=== PATIENT | female | born 1975 | race Caucasian/White ===

== ENCOUNTER 2017-01-18 19:48 | Emergency (ER) | payer BC ==
[2017-01-18] MEDS ORDERED: ALBUTEROL SULFATE 0.083% NEB 2.5 MG/3 ML AMPUL NEB ONE ×3 (19:52→22:32)
[2017-01-18] MEDS ORDERED: PREDNISONE 20 MG TABLET PO ONE (19:52)
--- NOTE | 2017-01-18 19:56 | ER Document Report ---
ED Medical Screen (RME) - General Stated Complaint: DIFFICULTY BREATHING Notes: She states for the last 3 days she has been having difficulty breathing. Using her nebulizer at home with no relief. 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 States problems with asthma began about 6 years ago. Has been hospitalized for this before. Denies fever, congestion. Denies chest pain but states chest feels tight. I have greeted and performed a rapid initial assessment of this patient. A comprehensive ED assessment and evaluation of the patient, analysis of test results and completion of the medical decision making process will be conducted by additional ED providers. TRAVEL OUTSIDE OF THE [place] IN LAST 30 DAYS: No - Related Data Allergies/Adverse Reactions: Sulfa (Sulfonamide Antibiotics) Allergy (Verified 11/19/15 06:23) Past Medical History - Past Medical History Cardiac Medical History: Denies: Hx Coronary Artery Disease, Hx Heart Attack, Hx Hypertension Pulmonary Medical History: Reports: Hx Asthma - Hospitalized & February 2015 , Hx Pneumonia - 3-4 yrs ago Denies: Hx Bronchitis, Hx COPD, Hx Tuberculosis Neurological Medical History: Denies: Hx Cerebrovascular Accident, Hx Seizures Musculoskeltal Medical History: Denies Hx Arthritis Past Surgical History: Reports: Hx Breast Surgery - left breast lump removed, Hx Hysterectomy - partial, Hx Orthopedic Surgery - RIGHT ANKLE ORIF, Hx Tubal Ligation. Denies: Hx Pacemaker - Immunizations Hx Diphtheria, Pertussis, Tetanus Vaccination: Yes Physical Exam - Respiratory Notes: Patient has audible wheezing in triage. Speaks in full sentences, but noted to be taking short, shallow breaths.
[2017-01-18] MEDS ORDERED: MAGNESIUM SULFATE/D5W 1 GM/100 ML RTUPB IV ONE ×2 (22:32→22:53)
[2017-01-18] MEDS ORDERED: IPRATROPIUM/ALBUTEROL 0.5-2.5 MG/3 ML AMPUL NEB ONE (22:32)
[2017-01-18] MEDS ORDERED: METHYLPREDNISOLONE INJ 125 MG/2 ML SDV IV ONE (22:32)
--- NOTE | 2017-01-18 22:34 | ER Document Report ---
ED Respiratory Problem - General Chief Complaint: Breathing Difficulty Stated Complaint: DIFFICULTY BREATHING Time seen by provider: 22:33 Mode of Arrival: Ambulatory Information source: Patient TRAVEL OUTSIDE OF THE [place] IN LAST 30 DAYS: No - HPI Patient complains to provider of: Asthma, Cough, Short of breath Onset: Other - 3 days Duration: Worse/persistent Context: Hx asthma Short of Breath: Moderate Chest pain/discomfort: Tightness Cough: Productive Sputum amount: Small Sputum color: Yellow Sputum consistency: Mucoid At home treatment: Bronchodilators Associated symptoms: Congestion, Cough, Short of breath, Wheezing Similar symptoms previously: Yes Recently seen / treated by doctor: No Notes: Patient is a 41-year-old female with a history of asthma who presents to the emergency room complaining of difficulty breathing that's been worsening over the past 3 days, she recently completed a course of steroids approximate 5 days ago, she reports increased pollen contact over the last few days, a cough productive of thick yellow greenish phlegm, denies fever, has been using her albuterol inhaler and nebulizer treatments at home with minimal intermittent relief, denies a fever, no chest pain - Related Data Allergies/Adverse Reactions: Sulfa (Sulfonamide Antibiotics) Allergy (Verified 11/19/15 06:23) Past Medical History - General Information source: Patient - Social History Smoking Status: Never Smoker Chew tobacco use (# tins/day): No Frequency of alcohol use: None Drug Abuse: None Family History: Reviewed & Not Pertinent Patient has suicidal ideation: No Patient has homicidal ideation: No - Past Medical History Cardiac Medical History: Denies: Hx Coronary Artery Disease, Hx Heart Attack, Hx Hypertension Pulmonary Medical History: Reports: Hx Asthma - Hospitalized & February 2015 , Hx Pneumonia - 3-4 yrs ago Denies: Hx Bronchitis, Hx COPD, Hx Tuberculosis Neurological Medical History: Denies: Hx Cerebrovascular Accident, Hx Seizures Renal/ Medical History: Denies: Hx Peritoneal Dialysis Musculoskeltal Medical History: Denies Hx Arthritis Past Surgical History: Reports: Hx Breast Surgery - left breast lump removed, Hx Hysterectomy - partial, Hx Orthopedic Surgery - RIGHT ANKLE ORIF, Hx Tubal Ligation. Denies: Hx Pacemaker - Immunizations Hx Diphtheria, Pertussis, Tetanus Vaccination: Yes Hx Pneumococcal Vaccination: 02/07/15 Review of Systems - Review of Systems Constitutional: No symptoms reported EENT: No symptoms reported Cardiovascular: No symptoms reported Respiratory: See HPI Gastrointestinal: No symptoms reported Genitourinary: No symptoms reported Female Genitourinary: No symptoms reported Musculoskeletal: No symptoms reported Skin: No symptoms reported Hematologic/Lymphatic: No symptoms reported Neurological/Psychological: No symptoms reported -: Yes All other systems reviewed and negative Physical Exam - Vital signs Vitals: Temp Pulse Resp BP Pulse Ox 98.3 F 131 H 28 H 142/88 H 93 01/18/17 19:53 01/18/17 19:53 01/18/17 19:53 01/18/17 19:53 01/18/17 19:53 Interpretation: Hypertensive, Tachycardic, Tachypneic - General General appearance: Appears well, Alert - HEENT Head: Normocephalic, Atraumatic Eyes: Normal Pupils: PERRL - Respiratory Respiratory status: No respiratory distress Chest status: Nontender Breath sounds: Decreased air movement, Nonproductive cough, Wheezing Chest palpation: Normal - Cardiovascular Rhythm: Regular, Tachycardia Heart sounds: Normal auscultation Murmur: No - Abdominal Inspection: Normal Distension: No distension Bowel sounds: Normal Tenderness: Nontender Organomegaly: No organomegaly - Back Back: Normal, Nontender - Extremities General upper extremity: Normal inspection, Nontender, Normal color, Normal ROM , Normal temperature General lower extremity: Normal inspection, Nontender, Normal color, Normal ROM , Normal temperature, Normal weight bearing. No: Cris's sign - Neurological Neuro grossly intact: Yes Cognition: Normal Orientation: AAOx4 Becca Coma Scale Eye Opening: Spontaneous Becca Coma Scale Verbal: Oriented Becca Coma Scale Motor: Obeys Commands Becca Coma Scale Total: 15 Speech: Normal Motor strength normal: LUE, RUE, LLE, RLE Sensory: Normal - Psychological Associated symptoms: Normal affect, Normal mood - Skin Skin Temperature: Warm Skin Moisture: Dry Skin Color: Normal Course - Re-evaluation Re-evalutation: 01/19/17 01:43 Patient reports feeling much better, and ready to go home, she still has mild wheezing on exam, but is able to talk in full sentences, and vital signs are stable, she will be discharged with a tapering dose pack of steroids, and instructions for follow-up, advised to return if symptoms worsen, patient acknowledges understanding and agreement with this plan - Vital Signs Vital signs: Temp Pulse Resp BP Pulse Ox 98.3 F 131 H 28 H 142/88 H 93 01/18/17 19:53 01/18/17 19:53 01/18/17 19:53 01/18/17 19:53 01/18/17 19:53 - Diagnostic Test Radiology reviewed: Image reviewed, Reports reviewed Discharge - Discharge Clinical Impression: Acute asthma exacerbation Qualifiers: Asthma severity: moderate persistent Qualified Code(s): J45.41 - Moderate persistent asthma with (acute) exacerbation Condition: Stable Disposition: HOME, SELF-CARE Instructions: Asthma ([facility]) Additional Instructions: Follow up with your primary care provider in one to 2 days. Return to the emergency room immediately if symptoms worsen or any additional concerns. Prescriptions: Prednisone 40 mg PO DAILY #25 tablet Referrals: SHAKEEL ESTES MD [Primary Care Provider] - Follow up as needed
[2017-01-19] MEDS ORDERED: ALBUTEROL SULFATE 0.083% NEB 2.5 MG/3 ML AMPUL NEB ONE (00:52)
[2017-01-19 02:05] VITALS: BP 125/73
== END 2017-01-19 02:32 | disposition home or self-care (01) ==
LOC: ER 19:48
DX: J45.41 Moderate persistent asthma with (acute) exacerbation (principal); R06.02 Shortness of breath; R05 Cough; R00.0 Tachycardia, unspecified; Z88.2 Allergy status to sulfonamides; Z87.01 Personal history of pneumonia (recurrent)
CPT/HCPCS: 94640 ×2; 99285; 96375; 96365; 96366; 71020; J2930; J3475 ×2; J7512; J7620

== ENCOUNTER 2017-02-17 20:02 | Emergency (ER) | payer BC ==
[2017-02-17] MEDS ORDERED: MAGNESIUM SULFATE/D5W 2 GM/200 ML RTUPB IV ONE (20:09)
[2017-02-17] MEDS ORDERED: ALBUTEROL SULFATE 0.083% NEB 2.5 MG/3 ML AMPUL NEB ONE (20:15)
[2017-02-17] MEDS ORDERED: NORMAL SALINE 1000 ML 1,000 ML IV ONE (20:16)
[2017-02-17] MEDS: MAGNESIUM SULFATE/D5W 100 ML IV SCH ×2 (20:18→21:58)
--- NOTE | 2017-02-17 20:24 | ER Document Report ---
ED General - General Stated Complaint: RESPIRATORY DISTRESS Notes: A she is a 41-year-old female past medical history of asthma that has required multiple admissions in the past but no prior intubations who presents in respiratory distress. Patient states that she began having progressive worsening of her wheezing and coughing today. She was using home nebulizer treatments with minimal to no improvement of her symptoms. This did prompt her to contact EMS. States she's had similar exacerbations in the past that required hospitalization. She was recently treated with a prednisone taper that she completed 2 weeks ago and states she had been doing well up until last 2 days. She denies any constitutional symptoms or fever. No chest pain or pleuritic pain. Nothing worsens or symptoms. She has not seen her primary care doctor since her symptoms started getting worse. TRAVEL OUTSIDE OF THE [place] IN LAST 30 DAYS: No - Related Data Allergies/Adverse Reactions: Sulfa (Sulfonamide Antibiotics) Allergy (Verified 11/19/15 06:23) Past Medical History - General Information source: Patient - Social History Smoking Status: Never Smoker Frequency of alcohol use: None Drug Abuse: None Lives with: Family Family History: Reviewed & Not Pertinent - Past Medical History Cardiac Medical History: Denies: Hx Coronary Artery Disease, Hx Heart Attack, Hx Hypertension Pulmonary Medical History: Reports: Hx Asthma - Hospitalized h & February 2015 , Hx Pneumonia - 3-4 yrs ago Denies: Hx Bronchitis, Hx COPD, Hx Tuberculosis Neurological Medical History: Denies: Hx Cerebrovascular Accident, Hx Seizures Renal/ Medical History: Denies: Hx Peritoneal Dialysis Musculoskeltal Medical History: Denies Hx Arthritis Past Surgical History: Reports: Hx Breast Surgery - left breast lump removed, Hx Hysterectomy - partial, Hx Orthopedic Surgery - RIGHT ANKLE ORIF, Hx Tubal Ligation. Denies: Hx Pacemaker - Immunizations Hx Diphtheria, Pertussis, Tetanus Vaccination: Yes Hx Pneumococcal Vaccination: 02/07/15 Review of Systems - Review of Systems Notes: Constitutional: Negative for fever. HENT: Negative for sore throat. Eyes: Negative for visual changes. Cardiovascular: Negative for chest pain. Respiratory: Positive for shortness of breath. Gastrointestinal: Negative for abdominal pain, vomiting or diarrhea. Genitourinary: Negative for dysuria. Musculoskeletal: Negative for back pain. Skin: Negative for rash. Neurological: Negative for headaches, weakness or numbness. 10 point ROS negative except as marked above and in HPI. Physical Exam - Vital signs Vitals: Temp Pulse Resp BP Pulse Ox 98.8 F 120 H 28 H 134/80 H 95 02/17/17 20:10 02/17/17 20:10 02/17/17 20:10 02/17/17 20:10 02/17/17 20:10 Interpretation: Tachycardic, Tachypneic Notes: PHYSICAL EXAMINATION: GENERAL: Patient appears in moderate respiratory distress, uncomfortable in appearance. HEAD: Atraumatic, normocephalic. EYES: Pupils equal round and reactive to light, extraocular movements intact, sclera anicteric, conjunctiva are normal. ENT: nares patent, oropharynx clear without exudates. Moderately dry mucous membranes. NECK: Normal range of motion, supple without lymphadenopathy LUNGS: Tachypnea with initial respiratory rate of 34 at time of assessment. Diminished air movement in all lung soto. Severe wheezing with prolonged expiratory phase in all lung soto. HEART: Tachycardia without murmurs ABDOMEN: Soft, nontender, normoactive bowel sounds. No guarding, no rebound. No masses appreciated. EXTREMITIES: Normal range of motion, no pitting or edema. No cyanosis. NEUROLOGICAL: No focal neurological deficits. Moves all extremities spontaneously and on command. PSYCH: Normal mood, normal affect. SKIN: Warm, Dry, normal turgor, no rashes or lesions noted. Course - Re-evaluation Re-evalutation: 02/17/17 20:17 Patient presents in moderate respiratory distress, with super clavicular costal retractions. She is tachypneic. She has already received 125 mg of Solu- Medrol prior to arrival. She will be started on 2 g of IV magnesium with rapid infusion over 20 minutes. IV fluids will be initiated. She will be started on continuous albuterol nebulizers at this time. sales vendor will be placed. She will require frequent reassessments given her distress. 2044-patient continues with moderate respiratory distress although improved relative to arrival. She remains slightly tachypneic with wheezing in all lung soto. Will continue to monitor 02/17/17 21:57 On reassessment, patient is dramatically improved no longer having any respiratory distress. She has only a scant wheeze in the bilateral lung soto on expiratory phase at this time. Once she completes her continuous nebulizer, will plan for monitoring for at least one hour off continuous nebulizer prior to consideration of discharge 02/17/17 23:22 Patient's work of breathing is now normalized although her oxygen saturation is at 92% on room air. I have discussed at length with the patient that given her oxygen saturation dips as low as 89% despite our interventions she should be admitted to the hospital as she is very high risk for decompensation if she is to be discharged. Patient states that she's been admitted so many times in the past and so tired of being in hospitals that she really does not want to be admitted. She verbalizes an understanding that if she goes home, she could get significantly sicker and even . Patient does have capacity to make this decision. She has sound reasoning and logic. She is not intoxicated. Multiple her family members at the bedside are witnesses conversation including her daughters. She states that she plans to follow-up in her pulmonologists office immediately in the morning and will immediately return to the emergency department if she begins to get sicker. - Vital Signs Vital signs: Temp Pulse Resp BP Pulse Ox 98.8 F 120 H 28 H 105/83 90 L 02/17/17 20:10 02/17/17 20:10 02/17/17 20:10 02/17/17 23:01 02/17/17 23:01 - Diagnostic Test Radiology reviewed: Image reviewed, Reports reviewed Radiology results interpreted by me: 02/18/17 03:10 Chest x-ray: No acute infiltrate Critical Care Note - Critical Care Note Total time excluding time spent on procedures (mins): 40 Comments: Critical care time spent obtaining history from patient or surrogate, discussions with consultants, development of treatment plan with patient or surrogate, evaluation of patient's response to treatment, examination of patient , ordering and performing treatments and interventions, ordering and review of laboratory studies, re-evaluation of patient's condition, ordering and review of radiographic studies and review of old charts Discharge - Discharge Clinical Impression: Asthma exacerbation, Respiratory distress Condition: Serious Disposition: HOME, SELF-CARE Additional Instructions: You were seen for an asthma exacerbation. We recommended you be admitted to the hospital but you have elected to go home and follow-up with your dosimetrist in the morning. It is very important that you return to the emergency department immediately if you began to have worsening difficulty breathing that does not respond to your normal home nebulizers. You are also being sent home on a five-day course of steroids that you should start taking tomorrow. Please also follow closely with your primary care physician. you should also return to emergency department if you develop fever greater than 101 , persistent cough, persistent vomiting, pass out, or any other symptoms that are concerning to you. Prescriptions: Prednisone [Deltasone 20 mg Tablet] 3 tab PO DAILY 5 Days Referrals: SHAKEEL ESTES MD [Primary Care Provider] - Follow up as needed
[2017-02-17 23:51] VITALS: BP 105/83
== END 2017-02-17 23:25 | disposition home or self-care (01) ==
LOC: ER 20:02
DX: J45.901 Unspecified asthma with (acute) exacerbation (principal); R05 Cough; R06.82 Tachypnea, not elsewhere classified; R00.0 Tachycardia, unspecified; Z88.2 Allergy status to sulfonamides
CPT/HCPCS: 94640; 99291; 96361; 96365; 71010; J3475; J7030

== ENCOUNTER → 2017-06-15 | Outpatient (CLI) | payer BC ==
--- NOTE | 2017-06-15 15:32 | RADIOLOGY REPORT (SQ) ---
EXAM DESCRIPTION: C SP 4 OR 5 VIEWS COMPLETED DATE/TIME: 06/15/2017 11:25 am REASON FOR STUDY: CERVICALGIA COMPARISON: None. NUMBER OF VIEWS: Five views including obliques. TECHNIQUE: AP, lateral, obliques and odontoid radiographic images acquired of the cervical spine. LIMITATIONS: None. FINDINGS: MINERALIZATION: Normal. SEGMENTATION: Normal. ALIGNMENT: Normal. VERTEBRAE: Maintained height. No fracture or worrisome bone lesion. DISCS: Multilevel disc space narrowing with osteophytes. POSTERIOR ELEMENTS: Pedicles and facets are intact. No posterior arch defects. Facet arthropathy is present. FORAMINA: Narrowed at the levels of maximal disc and facet disease. HARDWARE: None in the spine. PARASPINAL SOFT TISSUES: Normal. OTHER: No other significant finding. IMPRESSION: SPONDYLOSIS WITHOUT BONE LESION OR FRACTURE. TECHNICAL DOCUMENTATION: JOB ID: [id number] [employer]- All Rights Reserved
== END ==
LOC: OD 10:19
PROVIDERS: ATTEND Physician Assistant
DX: M54.2 Cervicalgia (principal)
CPT/HCPCS: 72050

== ENCOUNTER → 2017-08-23 | Outpatient (CLI) | payer BC ==
[2017-08-23 12:26] LABS: ABSOLUTE BASOPHILS # (AUTO) 0.1 10^3/uL (0.0-0.2); ABSOLUTE EOSINOPHILS # (AUTO) 0.4 10^3/uL (0.0-0.6); ABSOLUTE LYMPHOCYTES (AUTO) 2.7 10^3/uL (0.5-4.7); ABSOLUTE MONOCYTES (AUTO) 0.9 10^3/uL (0.1-1.4); ABSOLUTE NEUT (AUTO) 9.9 10^3/uL (1.7-8.2); BASOPHILS % (AUTO) 0.7 % (0-2); EOSINOPHILS % (AUTO) 2.9 % (0-6); HEMATOCRIT 39.4 % (36.0-47.0); HEMOGLOBIN 12.7 g/dL (12.0-15.5); HGB HCT DIFFERENCE -1.3; LYMPHOCYTES % (AUTO) 19.1 % (13-45); MEAN CORPUSCULAR HEMOGLOBIN 28.6 pg (27.0-33.4); MEAN CORPUSCULAR HGB CONC 32.3 g/dL (32.0-36.0); MEAN CORPUSCULAR VOLUME 89 fl (80-97); MONOCYTES % (AUTO) 6.7 % (3-13); RED BLOOD COUNT 4.45 10^6/uL (3.72-5.28); RED CELL DISTRIBUTION WIDTH 13.7 % (11.5-14.0); SEGMENTED NEUTROPHILS % (AUTO) 70.6 % (42-78)
[2017-08-23 12:50] LABS: ALANINE AMINOTRANSFERASE 32 U/L (9-52); ALBUMIN 3.9 g/dL (3.5-5.0); ALKALINE PHOSPHATASE 96 U/L (38-126); ANION GAP 10 (5-19); ASPARTATE AMINO TRANSFERASE 14 U/L (14-36); BILIRUBIN,DIRECT 0.3 mg/dL (0.0-0.4); BILIRUBIN,TOTAL 0.5 mg/dL (0.2-1.3); BLOOD UREA NITROGEN 14 mg/dL (7-20); CALCIUM 9.5 mg/dL (8.4-10.2); CARBON DIOXIDE 26 mmol/L (22-30); CHLORIDE 106 mmol/L (98-107); CREATINE KINASE 59 U/L (30-135); CREATININE RESULT 0.77 mg/dL (0.52-1.25); GLUCOSE 77 mg/dL (75-110); POTASSIUM 4.5 mmol/L (3.6-5.0); SODIUM 141.6 mmol/L (137-145); TOTAL PROTEIN 6.8 g/dL (6.3-8.2)
[2017-08-23 12:57] LABS: CREATINE KINASE MB 0.49 ng/mL (<4.55)
[2017-08-23 13:03] LABS: TROPONIN I < 0.012 ng/mL
[2017-08-23 13:22] LABS: ERYTHROCYTE SEDIMENTATION RATE 16 mm/hr (0-20)
== END ==
LOC: OD 10:59
PROVIDERS: ATTEND Physician Assistant
DX: R07.9 Chest pain, unspecified (principal)
CPT/HCPCS: 36415; 80053; 82550; 82553; 84484; 85025; 85652

== ENCOUNTER 2017-11-17 15:04 | Emergency (ER) | payer BC | END 2017-11-17 17:05 | disposition home or self-care (01) | LOC: ER 15:04 | DX: H10.9 Unspecified conjunctivitis (principal); J02.9 Acute pharyngitis, unspecified | CPT/HCPCS: 99282 ==

== ENCOUNTER 2017-12-25 14:01 | Emergency (ER) | payer BC ==
[2017-12-25] MEDS ORDERED: ALBUTEROL SULFATE 0.083% NEB 2.5 MG/3 ML AMPUL NEB ONE (15:51)
--- NOTE | 2017-12-25 15:52 | ER Document Report ---
HPI - HPI Pain Level: Denies Context: Patient is a 42-year-old female presents emergency department with a chief complaint of feeling tired, nonproductive cough, nausea over the past couple of days. Patient states that she was sent here by her employer to be checked out. Patient does admit to a history of asthma that she follows with Dr. Mcdaniel for and is on chronic prednisone. She states she occasionally coughs up some sputum but denies any ortiz colored sputum, fever, dyspnea on exertion or shortness of breath. She denies any fevers or chills. Previous hysterectomy - REPRODUCTIVE LMP: hyst Reproductive: DENIES: : Past Medical History - Social History Smoking Status: Never Smoker Chew tobacco use (# tins/day): No Frequency of alcohol use: None Drug Abuse: None Family History: Reviewed & Not Pertinent Patient has suicidal ideation: No Patient has homicidal ideation: No - Past Medical History Cardiac Medical History: Denies: Hx Coronary Artery Disease, Hx Heart Attack, Hx Hypertension Pulmonary Medical History: Reports: Hx Asthma - Hospitalized & February 2015 , Hx Pneumonia - 3-4 yrs ago Denies: Hx Bronchitis, Hx COPD, Hx Tuberculosis Neurological Medical History: Denies: Hx Cerebrovascular Accident, Hx Seizures Renal/ Medical History: Denies: Hx Peritoneal Dialysis Musculoskeltal Medical History: Denies Hx Arthritis Past Surgical History: Reports: Hx Breast Surgery - left breast lump removed, Hx Hysterectomy, Hx Orthopedic Surgery - RIGHT ANKLE ORIF, Hx Tubal Ligation. Denies: Hx Pacemaker - Immunizations Hx Diphtheria, Pertussis, Tetanus Vaccination: Yes Hx Pneumococcal Vaccination: 02/07/15 Vertical Provider Document - CONSTITUTIONAL Agree With Documented VS: Yes Notes: PHYSICAL EXAM GENERAL: Alert, interacts well. HEAD: Normocephalic, atraumatic. EYES: Pupils equal, round, and reactive to light. Extraocular movements intact. ENT: Oral mucosa moist, tongue midline. NECK: Full range of motion. Supple. Trachea midline. LUNGS: MIld wheezes bilaterally worse in KERRI, rales, or rhonchi. No respiratory distress. HEART: Regular rate and rhythm. No murmurs, gallops, or rubs. ABDOMEN: Soft, nondistended, nontender. No guarding, rebound, or rigidity.. Bowel sounds present in all 4 quadrants. EXTREMITIES: Moves all 4 extremities spontaneously. No edema, radial and dorsalis pedis pulses 2/4 bilaterally. No cyanosis. NEUROLOGICAL: Alert and oriented x4. Normal speech. PSYCH: Normal affect, normal mood. SKIN: Warm, dry, normal turgor. No rashes or lesions noted. - INFECTION CONTROL TRAVEL OUTSIDE OF THE [place] IN LAST 30 DAYS: No - RESPIRATORY O2 Sat by Pulse Oximetry: 95 Course - Re-evaluation Re-evalutation: 12/25/17 16:46 Patient is a 42-year-old female presents emergency department the chief complaint of nausea, nonproductive cough. Patient's vitals are stable and able to ambulate and maintain the saturation 9690% on room air. Patient states she clinically feels better after breathing treatment. Chest x-ray does not show any evidence of an infiltrate. 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 Mcdaniel tomorrow otherwise will discharge home with rescue inhaler and Zofran. Discussed strict return precautions otherwise patient is stable for discharge home. - Vital Signs Vital signs: Temp Pulse Resp BP Pulse Ox 98.6 F 108 H 18 131/82 H 95 12/25/17 14:21 12/25/17 14:21 12/25/17 14:21 12/25/17 14:21 12/25/17 14:21 - Diagnostic Test Radiology reviewed: Image reviewed, Reports reviewed Discharge - Discharge Clinical Impression: Nausea Asthma exacerbation Qualifiers: Asthma severity: unspecified severity Asthma persistence: unspecified Qualified Code(s): J45.901 - Unspecified asthma with (acute) exacerbation Condition: Good Disposition: HOME, SELF-CARE Instructions: Asthma ([facility]) Prescriptions: Albuterol Sulfate [Proair HFA] 1 - 2 puff IH Q4 PRN #1 inhaler PRN Reason: Ondansetron [Zofran Odt 4 mg Tablet] 1 - 2 tab PO Q4H PRN #15 tab.rapdis PRN Reason: For Nausea/Vomiting Forms: Return to Work Referrals: JEAN PIERRE MCDANIEL MD [ACTIVE STAFF] - Follow up tomorrow
--- NOTE | 2017-12-25 16:11 | RADIOLOGY REPORT (SQ) ---
Exam Description CHEST PA/LAT Completed Date/time 12/25/2017 4:03 PM Reason For Study h/o asthma, sweats and prod cough Comparison 01/18/2017. Exam Parameters NUMBER OF VIEWS: Two views. TECHNIQUE: Digital Frontal and Lateral radiographic views of the chest acquired. Limitations: (None). Findings LUNGS AND PLEURA: No opacities, masses or pneumothorax No pleural effusion. MEDIASTINUM AND HILAR STRUCTURES: No masses or contour abnormalities. HEART AND VASCULAR STRUCTURES: Heart size is normal. No evidence for failure. (Normal appearing aorta for age.) . BONES: No acute findings. HARDWARE: None. Impression NO SIGNIFICANT RADIOGRAPHIC FINDING IN THE CHEST. Technical Documentation 2010 [employer]- All Rights Reserved
[2017-12-25 16:53] VITALS: BP 123/84
== END 2017-12-25 16:50 | disposition home or self-care (01) ==
LOC: ER 14:01
DX: J45.901 Unspecified asthma with (acute) exacerbation (principal); R11.0 Nausea
CPT/HCPCS: 71046; 94640; 99283

== ENCOUNTER 2018-01-02 08:45 | Emergency (ER) | payer BC ==
[2018-01-02] MEDS ORDERED: ALBUTEROL SULFATE 0.083% NEB 2.5 MG/3 ML AMPUL NEB ONE ×4 (09:22→12:36)
[2018-01-02] MEDS ORDERED: IPRATROPIUM/ALBUTEROL 0.5-2.5 MG/3 ML AMPUL NEB ONE (09:22)
--- NOTE | 2018-01-02 09:25 | ER Document Report ---
ED Respiratory Problem - General Mode of Arrival: Ambulatory Information source: Patient TRAVEL OUTSIDE OF THE [place] IN LAST 30 DAYS: No - HPI Patient complains to provider of: Asthma, Cough, Short of breath Onset: This morning Context: Hx asthma. denies: Smoker Cough: Productive At home treatment: Bronchodilators - Albuterol Associated symptoms: Other - see notes above - General Chief Complaint: Wheezing >1yr age Stated Complaint: BREATHING PROBLEMS Time Seen by Provider: 01/02/18 09:11 Notes: 42 year old female with history of asthma (daily Prednisone x4 years; recently started tapering medication now on one 5mg daily) presents to the ED complaining of shortness of breath and wheezing that started this morning. Patient took an Albuterol treatment at 0600 with minimal relief. 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 Mcdaniel, but was unable to get an appointment today. When the patient continued to wheeze she decided to come to the ED. Patient additionally complains of a productive cough. Patient has not been intubated secondary to her asthma exacerbations. (MANUELA ESTES) - Related Data Allergies/Adverse Reactions: Sulfa (Sulfonamide Antibiotics) Allergy (Verified 01/02/18 08:48) Past Medical History - General Information source: Patient - Social History Smoking Status: Never Smoker Chew tobacco use (# tins/day): No Frequency of alcohol use: None Drug Abuse: None Family History: Reviewed & Not Pertinent - Past Medical History Cardiac Medical History: Denies: Hx Coronary Artery Disease, Hx Heart Attack, Hx Hypertension Pulmonary Medical History: Reports: Hx Asthma - Hospitalized January & February 2015 , Hx Pneumonia - 3-4 yrs ago Denies: Hx Bronchitis, Hx COPD, Hx Tuberculosis Neurological Medical History: Denies: Hx Cerebrovascular Accident, Hx Seizures Renal/ Medical History: Denies: Hx Peritoneal Dialysis Musculoskeltal Medical History: Denies Hx Arthritis Past Surgical History: Reports: Hx Breast Surgery - left breast lump removed, Hx Hysterectomy, Hx Orthopedic Surgery - RIGHT ANKLE ORIF, Hx Tubal Ligation. Denies: Hx Pacemaker - Immunizations Hx Diphtheria, Pertussis, Tetanus Vaccination: Yes Hx Pneumococcal Vaccination: 02/07/15 Review of Systems - Review of Systems Constitutional: No symptoms reported EENT: No symptoms reported Cardiovascular: No symptoms reported Respiratory: See HPI, Cough, Short of breath, Sputum, Wheezing Gastrointestinal: No symptoms reported Genitourinary: No symptoms reported Female Genitourinary: No symptoms reported Musculoskeletal: No symptoms reported Skin: No symptoms reported Hematologic/Lymphatic: No symptoms reported Neurological/Psychological: No symptoms reported -: Yes All other systems reviewed and negative Physical Exam - Vital signs Vitals: Temp Pulse Resp BP Pulse Ox 98.0 F 125 H 20 141/82 H 94 01/02/18 08:49 01/02/18 08:49 01/02/18 08:49 01/02/18 08:49 01/02/18 08:49 - Notes Notes: GENERAL: Alert, interacts well. No acute distress. HEAD: Normocephalic, atraumatic. EYES: Pupils equal, round, and reactive to light. Extraocular movements intact. ENT: Oral mucosa moist, tongue midline. NECK: Full range of motion. Supple. Trachea midline. LUNGS: Diffuse expiratory wheezing. Good air movement. No rales, or rhonchi. No respiratory distress. No tachypnea or accessory muscle use. HEART: Regular rate and rhythm. No murmurs, gallops, or rubs. ABDOMEN: Soft, non-tender. Non-distended. Bowel sounds present in all 4 quadrants. EXTREMITIES: Moves all 4 extremities spontaneously. No edema, radial pulses 2/4 bilaterally. No cyanosis. NEUROLOGICAL: Alert and oriented x3. Normal speech. PSYCH: Normal affect, normal mood. SKIN: Warm, dry, normal turgor. No rashes or lesions noted. (MANUELA ESTES) Course - Re-evaluation Re-evalutation: 01/02/18 10:48 Initially patient has a moderate amount of wheezing although she is in no obvious respiratory distress, no significant hypoxia. Patient has recently been tapered from 10 mg a day of prednisone to 5 mg a day, patient will be increased to 7.5 mg and trialed on multiple breathing treatments here. After 3 [id number] breathing treatments patient has some decrease in her wheezing and feels better however she still has significant wheezing. One more 5 mg albuterol breathing treatment will be attempted. 01/02/18 12:24 Wheezing is improved although not completely resolved with a fourth breathing treatment. Patient is feeling much better. Patient is agreeable to going home at this time, we will slightly increase her prednisone to 7.5 mg per day. Patient will be discharged to home, will take albuterol breathing treatments every 4 hours for the next 2 days, will return if she worsens or does not improve. 01/02/18 12:29 01/02/18 12:37 Discharge vitals revealed hypoxia at 90-91%. Obviously with this oxygen saturation the patient cannot be discharged home, patient will be trialed on one more breathing treatment and if hypoxia does not resolve patient will be admitted instead. 01/02/18 14:16 After repeat breathing treatment patient's oxygen saturations are consistently approximately 97% on room air, he was ambulated and did not desaturate below 94% . Patient is in no acute distress, will be discharged home at this time. ( NEWTON CHANEY) - Vital Signs Vital signs: Temp Pulse Resp BP Pulse Ox 98.7 F 112 H 18 113/69 95 01/02/18 14:05 01/02/18 14:05 01/02/18 14:05 01/02/18 14:05 01/02/18 14:05 Discharge - Discharge Clinical Impression: Acute asthma exacerbation Qualifiers: Asthma severity: moderate Asthma persistence: persistent Qualified Code(s): J45.41 - Moderate persistent asthma with (acute) exacerbation Hypertension Qualifiers: Hypertension type: essential hypertension Qualified Code(s): I10 - Essential ( primary) hypertension Condition: Stable Disposition: HOME, SELF-CARE Additional Instructions: Please take your albuterol breathing treatments 1 treatment every 4 hours while awake for the next 2 days. You may then decrease as needed back to regular schedule. Please increase your prednisone to 7.5 mg once a day for the next week then returned to 5 mg a day and return to regular weaning schedule. Prescriptions: Albuterol Sulfate [Albuterol Sulfate 2.5mg/3 mL] 2.5 mg IH Q4 #30 unit Prednisone 2.5 mg PO DAILY #7 tablet Forms: Elevated Blood Pressure, Return to Work Referrals: SHAKEEL ESTES MD [Primary Care Provider] - Follow up in 1 week Scribe Attestation: 01/02/18 14:50 I personally performed the services described in the documentation, reviewed and edited the documentation which was dictated to the scribe in my presence, and it accurately records my words and actions. (NEWTON CHANEY) Scribe Documentation - Scribe Written by Jameeibe:: Richard Wang, 01/02/2018 0947 acting as scribe for :: Joanna
[2018-01-02] MEDS ORDERED: PREDNISONE 5 MG TABLET PO ONE (10:47)
[2018-01-02 14:06] VITALS: BP 113/69
== END 2018-01-02 14:05 | disposition home or self-care (01) ==
LOC: ER 08:45
DX: J45.41 Moderate persistent asthma with (acute) exacerbation (principal); I10 Essential (primary) hypertension; Z88.2 Allergy status to sulfonamides
CPT/HCPCS: 94640 ×2; 99284; J7512; J7620

== ENCOUNTER 2018-01-12 13:44 | Emergency (ER) | payer BC ==
[2018-01-12] MEDS ORDERED: IPRATROPIUM/ALBUTEROL 0.5-2.5 MG/3 ML AMPUL NEB ONE (13:55)
[2018-01-12] MEDS ORDERED: PREDNISOLONE SOD PHOS 15 MG/5 ML ORAL SYRING PO ONE (13:55)
--- NOTE | 2018-01-12 13:58 | ER Document Report ---
ED Medical Screen (RME) - General Chief Complaint: Shortness Of Breath Stated Complaint: WHEEZING Time Seen by Provider: 01/12/18 13:55 Notes: Patient is here because she is having difficulty breathing and wheezing. She has a history of asthma for which she has home nebulizer and has been using albuterol every 4 hours and Pulmicort twice a day. She was on prednisone, but only taking 2.5 mg pills and ran out of them. Has a cough productive of thick yellow sputum. TRAVEL OUTSIDE OF THE [place] IN LAST 30 DAYS: No - Related Data Allergies/Adverse Reactions: Sulfa (Sulfonamide Antibiotics) Allergy (Verified 01/02/18 08:48) Past Medical History - Social History Cigarette use (# per day): No Chew tobacco use (# tins/day): No Family history: Reviewed & Not Pertinent Pulmonary Medical History: Reports: Hx Asthma - Hospitalized January & February 2015 , Hx Pneumonia - 3-4 yrs ago Past Surgical History: Reports: Hx Breast Surgery - left breast lump removed, Hx Genitourinary Surgery - Bladder tuck, Hx Hysterectomy, Hx Orthopedic Surgery - RIGHT ANKLE ORIF, Hx Tubal Ligation. Denies: Hx Pacemaker - Immunizations Hx Diphtheria, Pertussis, Tetanus Vaccination: Yes Review of Systems - Review of Systems Notes: REVIEW OF SYSTEMS: CONSTITUTIONAL : Denies fever. EENT: Denies eye, ear, nose or mouth or throat pain or other symptoms. CARDIOVASCULAR: Denies chest pain. RESPIRATORY: See HPI. GASTROINTESTINAL: Denies abdominal pain or nausea, vomiting, or diarrhea. GENITOURINARY: Denies difficulty or painful urinating, urinary frequency, blood in urine. MUSCULOSKELETAL: Denies back or neck pain. Denies joint pain or swelling. SKIN: Denies rash or skin lesions. NEUROLOGICAL: Denies LOC or altered mental status. Denies headache. Denies sensory loss or motor deficits. ALL OTHER SYSTEMS REVIEWED AND NEGATIVE. Physical Exam - Vital signs Vitals: Temp Pulse BP Pulse Ox 98.5 F 122 H 122/74 92 01/12/18 13:47 01/12/18 13:47 01/12/18 13:47 01/12/18 13:47 Interpretation: Tachycardic - Slightly at 122 Notes: PHYSICAL EXAMINATION: GENERAL: Well-appearing, in no acute distress. Slightly tachycardic vital signs. HEAD: Atraumatic, normocephalic. EYES: Pupils equal round and reactive to light, extraocular movements intact. ENT: oropharynx clear without exudates. Moist mucous membranes. NECK: Normal range of motion, supple. LUNGS: Diffuse expiratory wheezes bilaterally. Moderate airflow. HEART: Regular rate and rhythm without murmurs. At patient's side, I took vital signs and heart rate is 100. ABDOMEN: Soft, nontender. No guarding or rebound. No masses. BACK: No tenderness throughout entire back. EXTREMITIES: Normal range of motion without pain. NEUROLOGICAL: Normal speech, normal gait. Normal sensory, motor, and reflex exams. Awake, alert, and oriented x3. Cranial nerves normal. PSYCH: Normal mood, normal affect. SKIN: Warm, dry, no rashes. Course - Re-evaluation Re-evalutation: 01/12/18 16:29 Patient received 3 nebulizer treatments, the first of the DuoNeb and the second and third of albuterol. She was given 80 mg of prednisone p.o. at the beginning of her treatment in the emergency department. Obtained a chest x-ray that shows no acute findings. Patient gradually improved with much improved airflow at the end of her stay. She still had diffuse expiratory wheezes, but nowhere near as tight as when she arrived and was initially examined. Her oxygen saturation is between 93 and 95% on room air. Heart rate is still 100 by me at discharge. Patient's being provided with a prescription for a declining dose of prednisone starting at 60 mg tomorrow and 10 mg less each day thereafter until finished. She is to continue her current home treatments of the nebulizer medications. - Vital Signs Vital signs: Temp Pulse Resp BP Pulse Ox 98.7 F 108 H 16 133/87 H 94 18 16:18 18 16:18 18 16:18 18 16:18 01/12/18 16:18 - Diagnostic Test Radiology results interpreted by me: 01/12/18 16:29 Chest x-ray is normal. Doctor's Discharge - Discharge Clinical Impression: Asthma exacerbation Condition: Stable Disposition: HOME, SELF-CARE Additional Instructions: ASTHMA: You have been diagnosed as having asthma. This is a condition where there is episodic tightness in the bronchial tubes. Allergies, infections, and polluted or cold air may be contributing factors. Emergency treatment of a severe asthma attack may include adrenaline shots , or bronchodilator aerosol. You may feel lightheaded, have a decreased exercise tolerance and a rapid pulse for an hour or two. Rest and get plenty of fluids. Home treatment of asthma requires bronchodilator drugs. These can be administered by injection, inhalation, or by mouth. Antibiotics and corticosteroids may be required for some patients. You should avoid chemical fumes, dusts, pollens, and exercising in very cold or dry air. If you smoke, stop!! If you develop a fever, increased wheezing, chest pain, or severe shortness of breath, you should contact the doctor immediately. STEROID MEDICATION: You have been given an injection of or oral medicine of the cortisone/ steroid class. This medication is used to control inflammation or allergy. Jw t is usually only given for a short period of time, until the acute process subsides. There are usually no side effects from short-term use of cortisone-like medications. Some persons feel an increased sense of well-being and are not sleepy at bedtime. Long-term use of cortisone medications is best avoided, unless required for a severe condition. If your condition does not remit, or relapses after the course of corticosteroid medication, you should consult your physician. INHALED BRONCHODILATORS: You have received treatment(s) of and/or prescription for an inhaled bronchodilator -- a medication which stimulates the airways in the lung to dilate. This improves the flow of air in asthma, bronchitis, and emphysema. These medicines have some similarity to adrenaline, and can cause similar side effects: shakiness, racing heart, and a sense of nervousness. These side effects decrease with time. Contact your doctor if these side effects are severe. Do not over-use the medicine. Too-frequent use of the inhaler may make it ineffective. Call your doctor if the inhaler is not controlling your symptoms at the prescribed doses. USE OF ACETAMINOPHEN: Acetaminophen may be taken for pain relief or fever control. It's much safer than aspirin, offering a wider range of "safe" dosages. It is safe during . Some brand names are Tylenol, Panadol, Datril, Anacin 3, Tempra, and Liquiprin. Acetaminophen can be repeated every four hours. The following are maximum recommended dosages: USE OF ACETAMINOPHEN (Tylenol): Acetaminophen may be taken for pain relief or fever control. It's much safer than aspirin, offering a wider range of "safe" dosages. It is safe during . Some brand names are Tylenol, Panadol, Datril, Anacin 3, Tempra, and Liquiprin. Acetaminophen can be repeated every four hours. The following are maximum recommended dosages: WEIGHT Dose Drops Elixir Chewable( 80mg) (LBS.) drprs=droppers tsp=teaspoon >89 pounds or adults 650 mg to 900 mg Acetaminophen can be repeated every four hours. Maximum dose not to exceed 4000 mg a day. These maximum recommended dosages are slightly higher than the dosages written on the product container, but these dosages are very safe and below the toxic dosage for acetaminophen. Continue to use your nebulizer with albuterol every 4 hours and continue using your nebulizer with Pulmicort twice a day. Start the prednisone that has been prescribed for you tomorrow. FOLLOW-UP CARE: If you have been referred to a physician for follow-up care, call the physician s office for an appointment as you were instructed or within the next two days. If you experience worsening or a significant change in your symptoms, notify the physician immediately or return to the Emergency Department at any time for re-evaluation. Prescriptions: Prednisone [Deltasone 10 mg Tablet] 10 mg PO ASDIR PRN #21 tablet PRN Reason: Referrals: SHAKEEL ESTES MD [Primary Care Provider] - Follow up as needed
[2018-01-12] MEDS ORDERED: ALBUTEROL SULFATE 0.083% NEB 2.5 MG/3 ML AMPUL NEB ONE ×2 (14:16→15:19)
--- NOTE | 2018-01-12 14:48 | RADIOLOGY REPORT (SQ) ---
EXAM DESCRIPTION: CHEST PA/LAT COMPLETED DATE/TIME: 01/12/2018 2:41 pm REASON FOR STUDY: Asthma, cough with thick sputum COMPARISON: 12/25/2017. EXAM PARAMETERS: NUMBER OF VIEWS: two views TECHNIQUE: Digital Frontal and Lateral radiographic views of the chest acquired. RADIATION DOSE: NA LIMITATIONS: none FINDINGS: LUNGS AND PLEURA: No opacities, masses or pneumothorax. No pleural effusion. MEDIASTINUM AND HILAR STRUCTURES: No masses or contour abnormalities. HEART AND VASCULAR STRUCTURES: Heart normal size. No evidence for failure. BONES: No acute findings. HARDWARE: None in the chest. OTHER: No other significant finding. IMPRESSION: NO SIGNIFICANT RADIOGRAPHIC FINDING IN THE CHEST. TECHNICAL DOCUMENTATION: JOB ID: [id number] [employer]- All Rights Reserved Reading location - IP/workstation name: [email or web address]
[2018-01-12 16:19] VITALS: BP 133/87
== END 2018-01-12 16:20 | disposition home or self-care (01) ==
LOC: ER 13:44
DX: J45.901 Unspecified asthma with (acute) exacerbation (principal); Z88.2 Allergy status to sulfonamides; Z90.710 Acquired absence of both cervix and uterus
CPT/HCPCS: 94640 ×2; 99284; 71046; J7510; J7620

== ENCOUNTER 2018-01-29 13:59 | Emergency (ER) | payer BC ==
[2018-01-29] MEDS ORDERED: PREDNISONE 20 MG TABLET PO ONE (14:36)
[2018-01-29] MEDS ORDERED: ALBUTEROL SULFATE 0.083% NEB 2.5 MG/3 ML AMPUL NEB ONE ×3 (14:36→16:15)
--- NOTE | 2018-01-29 14:37 | ER Document Report ---
ED Medical Screen (RME) - General Chief Complaint: Shortness Of Breath Stated Complaint: DIFFICULTY BREATHING Time Seen by Provider: 01/29/18 14:36 Notes: Patient states this is her third visit in the last month to month and half her wheezing. She states whenever she is on prednisone she does fine but as soon as prednisone runs out her wheezing returns. She states the inhalers at home were not helping her. She states her oxygen saturations are usually around 94- 95%. She denies any history of PEs or DVTs. She states she has been diagnosed with asthma and chronic sinusitis. TRAVEL OUTSIDE OF THE [place] IN LAST 30 DAYS: No - Related Data Allergies/Adverse Reactions: Sulfa (Sulfonamide Antibiotics) Allergy (Verified 01/02/18 08:48) Past Medical History - Social History Frequency of alcohol use: Rare Drug Abuse: None Family history: Reviewed & Not Pertinent - Past Medical History Cardiac Medical History: Denies: Hx Coronary Artery Disease, Hx Heart Attack, Hx Hypertension Pulmonary Medical History: Reports: Hx Asthma - Hospitalized January & February 2015 , Hx Pneumonia - 3-4 yrs ago Denies: Hx Bronchitis, Hx COPD, Hx Tuberculosis Neurological Medical History: Denies: Hx Cerebrovascular Accident, Hx Seizures Renal/ Medical History: Denies: Hx Peritoneal Dialysis Musculoskeltal Medical History: Denies Hx Arthritis Past Surgical History: Reports: Hx Breast Surgery - left breast lump removed, Hx Genitourinary Surgery - Bladder tuck, Hx Hysterectomy, Hx Orthopedic Surgery - RIGHT ANKLE ORIF, Hx Tubal Ligation. Denies: Hx Pacemaker - Immunizations Hx Diphtheria, Pertussis, Tetanus Vaccination: Yes Physical Exam - Vital signs Vitals: Temp Pulse Resp BP Pulse Ox 98.6 F 117 H 26 H 134/88 H 91 L 01/29/18 14:09 01/29/18 14:09 01/29/18 14:09 01/29/18 14:09 01/29/18 14:09 Course - Vital Signs Vital signs: Temp Pulse Resp BP Pulse Ox 98.6 F 117 H 26 H 134/88 H 91 L 01/29/18 14:09 01/29/18 14:09 01/29/18 14:09 01/29/18 14:09 01/29/18 14:09
[2018-01-29] MEDS ORDERED: IPRATROPIUM/ALBUTEROL 0.5-2.5 MG/3 ML AMPUL NEB ONE (15:15)
--- NOTE | 2018-01-29 15:15 | ER Document Report ---
ED Respiratory Problem - General Chief Complaint: Shortness Of Breath Stated Complaint: DIFFICULTY BREATHING Time Seen by Provider: 01/29/18 14:36 Mode of Arrival: Ambulatory Information source: Patient Notes: 42 yo female with severe persistant asthma, pt of dr mcdaniel flares when she is not on oral steroids. Uses symbicort, albuterol, antihistamin, not singulair. Wheezing again for a few days. No fever. No chest painl. TRAVEL OUTSIDE OF THE [place] IN LAST 30 DAYS: No - Related Data Allergies/Adverse Reactions: Sulfa (Sulfonamide Antibiotics) Allergy (Verified 01/02/18 08:48) Past Medical History - General Information source: Patient - Social History Smoking Status: Never Smoker Frequency of alcohol use: Rare Drug Abuse: None Lives with: Family Family History: Reviewed & Not Pertinent Patient has suicidal ideation: No Patient has homicidal ideation: No Pulmonary Medical History: Reports: Hx Asthma - Hospitalized January & February 2015 , Hx Pneumonia - 3-4 yrs ago Renal/ Medical History: Denies: Hx Peritoneal Dialysis Past Surgical History: Reports: Hx Breast Surgery - left breast lump removed, Hx Genitourinary Surgery - Bladder tuck, Hx Hysterectomy, Hx Orthopedic Surgery - RIGHT ANKLE ORIF, Hx Tubal Ligation. Denies: Hx Pacemaker - Immunizations Hx Diphtheria, Pertussis, Tetanus Vaccination: Yes Hx Pneumococcal Vaccination: 02/07/15 Review of Systems - Review of Systems Constitutional: No symptoms reported EENT: No symptoms reported Cardiovascular: No symptoms reported Respiratory: See HPI Gastrointestinal: No symptoms reported Genitourinary: No symptoms reported Female Genitourinary: No symptoms reported Musculoskeletal: No symptoms reported Skin: No symptoms reported Hematologic/Lymphatic: No symptoms reported Neurological/Psychological: No symptoms reported Physical Exam - Vital signs Vitals: Temp Pulse Resp BP Pulse Ox 98.6 F 117 H 26 H 134/88 H 91 L 01/29/18 14:09 01/29/18 14:09 01/29/18 14:09 01/29/18 14:09 01/29/18 14:09 Interpretation: Normal - General General appearance: Appears well, Alert - HEENT Head: Normocephalic, Atraumatic Eyes: Normal Conjunctiva: Normal Pupils: PERRL Tympanic membrane: Normal Pharynx: Erythema - mild Neck: Supple. No: Lymphadenopathy - Respiratory Respiratory status: No respiratory distress Chest status: Nontender Breath sounds: Wheezing - expiratory bilaterally Chest palpation: Normal - Cardiovascular Rhythm: Regular Heart sounds: Normal auscultation Murmur: No - Abdominal Inspection: Normal Distension: No distension Bowel sounds: Normal Tenderness: Nontender Organomegaly: No organomegaly - Back Back: Normal, Nontender - Extremities General upper extremity: Normal inspection, Nontender, Normal color, Normal ROM , Normal temperature General lower extremity: Normal inspection, Nontender, Normal color, Normal ROM , Normal temperature, Normal weight bearing. No: Cris's sign - Neurological Neuro grossly intact: Yes Cognition: Normal Orientation: AAOx4 Becca Coma Scale Eye Opening: Spontaneous [place] Coma Scale Verbal: Oriented [place] Coma Scale Motor: Obeys Commands [place] Coma Scale Total: 15 Speech: Normal Motor strength normal: LUE, RUE, LLE, RLE Sensory: Normal - Psychological Associated symptoms: Normal affect, Normal mood - Skin Skin Temperature: Warm Skin Moisture: Dry Skin Color: Normal Course - Re-evaluation Re-evalutation: 01/29/18 19:12 Patient feels a lot better pulse ox is 94-95%, pulse is 117. RR 18 Faint expiratory wheeze bilateral but moving air much better. IV fluid has infused. She has had to grams of magnesium. I will refill her albuterol Nebules and metered-dose inhaler. I explained that she needs to return to the emergency room if her symptoms worsen again tonight and that she needs to see Dr. Mcdaniel this week 01/29/18 19:14 01/29/18 19:16 01/29/18 19:17 01/29/18 19:17 - Vital Signs Vital signs: Temp Pulse Resp BP Pulse Ox 99.4 F 92 24 H 123/74 93 01/29/18 20:11 01/29/18 20:11 01/29/18 20:11 01/29/18 20:11 01/29/18 20:11 - Laboratory Result Diagrams: 01/29/18 17:30 01/29/18 17:20 Laboratory results interpreted by me: 01/29/18 01/29/18 17:20 17:30 WBC 16.0 H RDW 14.2 H Seg Neutrophils % 82.7 H Lymphocytes % 8.7 L Absolute Neutrophils 13.2 H Absolute Eosinophils 0.7 H Chloride 110 H Carbon Dioxide 21 L BUN 6 L Glucose 133 H Discharge - Discharge Clinical Impression: Asthma exacerbation Qualifiers: Asthma severity: severe Asthma persistence: unspecified Qualified Code(s): J45.901 - Unspecified asthma with (acute) exacerbation Condition: Good Disposition: HOME, SELF-CARE Instructions: Asthma ([facility]), Inhaled Bronchodilators ([facility]), Steroid Medication Additional Instructions: Call tomorrow and see Dr. Mcdaniel this week Taper Dosepak of prednisone Refill of albuterol Nebules and ProAir air metered-dose inhaler. I told the patient to return to the emergency room if she gets worse again tonight. Prescriptions: Albuterol Sulfate [Ventolin 0.083% Neb 2.5 mg/3 mL Ampul] 2.5 mg NEB Q3HP PRN # 25 vial PRN Reason: Albuterol Sulfate [Proair HFA Inhalation Aerosol 8.5 gm MDI] 2 puff IH Q3HP PRN #1 [email or web address] PRN Reason: Prednisone [Deltasone 10 mg Tablet] 10 mg PO ASDIR PRN #21 tablet PRN Reason: Referrals: SHAKEEL ESTES MD [Primary Care Provider] - Follow up as needed JEAN PIERRE MCDANIEL MD [ACTIVE STAFF] - Follow up tomorrow
[2018-01-29] MEDS ORDERED: LEVALBUTEROL HCL NEB 1.25 MG/3 ML AMPUL NEB ONE (16:33)
[2018-01-29] MEDS ORDERED: NORMAL SALINE 1000 ML 1,000 ML IV ONE (16:33)
[2018-01-29] MEDS: MAGNESIUM SULFATE/D5W 1 GM/100 ML RTUPB IV SCH ×2 (16:54→18:27)
--- NOTE | 2018-01-29 16:55 | RADIOLOGY REPORT (SQ) ---
EXAM DESCRIPTION: CHEST PA/LAT COMPLETED DATE/TIME: 01/29/2018 4:47 pm REASON FOR STUDY: cough, wheeze COMPARISON: 01/12/2018 EXAM PARAMETERS: NUMBER OF VIEWS: two views TECHNIQUE: Digital Frontal and Lateral radiographic views of the chest acquired. RADIATION DOSE: NA LIMITATIONS: none FINDINGS: LUNGS AND PLEURA: No opacities, masses or pneumothorax. No pleural effusion. MEDIASTINUM AND HILAR STRUCTURES: No masses or contour abnormalities. HEART AND VASCULAR STRUCTURES: Heart normal size. No evidence for failure. BONES: No acute findings. HARDWARE: None in the chest. OTHER: No other significant finding. IMPRESSION: NO SIGNIFICANT RADIOGRAPHIC FINDING IN THE CHEST. TECHNICAL DOCUMENTATION: JOB ID: [id number] [employer]- All Rights Reserved Reading location - IP/workstation name: [email or web address]
[2018-01-29 17:45] LABS: ABSOLUTE BASOPHILS # (AUTO) 0.1 10^3/uL (0.0-0.2); ABSOLUTE EOSINOPHILS # (AUTO) 0.7 10^3/uL (0.0-0.6); ABSOLUTE LYMPHOCYTES (AUTO) 1.4 10^3/uL (0.5-4.7); ABSOLUTE MONOCYTES (AUTO) 0.6 10^3/uL (0.1-1.4); ABSOLUTE NEUT (AUTO) 13.2 10^3/uL (1.7-8.2); BASOPHILS % (AUTO) 0.4 % (0-2); EOSINOPHILS % (AUTO) 4.2 % (0-6); HEMATOCRIT 40.2 % (36.0-47.0); HEMOGLOBIN 12.9 g/dL (12.0-15.5); LYMPHOCYTES % (AUTO) 8.7 % (13-45); MEAN CORPUSCULAR HEMOGLOBIN 28.2 pg (27.0-33.4); MEAN CORPUSCULAR VOLUME 88 fl (80-97); PLATELET COUNT 333 10^3/uL (150-450); RED BLOOD COUNT 4.55 10^6/uL (3.72-5.28); RED CELL DISTRIBUTION WIDTH 14.2 % (11.5-14.0); SEGMENTED NEUTROPHILS % (AUTO) 82.7 % (42-78); TOTAL CELLS COUNTED % (AUTO) 100 %
[2018-01-29 18:00] LABS: ALANINE AMINOTRANSFERASE 37 U/L (9-52); ALBUMIN 3.9 g/dL (3.5-5.0); ALKALINE PHOSPHATASE 104 U/L (38-126); ANION GAP 9 (5-19); ASPARTATE AMINO TRANSFERASE 23 U/L (14-36); BILIRUBIN,DIRECT 0.3 mg/dL (0.0-0.4); BILIRUBIN,TOTAL 0.3 mg/dL (0.2-1.3); BLOOD UREA NITROGEN 6 mg/dL (7-20); CALCIUM 9.3 mg/dL (8.4-10.2); CARBON DIOXIDE 21 mmol/L (22-30); CHLORIDE 110 mmol/L (98-107); GLUCOSE 133 mg/dL (75-110); POTASSIUM 3.8 mmol/L (3.6-5.0); SODIUM 140.4 mmol/L (137-145); TOTAL PROTEIN 7.1 g/dL (6.3-8.2)
[2018-01-29 20:11] VITALS: BP 123/74
== END 2018-01-29 20:12 | disposition home or self-care (01) ==
LOC: ER 13:59
DX: J45.51 Severe persistent asthma with (acute) exacerbation (principal); Z79.51 Long term (current) use of inhaled steroids; Z79.899 Other long term (current) drug therapy; Z88.2 Allergy status to sulfonamides; Z87.01 Personal history of pneumonia (recurrent)
CPT/HCPCS: 94640 ×2; 99285; 96365; 96366; 36415; 85025; 80053; 71046; J3475; J7512; J7030; J3490; J7620

== ENCOUNTER → 2018-01-31 | Outpatient (CLI) | payer BC ==
[2018-01-31 12:42] LABS: HEMATOCRIT 38.8 % (36.0-47.0); HEMOGLOBIN 12.2 g/dL (12.0-15.5); MEAN CORPUSCULAR HEMOGLOBIN 28.1 pg (27.0-33.4); MEAN CORPUSCULAR HGB CONC 31.5 g/dL (32.0-36.0); MEAN CORPUSCULAR VOLUME 89 fl (80-97); PLATELET COUNT 350 10^3/uL (150-450); RED BLOOD COUNT 4.33 10^6/uL (3.72-5.28); WHITE BLOOD COUNT 13.3 10^3/uL (4.0-10.5)
[2018-01-31 13:09] LABS: ABSOLUTE LYMPHOCYTES# (MANUAL) 0.1 10^3/uL (0.5-4.7); ABSOLUTE MONOCYTES # (MANUAL) 0.1 10^3/uL (0.1-1.4); BASOPHILS % (MANUAL) 0 % (0-2); EOSINOPHILS % (MANUAL) 0 % (0-6); LYMPHOCYTES % (MANUAL) 1 % (13-45); MONOCYTES % (MANUAL) 1 % (3-13); SEGMENTED NEUTROPHILS % (MAN) 98 % (42-78); TOTAL CELLS COUNTED 100
[2018-01-31 13:10] LABS: HYPOCHROMASIA SLIGHT; PLATELET COMMENT ADEQUATE; POLYCHROMASIA SLIGHT; TOXIC GRANULATION SLIGHT; TOXIC VACUOLATION PRESENT
[2018-02-05 17:37] LABS: M001-IGE PENICILLIUM CHRYSOGEN <0.10 kU/L (Class 0); M002-IGE CLADOSPORIUM HERBARUM <0.10 kU/L (Class 0); M003-IGE ASPERGILLUS FUMIGATUS <0.10 kU/L (Class 0); M004-IGE MUCOR RACEMOSUS <0.10 kU/L (Class 0); M005-IGE CANDIDA ALBICANS <0.10 kU/L (Class 0); M006-IGE ALTERNARIA ALTERNATA <0.10 kU/L (Class 0); M009-IGE FUSARIUM PROLIFERATUM <0.10 kU/L (Class 0); M012-IGE AUREOBASIDI PULLULANS <0.10 kU/L (Class 0); M013-IGE PHOMA BETAE <0.10 kU/L (Class 0); M014-IGE EPICOCCUM PURPURASCEN <0.10 kU/L (Class 0)
[2018-02-06 07:06] LABS: M010-IGE STEMPHYLIUM HERBARUM <0.10 kU/L (Class 0)
== END ==
LOC: OD 11:42
PROVIDERS: ATTEND Internal Medicine Pulmonary Disease
DX: J45.901 Unspecified asthma with (acute) exacerbation (principal)
CPT/HCPCS: 36415; 82785; 85025; 86003

== ENCOUNTER → 2018-02-19 | Outpatient (CLI) | payer BC, MEDICAID ==
--- NOTE | 2018-02-20 14:03 | WOMENS IMAGING REPORT ---
EXAM DESCRIPTION: 3D SCREENING MAMMO BILAT COMPLETED DATE/TIME: 02/19/2018 4:07 pm REASON FOR STUDY: ROUTINE SCREENING;Z12.31 Z12.31 ENCNTR SCREEN MAMMOGRAM FOR MALIGNANT NEOPLASM OF [place] COMPARISON: None. TECHNIQUE: Standard craniocaudal and mediolateral oblique views of each breast recorded using digita l acquisition and breast tomosynthesis. LIMITATIONS: None. FINDINGS: RIGHT BREAST MASSES: No suspicious masses. CALCIFICATIONS: No new or suspicious calcifications. ARCHITECTURAL DISTORTION: None. DEVELOPING DENSITY: None. ASYMMETRY: None noted. OTHER: No other significant findings. LEFT BREAST MASSES: 1.4 cm lobular smooth mass inferior retroareolar CALCIFICATIONS: No new or suspicious calcifications. ARCHITECTURAL DISTORTION: None. DEVELOPING DENSITY: None. ASYMMETRY: None noted. OTHER: No other significant findings. Read with the assistance of CAD. .[facility] - R2 Cenova Version 1.3 .[facility] Imaging - R2 Cenova Version 1.3 .[facility] - R2 Cenova Version 2.4 .[facility] [place] - R2 Cenova Version 2.4 .[facility] - R2 Culinary Director Version 9.2 IMPRESSION: 1.4 cm lobular smooth mass subareolar left breast. BREAST DENSITY: b. There are scattered areas of fibroglandular density. BIRAD: 0 Incomplete: Needs Additional Imaging Evaluation and/or prior Mammograms for Comparison. RECOMMENDATION: RECOMMENDED FOLLOW-UP: Ultrasound. The patient will be contacted for additional imaging. COMMENT: The patient has been notified of the results by letter per SA requirements. Additional no tification policies are in place for contacting patient with suspicious or incomplete findings. Quality ID #[id number]: The [employer] recommends an annual screening mammogram for women aged 40 years or over. This facility utilizes a reminder system to ensure that all patients receive reminder letters, and/or direct phone calls for appointments. This includes reminders for routine scr eening mammograms, diagnostic mammograms, or other Breast Imaging Interventions when appropriate. Th is patient will be placed in the appropriate reminder system. The [employer] (ACR) has developed recommendations for screening MRI of the breast s in certain patient populations, to be used in conjunction with mammography. Breast MRI surveillanc e may be appropriate for women with more than 20% lifetime risk of developing breast cancer as deter mined by genetic testing, significant family history of the disease, or history of mantle radiation f or Hodgkins Disease. ACR Practice Guidelines 2008. DBT Technology DBT is a type of tomographic mammography. With conventional mammography, overlapping breast tissue ma y make lesions difficult to detect, even with good compression. DBT uses an x-ray tube that rotates a round the breast, taking images at different angles. These images are then combined to create thin sl ices of the breast that the radiologist can view as a 3D reconstruction. The Axela unit can perform full-field digital mammograms (2D imaging); or DBT (3D imaging); or both, in a combination mode that quickly performs both the mammogram and the tomosynthesis scan while the breast is still compressed. PQRS 6045F: Fluoroscopic imaging is not utilized for breast tomosynthesis. TECHNICAL DOCUMENTATION: FINDING NUMBER: (1) ASSESSMENT: (1) JOB ID: [id number] [employer]- All Rights Reserved Reading location - IP/workstation name: [email or web address]
== END ==
LOC: WI 15:02
PROVIDERS: ATTEND Physician Assistant
DX: Z12.31 Encounter for screening mammogram for malignant neoplasm of breast (principal); N63.42 Unspecified lump in left breast, subareolar
CPT/HCPCS: 77063; 77067

== ENCOUNTER → 2018-02-24 | Outpatient (CLI) | payer BC, MEDICAID ==
--- NOTE | 2018-02-24 17:10 | WOMENS IMAGING REPORT ---
EXAM DESCRIPTION: U/S BREAST UNILAT LIMITED COMPLETED DATE/TIME: 02/24/2018 1:30 pm REASON FOR STUDY: UNSPECIFIED LUMP; N63.42 N63.42 UNSPECIFIED LUMP IN LEFT BREAST, SUBAREOLAR COMPARISON: Mammograms/breast tomosynthesis 02/19/2018 TECHNIQUE: Real-time and static grayscale imaging performed of the left breast targeted to the area of mammographic concern. Selected color Doppler images recorded. LIMITATIONS: None. FINDINGS: Left breast retroareolar ultrasound was performed. A well-circumscribed hypoechoic solid nodule with internal color flow is present, dumbbell-shaped. This measures about 14 x 11 x 6 mm in s ize. This is in the 6 o'clock retroareolar location, and may represent a small fibroadenoma. Papill kota is possible. Biopsy is indicated with ultrasound guidance, post biopsy clip placement and follow -up two-view mammogram. IMPRESSION: Small solid nodule in the left breast 6 o'clock retroareolar region. Although this coul d be a benign fibroadenoma, this might also represent a papilloma. Ultrasound-guided core biopsy, po st biopsy clip placement with follow-up two-view mammogram recommended. BIRAD: 4 Suspicious. Biopsy should be considered. RECOMMENDATION: RECOMMENDED FOLLOW-UP: Ultrasound-guided core biopsy, post biopsy clip placement wit h follow-up two-view mammogram recommended COMMENT: The [employer] (ACR) has developed recommendations for screening MRI of the breasts in certain patient populations, to be used in conjunction with mammography. Breast MRI s urveillance may be appropriate for women with more than 20% lifetime risk of developing breast cancer as determined by genetic testing, significant family history of the disease, or history of mantle r adiation for Hodgkins Disease. ACR Practice Guidelines 2008. TECHNICAL DOCUMENTATION: JOB ID: [id number] [employer]- All Rights Reserved Reading location - IP/workstation name: [email or web address]-[email or web address]
== END ==
LOC: WI 13:10
PROVIDERS: ATTEND Physician Assistant
DX: N63.42 Unspecified lump in left breast, subareolar (principal)
CPT/HCPCS: 76642

== ENCOUNTER → 2018-03-06 | Day surgery (SDC) | payer BC, MEDICAID ==
[~2018-03-06] MED LIST: LIDOCAINE 2% INJ (20 MG/ML) 20 ML MDV ONE
--- NOTE | 2018-03-06 16:40 | WOMENS IMAGING REPORT ---
EXAM DESCRIPTION: U/S BREAST BX; LEFT DIG DX MAMMO NO CHG COMPLETED DATE/TIME: 03/06/2018 12:19 pm; 03/06/2018 12:01 pm REASON FOR STUDY: LEFT BREAST MASS; N63.20; LEFT BREAST POST BX CLIP PLACEMENT N63.20 UNSPECIFIED L UMP IN THE LEFT BREAST, UNSPECIFIED QUAD COMPARISON: 02/19/2018. TECHNIQUE: The procedure was discussed with the patient and the patient agreed to proceed. The patient was scanned and the area of interest in the 6 o'clock retroareolar position of the left b reast was localized. This correlates with the area of concern on prior imaging studies. This area wa s targeted for ultrasound-guided core biopsy. After sterile skin prep and 5 mL local lidocaine 1% for skin and deep tissue anesthesia, a 14 gauge c oaxial core biopsy needle was used to obtain several cores of tissue from the lesion. Under ultrasou nd guidance, a ribbon clip was placed in the areas sampled. There were no immediate post-procedure c omplications. MAMMOGRAM: Post-procedure two view mammogram was acquired in the digital mammogram suite. The clip wa s in the expected location. No significant hematoma. Pathology is pending at the time of this report. LIMITATIONS: None. FINDINGS: Ultrasound guided breast biopsy as described above. POST PROCEDURE MAMMOGRAMS FOR MARKER PLACEMENT: Yes IMPRESSION: ULTRASOUND-GUIDED CORE BIOPSY OF THE LEFT BREAST. PATHOLOGY PENDING. COMMENT: Patient medication list reviewed: Yes- Quality ID# [id number]:Eligible professional attests to doc umenting in the medical record they obtained, updated, or reviewed the patient's current medications. TECHNICAL DOCUMENTATION: JOB ID: [id number] [employer]- All Rights Reserved Reading location - IP/workstation name: [facility] [place]
--- NOTE | 2018-03-06 16:40 | WOMENS IMAGING REPORT ---
EXAM DESCRIPTION: U/S BREAST BX; LEFT DIG DX MAMMO NO CHG COMPLETED DATE/TIME: 03/06/2018 12:19 pm; 03/06/2018 12:01 pm REASON FOR STUDY: LEFT BREAST MASS; N63.20; LEFT BREAST POST BX CLIP PLACEMENT N63.20 UNSPECIFIED L UMP IN THE LEFT BREAST, UNSPECIFIED QUAD COMPARISON: 02/19/2018. TECHNIQUE: The procedure was discussed with the patient and the patient agreed to proceed. The patient was scanned and the area of interest in the 6 o'clock retroareolar position of the left b reast was localized. This correlates with the area of concern on prior imaging studies. This area wa s targeted for ultrasound-guided core biopsy. After sterile skin prep and 5 mL local lidocaine 1% for skin and deep tissue anesthesia, a 14 gauge c oaxial core biopsy needle was used to obtain several cores of tissue from the lesion. Under ultrasou nd guidance, a ribbon clip was placed in the areas sampled. There were no immediate post-procedure c omplications. MAMMOGRAM: Post-procedure two view mammogram was acquired in the digital mammogram suite. The clip wa s in the expected location. No significant hematoma. Pathology is pending at the time of this report. LIMITATIONS: None. FINDINGS: Ultrasound guided breast biopsy as described above. POST PROCEDURE MAMMOGRAMS FOR MARKER PLACEMENT: Yes IMPRESSION: ULTRASOUND-GUIDED CORE BIOPSY OF THE LEFT BREAST. PATHOLOGY PENDING. COMMENT: Patient medication list reviewed: Yes- Quality ID# [id number]:Eligible professional attests to doc umenting in the medical record they obtained, updated, or reviewed the patient's current medications. TECHNICAL DOCUMENTATION: JOB ID: [id number] [employer]- All Rights Reserved Reading location - IP/workstation name: [email or web address] [place]
== END ==
LOC: WI 10:23
PROVIDERS: ATTEND Family Medicine
DX: D24.2 Benign neoplasm of left breast (principal); N63.20 Unspecified lump in the left breast, unspecified quadrant
CPT/HCPCS: 88342 ×2; 88305 ×2; 19083; J3490

== ENCOUNTER 2018-03-09 01:40 | Emergency (ER) | payer BC ==
[2018-03-09 02:40] LABS: APPEARANCE,URINE TURBID; BILIRUBIN,URINE NEGATIVE (NEGATIVE); GLUCOSE, URINE NEGATIVE (NEGATIVE); KETONES,URINE NEGATIVE (NEGATIVE); LEUKOCYTE ESTERASE,URINE NEGATIVE (NEGATIVE); NITRITE,URINE NEGATIVE (NEGATIVE); PROTEIN,URINE 100 mg/dL (NEGATIVE); URINE SPECIFIC GRAVITY 1.024; UROBILINOGEN,URINE NEGATIVE mg/dL (<2.0)
[2018-03-09 02:56] LABS: ADD MANUAL MICROSCOPIC YES; COLOR,URINE RED
[2018-03-09 03:00] LABS: AMORPHOUS SEDIMENT,URINE MODERATE /HPF; CALCIUM OXALATE CRYSTALS,URINE FEW /HPF
[2018-03-09 03:05] LABS: AMORPHOUS SEDIMENT,UR 2+; BACTERIA,URINE 3+ /HPF; CALCIUM OXALATE CRYSTALS,UR FEW /HPF
[2018-03-09 03:06] LABS: RBC,URINE TOO NUMEROUS TO CNT /HPF
[2018-03-09] MEDS ORDERED: KETOROLAC TROMETHAMINE INJ/PF 30 MG/1 ML SDV IV ONE (03:29)
[2018-03-09] MEDS ORDERED: ONDANSETRON HCL INJ/PF 4 MG/2 ML SDV IV ONE (03:29)
[2018-03-09] MEDS ORDERED: NORMAL SALINE 1000 ML 1,000 ML IV ONE (03:29)
--- NOTE | 2018-03-09 03:32 | ER Document Report ---
ED GI/ - General Chief Complaint: Flank Pain Stated Complaint: RIGHT FLANK PAIN Time Seen by Provider: 03/09/18 03:23 Mode of Arrival: Ambulatory Information source: Patient Notes: Patient is a 42-year-old female who presents to the emergency department with complaint of sudden onset right flank pain at 11 PM. Patient states that she took 1200 mg of Motrin and try to get some sleep and was unsuccessful. Patient states that the pain is in her right kidney area and radiates around and down to her right groin. Patient denies any history of kidney stones. Patient denies any nausea vomiting or diarrhea. Patient reports that she was feeling perfectly fine before 11 PM. Patient reports past medical history of asthma. Patient reports past surgical history of right ear surgery, right breast surgery and a partial hysterectomy. TRAVEL OUTSIDE OF THE [place] IN LAST 30 DAYS: No - Related Data Allergies/Adverse Reactions: Sulfa (Sulfonamide Antibiotics) Allergy (Verified 01/02/18 08:48) Past Medical History - General Information source: Patient - Social History Smoking Status: Current Some Day Smoker Family History: Reviewed & Not Pertinent - Past Medical History Cardiac Medical History: Denies: Hx Coronary Artery Disease, Hx Heart Attack, Hx Hypertension Pulmonary Medical History: Reports: Hx Asthma - Hospitalized January & February 2015 , Hx Pneumonia - 3-4 yrs ago Denies: Hx Bronchitis, Hx COPD, Hx Tuberculosis Neurological Medical History: Denies: Hx Cerebrovascular Accident, Hx Seizures Renal/ Medical History: Denies: Hx Peritoneal Dialysis Musculoskeltal Medical History: Denies Hx Arthritis Past Surgical History: Reports: Hx Breast Surgery - left breast lump removed, Hx Genitourinary Surgery - Bladder tuck, Hx Hysterectomy, Hx Orthopedic Surgery - RIGHT ANKLE ORIF, Hx Tubal Ligation. Denies: Hx Pacemaker - Immunizations Hx Diphtheria, Pertussis, Tetanus Vaccination: Yes Hx Pneumococcal Vaccination: 02/07/15 Review of Systems - Review of Systems Constitutional: No symptoms reported EENT: No symptoms reported Cardiovascular: No symptoms reported Respiratory: No symptoms reported Gastrointestinal: No symptoms reported Genitourinary: Flank pain - Right-sided flank pain sudden onset 11 PM Female Genitourinary: No symptoms reported Musculoskeletal: No symptoms reported Skin: No symptoms reported Hematologic/Lymphatic: No symptoms reported Neurological/Psychological: No symptoms reported Physical Exam - Vital signs Vitals: Temp Pulse Resp BP Pulse Ox 98.0 F 80 20 134/77 H 95 03/09/18 01:56 03/09/18 01:56 03/09/18 01:56 03/09/18 01:56 03/09/18 01:56 - Notes Notes: PHYSICAL EXAMINATION: GENERAL: Well-appearing, well-nourished and in no acute distress. HEAD: Atraumatic, normocephalic. EYES: Pupils equal round and reactive to light, extraocular movements intact, conjunctiva are normal. ENT: Nares patent, oropharynx clear without exudates. Moist mucous membranes. NECK: Normal range of motion, supple without lymphadenopathy LUNGS: Breath sounds clear to auscultation bilaterally and equal. No wheezes rales or rhonchi. HEART: Regular rate and rhythm without murmurs ABDOMEN: Soft, nontender, nondistended abdomen. No guarding, no rebound. No masses appreciated. Female : Pelvis non-tender, right flank pain with palpation. Musculoskeletal: Normal range of motion, no pitting or edema. No cyanosis. NEUROLOGICAL: Cranial nerves grossly intact. Normal speech, normal gait. Normal sensory, motor exams PSYCH: Normal mood, normal affect. SKIN: Warm, Dry, normal turgor, no rashes or lesions noted. Course - Re-evaluation Re-evalutation: 03/09/18 03:31 Nontoxic patient with acute onset of right flank pain. Patient's exam is concerning for renal stone. Patient has no history of stones and has not had any recent CT scans, will order CT limited to evaluate for renal stone and will provide patient with pain medication. There is 3+ bacteria in the urine however there are no nitrites and no leukocytes. Patient denies any fever or any urinary frequency, urgency or dysuria. WBC elevated likely due to acute pain. 03/09/18 06:31 Patient has a 0.3 cm stone to the right distal ureter. Will discharge patient home with pain medication and urology follow-up to as kidney function is normal. Patient understands she is to return to the emergency department immediately if she develops fever or worsening pain. Patient agrees to call urology Saturday morning for an appointment. - Vital Signs Vital signs: Temp Pulse Resp BP Pulse Ox 98.0 F 80 20 134/77 H 95 03/09/18 01:56 03/09/18 01:56 03/09/18 01:56 03/09/18 01:56 03/09/18 01:56 - Laboratory Result Diagrams: 03/09/18 06:13 03/09/18 06:13 Laboratory results interpreted by me: 03/09/18 03/09/18 01:45 06:13 WBC 18.7 H Hgb 11.9 L RDW 14.6 H Absolute Neutrophils 14.3 H Urine Protein 100 H Urine Blood LARGE H Urine Ascorbic Acid 40 H Discharge - Discharge Clinical Impression: Renal stone, Flank pain Condition: Stable Disposition: HOME, SELF-CARE Instructions: Antinausea Medication ([facility]), Oral Narcotic Medication ([facility]), Pain Medication Injection ([facility]), Toradol Injection ([facility]) Additional Instructions: Kidney Stone You are passing or have passed a kidney stone. These stones are usually due to increased calcium or uric acid concentrations in your urine. Stones within the kidney itself are not painful. The pain occurs as the stone leaves the kidney to pass down the long tube, called the ureter, leading to the bladder. If the stone is small, it will usually pass by itself. Most patients can pass the stone at home. You will usually receive medications for pain, nausea or vomiting, and sometimes a medication to assist in passing the kidney stone. However, if the pain is very severe or if vomiting prevents you from taking oral pain medications, you may need to return for further treatment. Drink three or four quarts of fluids per day. You will be given pain medication (if needed) and urine strainers. Strain all your urine to see if the stone passes. If your doctor has asked you to bring the stone in for analysis, return with the stone once it has passed. Return if pain or vomiting become severe, if you develop a high fever, if you are unable to pass your urine, or if other unusual symptoms occur Please follow-up with urology. Call Saturday and let them know that you were diagnosed with a 0.3 cm stone with an elevated wbc. You are being prescribed an antibiotic due to your elevated white blood count and bacteria in your urine. It is very important if you develop fever the return to the emergency department immediately. [facility] [address] [place] [id number] Prescriptions: Cephalexin Monohydrate [Keflex 500 mg Capsule] 500 mg PO Q6H 5 Days #20 capsule Morphine Sulfate [Morphine Ir 15 Mg Tablet] 15 mg PO Q4H PRN #16 tablet PRN Reason: Ondansetron [Zofran Odt 4 mg Tablet] 1 - 2 tab PO Q4H PRN #20 tab.rapdis PRN Reason: For Nausea/Vomiting Referrals: SHAKEEL ESTES MD [Primary Care Provider] - Follow up as needed
[2018-03-09] MEDS ORDERED: MORPHINE SULFATE 10 MG/ML INJ IV ONE (04:39)
--- NOTE | 2018-03-09 05:13 | RADIOLOGY REPORT (SQ) ---
EXAM DESCRIPTION: CT LTD RENAL STONE PROTOCOL ON CLINICAL HISTORY: 42 years Female, right flank pain evaluate for renal stone COMPARISON: None. TECHNIQUE: No contrast. Coronal and sagittal reformat. This exam was performed according to our departmental dose-optimization program, which includes automated exposure control, adjustment of the mA and/or kV according to patient size and/or use of iterative reconstruction technique. FINDINGS: 0.3 cm likely right distal ureteral stone within 2 cm of the ureterovesicular junction, minimal right hydronephrosis, no hydroureter and small right perinephric fat stranding. Punctate bilateral nephrolithiasis. Normal appendix. Unenhanced lower thorax, abdominopelvic structures, and musculoskeleton appear otherwise grossly unremarkable. Impression: 0.3 cm right distal ureteral stone with low-grade obstruction.
[2018-03-09] MEDS ORDERED: HYDROMORPHONE HCL INJ/PF 2 MG/ML AMPULE IV ONE (05:26)
[2018-03-09 06:26] LABS: ABSOLUTE BASOPHILS # (AUTO) 0.1 10^3/uL (0.0-0.2); ABSOLUTE EOSINOPHILS # (AUTO) 0.4 10^3/uL (0.0-0.6); ABSOLUTE LYMPHOCYTES (AUTO) 2.6 10^3/uL (0.5-4.7); ABSOLUTE MONOCYTES (AUTO) 1.3 10^3/uL (0.1-1.4); ABSOLUTE NEUT (AUTO) 14.3 10^3/uL (1.7-8.2); BASOPHILS % (AUTO) 0.6 % (0-2); HEMATOCRIT 37.1 % (36.0-47.0); HEMOGLOBIN 11.9 g/dL (12.0-15.5); MEAN CORPUSCULAR HEMOGLOBIN 29.1 pg (27.0-33.4); MEAN CORPUSCULAR HGB CONC 32.2 g/dL (32.0-36.0); MEAN CORPUSCULAR VOLUME 90 fl (80-97); MONOCYTES % (AUTO) 6.9 % (3-13); PLATELET COUNT 280 10^3/uL (150-450); RED BLOOD COUNT 4.11 10^6/uL (3.72-5.28); RED CELL DISTRIBUTION WIDTH 14.6 % (11.5-14.0); SEGMENTED NEUTROPHILS % (AUTO) 76.5 % (42-78); TOTAL CELLS COUNTED % (AUTO) 100 %; WHITE BLOOD COUNT 18.7 10^3/uL (4.0-10.5)
[2018-03-09 06:41] LABS: ALANINE AMINOTRANSFERASE 30 U/L (9-52); ALBUMIN 3.7 g/dL (3.5-5.0); ALKALINE PHOSPHATASE 87 U/L (38-126); ANION GAP 7 (5-19); ASPARTATE AMINO TRANSFERASE 21 U/L (14-36); BILIRUBIN,DIRECT 0.2 mg/dL (0.0-0.4); BILIRUBIN,TOTAL 0.5 mg/dL (0.2-1.3); BLOOD UREA NITROGEN 14 mg/dL (7-20); CALCIUM 8.7 mg/dL (8.4-10.2); CARBON DIOXIDE 25 mmol/L (22-30); CHLORIDE 111 mmol/L (98-107); GLUCOSE 105 mg/dL (75-110); POTASSIUM 3.8 mmol/L (3.6-5.0); SODIUM 143.2 mmol/L (137-145); TOTAL PROTEIN 6.5 g/dL (6.3-8.2)
[2018-03-09] MEDS ORDERED: HYDROCODONE/ACETAMINOPHEN 5-325 MG (6 TAB/ER DISP) PO PRN (06:54)
[2018-03-09 07:26] VITALS: BP 115/70
== END 2018-03-09 07:26 | disposition home or self-care (01) ==
LOC: ER 01:40
DX: N20.0 Calculus of kidney (principal); R10.9 Unspecified abdominal pain; R10.31 Right lower quadrant pain; F17.200 Nicotine dependence, unspecified, uncomplicated; J45.909 Unspecified asthma, uncomplicated
CPT/HCPCS: 99284; 96361; 96374; 96375; 36415; 87086; 85025; 80053; 81001; 76380; J1885; J2270; J1170; J2405; J7030

== ENCOUNTER 2019-02-09 08:26 | Inpatient (IN) | payer SELFPAY ==
[2019-02-09] MEDS ORDERED: IPRATROPIUM/ALBUTEROL 0.5-2.5 MG/3 ML AMPUL NEB ONE ×2 (08:54→13:05)
[2019-02-09] MEDS ORDERED: METHYLPREDNISOLONE INJ 125 MG/2 ML SDV IV ONE (08:54)
[2019-02-09] MEDS ORDERED: NORMAL SALINE 1000 ML 1,000 ML IV ONE (08:56)
--- NOTE | 2019-02-09 08:58 | ER Document Report ---
ED Respiratory Problem - General Chief Complaint: Shortness Of Breath Stated Complaint: WHEEZING/DIFFICULTY BREATHING Time Seen by Provider: 02/09/19 08:42 Mode of Arrival: Ambulatory Information source: Patient Notes: Patient presents with a 3-day history of cough and wheezing. Patient states that the cough has been productive. Patient denies any fever. Patient has a history of asthma that has been difficult to control. Patient states she has been taking prednisone 20 mg daily to help with her symptoms for over the past year. Patient denies any recent changes in her medications. TRAVEL OUTSIDE OF THE [place] IN LAST 30 DAYS: No - HPI Patient complains to provider of: Asthma, Cough Onset: Other - 3 days Duration: Continuous Quality of pain: Other - Tightness Pain Level: 1 Context: Hx asthma. denies: Hx CHF, Hx COPD, Recent cardiac event, Recent long distance trvl, Recent immobilization Chest pain/discomfort: Tightness Cough: Productive Sputum color: Yellow At home treatment: Bronchodilators Associated symptoms: Allergy/hay fever, Congestion, Cough, Short of breath, Wheezing. 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 Lives with: Family Family History: Reviewed & Not Pertinent Patient has suicidal ideation: No Patient has homicidal ideation: No - Past Medical History Cardiac Medical History: Denies: Hx Coronary Artery Disease, Hx Heart Attack, Hx Hypertension Pulmonary Medical History: Reports: Hx Asthma - Hospitalized January & February 2015, Hx Pneumonia - 3-4 yrs ago Denies: Hx Intubation Renal/ Medical History: Denies: Hx Peritoneal Dialysis Musculoskeletal Medical History: Denies Hx Arthritis Past Surgical History: Reports: Hx Breast Surgery - left breast lump removed, Hx Genitourinary Surgery - Bladder tuck, Hx Hysterectomy, Hx Orthopedic Surgery - RIGHT ANKLE ORIF, Hx Tubal Ligation - Immunizations Hx Diphtheria, Pertussis, Tetanus Vaccination: Yes Hx Pneumococcal Vaccination: 02/07/15 Review of Systems - Review of Systems Constitutional: No symptoms reported. denies: Fever, Recent illness EENT: Nose congestion, Nose discharge. denies: Throat pain Cardiovascular: No symptoms reported Respiratory: Cough, Wheezing Gastrointestinal: No symptoms reported. denies: Abdominal pain, Vomiting Genitourinary: No symptoms reported Female Genitourinary: No symptoms reported Musculoskeletal: No symptoms reported. denies: Back pain Skin: No symptoms reported Hematologic/Lymphatic: No symptoms reported Neurological/Psychological: No symptoms reported Physical Exam - Vital signs Vitals: Temp Pulse Resp BP Pulse Ox 98.2 F 106 H 20 134/83 H 93 02/09/19 08:33 02/09/19 08:33 02/09/19 08:33 02/09/19 08:33 02/09/19 08:33 - General General appearance: Alert In distress: Mild - HEENT Head: Normocephalic, Atraumatic Eyes: Normal Conjunctiva: Normal Ears: Normal Nasal: Clear rhinorrhea Mouth/Lips: Normal Mucous membranes: Normal Pharynx: Normal. No: Potential airway comprom. Neck: Normal, Supple. No: Lymphadenopathy, Meningismus - Respiratory Respiratory status: Tachypnea Chest status: Nontender Breath sounds: Nonproductive cough, Wheezing Chest palpation: Normal - Cardiovascular Rhythm: Tachycardia Heart sounds: S1 appreciated, S2 appreciated Murmur: No - Back Back: Normal, Nontender - Extremities General upper extremity: Normal inspection, Normal ROM General lower extremity: Normal inspection, Normal ROM - Neurological Neuro grossly intact: Yes Cognition: Normal [place] Coma Scale Eye Opening: Spontaneous [place] Coma Scale Verbal: Oriented [place] Coma Scale Motor: Obeys Commands [place] Coma Scale Total: 15 - Psychological Associated symptoms: Normal affect, Normal mood - Skin Skin Temperature: Warm Skin Moisture: Dry Skin Color: Normal Course - Re-evaluation Re-evalutation: 02/09/19 10:32 Patient continues with diffuse bilateral wheezing. Heart rate continues tachycardic with oxygen saturation at 93% on room air. IV magnesium ordered. 02/09/19 14:10 Called and spoke with Dr. Castillo regarding need for admission. Recommends consultation with Dr. Mcdaniel. Called and spoke with Dr. Mcdaniel who states that given patient's presentation would recommend admission. 02/09/19 14:22 Patient standing at bedside, heart rate 127 with oxygen saturation 89-92%. Patient placed on oxygen 1 L. Patient does continue with lateral wheezing. Call placed for consultation with Dr. Castillo. 02/09/19 14:[address] Castillo 02/09/19 15:[address] Castillo who agrees to accept patient to a telemetry bed. - Vital Signs Vital signs: Temp Pulse Resp BP Pulse Ox 98.8 F 114 H 19 122/70 98 02/09/19 18:08 02/09/19 18:08 02/09/19 18:08 02/09/19 18:08 02/09/19 18:08 - Laboratory Result Diagrams: 02/09/19 09:45 02/09/19 09:45 Laboratory results interpreted by me: 02/09/19 02/09/19 02/09/19 09:16 09:45 09:45 WBC 15.0 H RDW 14.3 H Seg Neutrophils % 90.2 H Lymphocytes % 5.3 L Monocytes % 2.3 L Absolute Neutrophils 13.5 H Carbonic Acid 1.00 L ABG pCO2 33.1 L ABG pO2 62.3 L ABG O2 Saturation 92.7 L Chloride 108 H Glucose 150 H Labs- Entire Visit 02/09/19 02/09/19 02/09/19 09:16 09:45 09:45 WBC 15.0 H RBC 4.46 Hgb 13.1 Hct 39.6 MCV 89 MCH 29.3 MCHC 33.0 RDW 14.3 H Plt Count 392 Seg Neutrophils % 90.2 H Lymphocytes % 5.3 L Monocytes % 2.3 L Eosinophils % 1.8 Basophils % 0.4 Absolute Neutrophils 13.5 H Absolute Lymphocytes 0.8 Absolute Monocytes 0.4 Absolute Eosinophils 0.3 Absolute Basophils 0.1 Carbonic Acid 1.00 L HCO3/H2CO3 Ratio 21:1 ABG pH 7.43 ABG pCO2 33.1 L ABG pO2 62.3 L ABG HCO3 21.3 ABG Total CO2 22.3 ABG O2 Saturation 92.7 L ABG Base Excess -2.3 FiO2 ROOM AIR Sodium 138.7 Potassium 4.2 Chloride 108 H Carbon Dioxide 22 Anion Gap 9 BUN 8 Creatinine 0.73 Est GFR ( Amer) > 60 Est GFR (Non-Af Amer) > 60 Glucose 150 H Calcium 9.6 Magnesium 2.2 Total Bilirubin 0.6 Direct Bilirubin 0.2 Neonat Total Bilirubin Not Reportable Neonat Direct Bilirubin Not Reportable Neonat Indirect Bili Not Reportable AST 15 ALT 20 Alkaline Phosphatase 99 Total Protein 7.2 Albumin 3.9 - Diagnostic Test Radiology reviewed: Reports reviewed Discharge - Discharge Clinical Impression: Asthma exacerbation Qualifiers: Asthma severity: unspecified severity Asthma persistence: persistent Qualified Code(s): J45.901 - Unspecified asthma with (acute) exacerbation Leukocytosis Qualifiers: Leukocytosis type: unspecified Qualified Code(s): D72.829 - Elevated white blood cell count, unspecified Condition: Fair Disposition: ADMITTED OBSERVATION Admitting Provider: Castillo Unit Admitted: Telemetry
[2019-02-09] MEDS: ALBUTEROL SULFATE 0.083% NEB 2.5 MG/3 ML AMPUL NEB SCH ×2 (09:26→09:38)
[2019-02-09 09:38] LABS: ARTERIAL BLOOD BASE EXCESS -2.3 mmol/L; ARTERIAL BLOOD FIO2 ROOM AIR; ARTERIAL BLOOD HCO3 21.3 mmol/L (20-24); ARTERIAL BLOOD O2 SATURATION 92.7 % (94-98); ARTERIAL BLOOD PCO2 33.1 mmHg (35-45); ARTERIAL BLOOD PH 7.43 (7.35-7.45); ARTERIAL BLOOD PO2 62.3 mmHg (80-100); ARTERIAL BLOOD TOTAL CO2 22.3 mmol/L (21-25)
[2019-02-09 10:01] LABS: ABSOLUTE BASOPHILS # (AUTO) 0.1 10^3/uL (0.0-0.2); ABSOLUTE EOSINOPHILS # (AUTO) 0.3 10^3/uL (0.0-0.6); ABSOLUTE LYMPHOCYTES (AUTO) 0.8 10^3/uL (0.5-4.7); ABSOLUTE MONOCYTES (AUTO) 0.4 10^3/uL (0.1-1.4); ABSOLUTE NEUT (AUTO) 13.5 10^3/uL (1.7-8.2); BASOPHILS % (AUTO) 0.4 % (0-2); EOSINOPHILS % (AUTO) 1.8 % (0-6); HEMATOCRIT 39.6 % (36.0-47.0); HEMOGLOBIN 13.1 g/dL (12.0-15.5); LYMPHOCYTES % (AUTO) 5.3 % (13-45); MEAN CORPUSCULAR HEMOGLOBIN 29.3 pg (27.0-33.4); MEAN CORPUSCULAR VOLUME 89 fl (80-97); MONOCYTES % (AUTO) 2.3 % (3-13); PLATELET COUNT 392 10^3/uL (150-450); RED BLOOD COUNT 4.46 10^6/uL (3.72-5.28); RED CELL DISTRIBUTION WIDTH 14.3 % (11.5-14.0); SEGMENTED NEUTROPHILS % (AUTO) 90.2 % (42-78); TOTAL CELLS COUNTED % (AUTO) 100 %
[2019-02-09 10:25] LABS: ALANINE AMINOTRANSFERASE 20 U/L (9-52); ALBUMIN 3.9 g/dL (3.5-5.0); ALKALINE PHOSPHATASE 99 U/L (38-126); ANION GAP 9 (5-19); ASPARTATE AMINO TRANSFERASE 15 U/L (14-36); BILIRUBIN,DIRECT 0.2 mg/dL (0.0-0.4); BILIRUBIN,TOTAL 0.6 mg/dL (0.2-1.3); BLOOD UREA NITROGEN 8 mg/dL (7-20); CALCIUM 9.6 mg/dL (8.4-10.2); CARBON DIOXIDE 22 mmol/L (22-30); CHLORIDE 108 mmol/L (98-107); GLUCOSE 150 mg/dL (75-110); POTASSIUM 4.2 mmol/L (3.6-5.0); SODIUM 138.7 mmol/L (137-145); TOTAL PROTEIN 7.2 g/dL (6.3-8.2)
[2019-02-09] MEDS ORDERED: MAGNESIUM SULFATE/D5W 1 GM/100 ML RTUPB IV ONE (10:29)
--- NOTE | 2019-02-09 11:14 | RADIOLOGY REPORT (SQ) ---
EXAM DESCRIPTION: CHEST 2 VIEWS COMPLETED DATE/TIME: 02/09/2019 11:00 am REASON FOR STUDY: sob,cough COMPARISON: 01/29/2018 EXAM PARAMETERS: NUMBER OF VIEWS: two views TECHNIQUE: Digital Frontal and Lateral radiographic views of the chest acquired. RADIATION DOSE: NA LIMITATIONS: none FINDINGS: LUNGS AND PLEURA: No opacities, masses or pneumothorax. No pleural effusion. MEDIASTINUM AND HILAR STRUCTURES: No masses or contour abnormalities. HEART AND VASCULAR STRUCTURES: Heart normal size. No evidence for failure. BONES: No acute findings. HARDWARE: None in the chest. OTHER: No other significant finding. IMPRESSION: NO ACUTE RADIOGRAPHIC FINDING IN THE CHEST. TECHNICAL DOCUMENTATION: JOB ID: [id number] [employer]- All Rights Reserved Reading location - IP/workstation name: [email or web address]
[2019-02-09] MEDS ORDERED: ALBUTEROL SULFATE 0.083% NEB 2.5 MG/3 ML AMPUL NEB ONE (14:56)
[2019-02-09] MEDS ORDERED: ACETAMINOPHEN 325 MG TABLET PO PRN (15:24)
[2019-02-09] MEDS ORDERED: ALBUTEROL SULFATE 0.083% NEB 2.5 MG/3 ML AMPUL NEB PRN (15:32)
[2019-02-09] MEDS ORDERED: IPRATROPIUM/ALBUTEROL 0.5-2.5 MG/3 ML AMPUL NEB SCH (16:00)
--- NOTE | 2019-02-09 16:47 | PDOC H&P ---
History of Present Illness Admission Date/PCP: 02/09/19 15:07 SHAKEEL ESTES MD Patient complains of: Cough and wheezing History of Present Illness: ALEK RENNER is a 43 year old female This is a 43-year-old female with a significant history of the asthma with the multiple hospital admissions for the acute exacerbations currently on a steroid dependence prednisone 20 mg p[address] daily see Dr. Mcdaniel's pretty much as outpatient seen couple of weeks back seen by myself in the last hospital admission in June did not following office came to the emergency department with a complaining of cough congestions and increasing more productivity of the sputum Patient's denied any fever or chills In the emergency department patient oxygen saturation is 90-93%'s and dropped to up to 89%'s patients received a several respiratory treatments Solu-Medrol and IV magnesium's Patient's chest x-ray was clear At this point discussed with Dr. Mcdaniel's patient's pulmonary and suggest a hospital admission give IV Solu-Medrol and respiratory treatments did not think patient need a CT of the chest today When I saw the patient in the emergency department as usual still quite a bit wheezing Patient is denied any chest pain Patient's denied recently any travel or contact with any sick persons At this point decided to admit the patient's to continues to monitor continues to pulse ox and oxygen supplements Past Medical History Cardiac Medical History: Denies: Coronary Artery Disease, Myocardial Infarction, Hypertension Pulmonary Medical History: Reports: Asthma - Hospitalized January & February 2015, Pneumonia - 3-4 yrs ago Denies: Bronchitis, Chronic Obstructive Pulmonary Disease (COPD), Intubation, Tuberculosis Neurological Medical History: Denies: Seizures Musculoskeltal Medical History: Denies: Arthritis Hematology: Reports: Anemia - Currently Past Surgical History Past Surgical History: Reports: Hysterectomy, Orthopedic Surgery - RIGHT ANKLE ORIF, Tubal Ligation Denies: Pacemaker Social History Lives with: Family Smoking Status: Never Smoker Frequency of Alcohol Use: None Hx Recreational Drug Use: No Drugs: None Hx Prescription Drug Abuse: No Family History Family History: Reviewed & Not Pertinent Parental Family History Reviewed: Yes Children Family History Reviewed: Yes Sibling(s) Family History Reviewed.: Yes Medication/Allergy Home Medications: Albuterol Sulfate [Ventolin 0.083% Neb 2.5 mg/3 ml Ampul] 1 vial NEB Q4HP PRN 02/09/19 Prednisone [Deltasone 20 mg Tablet] 20 mg PO DAILY 02/09/19 Tiotropium [place] [Spiriva Handihaler 5 Cap/Kit (18 Mcg/Cap)] 1 cap IH Q12 02/09/19 Allergies/Adverse Reactions: Sulfa (Sulfonamide Antibiotics) Allergy (Verified 02/09/19 08:27) Review of Systems Constitutional: ABSENT: chills, fever(s), headache(s), weight gain, weight loss Eyes: ABSENT: visual disturbances Ears: ABSENT: hearing changes Cardiovascular: PRESENT: dyspnea on exertion. ABSENT: chest pain, edema, orthropnea, palpitations Respiratory: PRESENT: cough, dyspnea, sputum. ABSENT: hemoptysis Gastrointestinal: ABSENT: abdominal pain, constipation, diarrhea, hematemesis, hematochezia, nausea, vomiting Genitourinary: ABSENT: dysuria, hematuria Musculoskeletal: ABSENT: joint swelling Integumentary: ABSENT: rash, wounds Neurological: ABSENT: abnormal gait, abnormal speech, confusion, dizziness, focal weakness, syncope Psychiatric: ABSENT: anxiety, depression, homidical ideation, suicidal ideation Endocrine: ABSENT: cold intolerance, heat intolerance, menstrual abnormalities, polydipsia, polyuria Hematologic/Lymphatic: ABSENT: easy bleeding, easy bruising, lymphadenopathy Physical Exam Vital Signs: Temp Pulse Resp BP Pulse Ox 98.2 F 106 H 19 132/78 H 95 02/09/19 08:33 02/09/19 08:33 02/09/19 12:00 02/09/19 10:01 02/09/19 12:00 Intake & Output 02/08/19 02/09/19 02/10/19 06:59 06:59 06:59 Intake Total 1100 Balance 1100 Weight 111.4 kg General appearance: PRESENT: no acute distress, well-developed, well-nourished Head exam: PRESENT: atraumatic, normocephalic Eye exam: PRESENT: conjunctiva pink, EOMI, PERRLA. ABSENT: scleral icterus Ear exam: PRESENT: normal external ear exam Mouth exam: PRESENT: moist, tongue midline Neck exam: PRESENT: full ROM. ABSENT: carotid bruit, JVD, lymphadenopathy, thyromegaly Respiratory exam: PRESENT: decreased breath sounds, unlabored, wheezes Cardiovascular exam: PRESENT: RRR, tachycardia. ABSENT: diastolic murmur, rubs, systolic murmur Vascular exam: PRESENT: normal capillary refill GI/Abdominal exam: PRESENT: normal bowel sounds, soft. ABSENT: distended, guarding, mass, organolmegaly, rebound, tenderness Rectal exam: PRESENT: deferred Extremities exam: ABSENT: pedal edema Neurological exam: PRESENT: alert, awake, oriented to person, oriented to place, oriented to time, oriented to situation, CN II-XII grossly intact. ABSENT: motor sensory deficit Psychiatric exam: PRESENT: appropriate affect, normal mood. ABSENT: homicidal ideation, suicidal ideation Skin exam: PRESENT: dry, intact, warm. ABSENT: cyanosis, rash Results Laboratory Results: 02/09/19 09:45 02/09/19 09:45 02/09/19 02/09/19 02/09/19 09:16 09:45 09:45 WBC 15.0 H RBC 4.46 Hgb 13.1 Hct 39.6 MCV 89 MCH 29.3 MCHC 33.0 RDW 14.3 H Plt Count 392 Seg Neutrophils % 90.2 H Lymphocytes % 5.3 L Monocytes % 2.3 L Eosinophils % 1.8 Basophils % 0.4 Absolute Neutrophils 13.5 H Absolute Lymphocytes 0.8 Absolute Monocytes 0.4 Absolute Eosinophils 0.3 Absolute Basophils 0.1 Carbonic Acid 1.00 L HCO3/H2CO3 Ratio 21:1 ABG pH 7.43 ABG pCO2 33.1 L ABG pO2 62.3 L ABG HCO3 21.3 ABG O2 Saturation 92.7 L ABG Base Excess -2.3 FiO2 ROOM AIR Sodium 138.7 Potassium 4.2 Chloride 108 H Carbon Dioxide 22 Anion Gap 9 BUN 8 Creatinine 0.73 Est GFR ( Amer) > 60 Est GFR (Non-Af Amer) > 60 Glucose 150 H Calcium 9.6 Magnesium 2.2 Total Bilirubin 0.6 AST 15 ALT 20 Alkaline Phosphatase 99 Total Protein 7.2 Albumin 3.9 Impressions: Chest X-Ray 02/09/19 08:55 IMPRESSION: NO ACUTE RADIOGRAPHIC FINDING IN THE CHEST. Assessment & Plan - Diagnosis (1) Asthma exacerbation Qualifiers: Asthma severity: unspecified severity Asthma persistence: persistent Qualified Code(s): J45.901 - Unspecified asthma with (acute) exacerbation Is this a current diagnosis for this admission?: Yes Plan: We will start the patient on IV Solu-Medrol and respiratory treatment continuous pulse ox monitor Discussed with the Dr. Mcdaniel's consult with him following the hospitals (2) Cough Is this a current diagnosis for this admission?: Yes Plan: Will get the sputum culture Cover with antibiotic (3) Leukocytosis Qualifiers: Leukocytosis type: unspecified Qualified Code(s): D72.829 - Elevated white blood cell count, unspecified Is this a current diagnosis for this admission?: Yes Plan: Most likely related to this is chronic steroid Will get the sputum culture blood culture Get the lactic acid Cover the antibiotics until the cultures back - Time Time Spent: 30 to 50 Minutes Medications reviewed and adjusted accordingly: Yes Anticipated discharge: Home Within: Other - Inpatient Certification Based on my medical assessment, after consideration of the patient's comorbidities, presenting symptoms, or acuity I expect that the services needed warrant INPATIENT care.: Yes I certify that my determination is in accordance with my understanding of Medicare's requirements for reasonable and necessary INPATIENT services [42 CFR 412.3e].: Yes Medical Necessity: Significant Comorbidiites Make Outpatient Treatment Too Risky, Need Close Monitoring Due to Risk of Patient Decompensation, Need For IV Fluids, Need for IV Antibiotics Post Hospital Care: D/C [employer] Presser Documentation - Plan Summary Plan Summary: Admit the patient in a telemetry bed See MD orders
[2019-02-09] MEDS: NORMAL SALINE 1000 ML 1,000 ML IV PRN (18:08)
[2019-02-09] MEDS: CEFEPIME 2 GM/D5W RTU 2 GM/50 ML RTUPB IV SCH (18:09)
[2019-02-09] MEDS: LEVALBUTEROL HCL NEB 1.25 MG/3 ML AMPUL NEB SCH (19:57)
[2019-02-09] MEDS: FAMOTIDINE 20 MG TABLET PO SCH (21:25)
[2019-02-09] MEDS: METHYLPREDNISOLONE INJ 125 MG/2 ML SDV IV SCH (21:25)
[2019-02-09] MEDS: AZITHROMYCIN 500 MG in DEXTROSE 5%-WATER 250 ML IV SCH (21:29)
[2019-02-10] MEDS: LEVALBUTEROL HCL NEB 1.25 MG/3 ML AMPUL NEB SCH ×6 (00:09→20:58)
[2019-02-10] MEDS ORDERED: CEFEPIME 2 GM/D5W RTU 2 GM/50 ML RTUPB IV ONE (05:21)
[2019-02-10] MEDS: METHYLPREDNISOLONE INJ 125 MG/2 ML SDV IV SCH ×3 (05:29→22:00)
[2019-02-10] MEDS: CEFEPIME 2 GM/D5W RTU 2 GM/50 ML RTUPB IV SCH ×2 (05:31→17:40)
[2019-02-10 05:49] LABS: HEMATOCRIT 39.3 % (36.0-47.0); HEMOGLOBIN 12.7 g/dL (12.0-15.5); MEAN CORPUSCULAR HEMOGLOBIN 28.3 pg (27.0-33.4); MEAN CORPUSCULAR HGB CONC 32.2 g/dL (32.0-36.0); MEAN CORPUSCULAR VOLUME 88 fl (80-97); PLATELET COUNT 350 10^3/uL (150-450); RED BLOOD COUNT 4.47 10^6/uL (3.72-5.28); RED CELL DISTRIBUTION WIDTH 14.2 % (11.5-14.0)
[2019-02-10 06:09] LABS: ANION GAP 10 (5-19); BLOOD UREA NITROGEN 12 mg/dL (7-20); CALCIUM 9.8 mg/dL (8.4-10.2); CARBON DIOXIDE 18 mmol/L (22-30); CHLORIDE 111 mmol/L (98-107); GLUCOSE 175 mg/dL (75-110); POTASSIUM 4.6 mmol/L (3.6-5.0); SODIUM 138.9 mmol/L (137-145)
[2019-02-10 06:25] LABS: ABSOLUTE LYMPHOCYTES# (MANUAL) 1.5 10^3/uL (0.5-4.7); ABSOLUTE NEUTROPHILS# (MANUAL) 17.5 10^3/uL (1.7-8.2); BASOPHILS % (MANUAL) 0 % (0-2); EOSINOPHILS % (MANUAL) 0 % (0-6); LYMPHOCYTES % (MANUAL) 8 % (13-45); MONOCYTES % (MANUAL) 0 % (3-13); SEGMENTED NEUTROPHILS % (MAN) 92 % (42-78); TOTAL CELLS COUNTED 100
[2019-02-10 06:26] LABS: ARTERIAL BLOOD BASE EXCESS -3.5 mmol/L; ARTERIAL BLOOD H2CO3 0.93 mmol/L (1.05-1.35); ARTERIAL BLOOD HCO3 19.8 mmol/L (20-24); ARTERIAL BLOOD O2 SATURATION 92.7 % (94-98); ARTERIAL BLOOD PCO2 30.8 mmHg (35-45); ARTERIAL BLOOD PH 7.43 (7.35-7.45); ARTERIAL BLOOD PO2 62.2 mmHg (80-100); ARTERIAL BLOOD TOTAL CO2 20.7 mmol/L (21-25)
[2019-02-10 06:27] LABS: ANISOCYTOSIS SLIGHT; BURR CELLS SLIGHT; OVALOCYTES SLIGHT; POIKILOCYTOSIS 1+; TOXIC GRANULATION 1+
[2019-02-10 06:27] LABS: ARTERIAL BLOOD FIO2 28%
[2019-02-10 06:28] LABS: PLATELET COMMENT ADEQUATE; SCHISTOCYTES SLIGHT
[2019-02-10] MEDS: NORMAL SALINE 1000 ML 1,000 ML IV PRN (07:59)
[2019-02-10] MEDS: ENOXAPARIN SODIUM INJ 40 MG/0.4 ML DISP.SYRIN SUBCUT SCH (09:57)
[2019-02-10] MEDS: FAMOTIDINE 20 MG TABLET PO SCH ×2 (09:57→23:19)
--- NOTE | 2019-02-10 11:23 | PDOC PROGRESS REPORT ---
Subjective Progress Note for:: 02/10/19 Subjective:: Patient is feeling much better Denied any chest pain to than any shortness of the breath Patient heart rate is slightly elevated which is very common for this patient who evaluations did in the past most likely related to the respiratory treatments Patient's lactic acid was elevated currently on IV antibiotic but patient is currently denied any fever no chills Reason For Visit: ASTHMA WITH ACUTE EXACERBATIONS Physical Exam Vital Signs: Temp Pulse Resp BP Pulse Ox 97.5 F 119 H 16 123/72 96 02/10/19 00:00 02/10/19 07:55 02/10/19 07:55 02/10/19 00:00 02/10/19 07:55 Pulse Oximeter Continuous Start: 02/09/19 22:21 Freq: Status: Active Protocol: Document 02/10/19 07:55 [facility] [place] [facility] [place]Rec: 02/10/19 08:09 [facility] [place] [facility] [place] [id number][place] Pulse Oximetry Assessment Oxygen Saturation (92-100) 96 Oxygen Flow Rate (L/min) 1.5 Oxygen Delivery Method Nasal Cannula Fraction of Inspired Oxygen (FIO2) 26 Equipment Usage Equipment in Use Continuous SpO2 Machine # N [id number] Intake & Output 02/09/19 02/10/19 02/11/19 06:59 06:59 06:59 Intake Total 1810 970 Balance 1810 970 Weight 115.2 kg General appearance: PRESENT: no acute distress, well-developed, well-nourished Head exam: PRESENT: atraumatic, normocephalic Eye exam: PRESENT: conjunctiva pink, EOMI, PERRLA. ABSENT: scleral icterus Ear exam: PRESENT: normal external ear exam Mouth exam: PRESENT: moist, tongue midline Neck exam: PRESENT: full ROM. ABSENT: carotid bruit, JVD, lymphadenopathy, thyromegaly Respiratory exam: PRESENT: wheezes Cardiovascular exam: PRESENT: RRR, tachycardia. ABSENT: diastolic murmur, rubs, systolic murmur Vascular exam: PRESENT: normal capillary refill GI/Abdominal exam: PRESENT: normal bowel sounds, soft. ABSENT: distended, guarding, mass, organolmegaly, rebound, tenderness Rectal exam: PRESENT: deferred Musculoskeletal exam: PRESENT: ambulatory Neurological exam: PRESENT: alert, awake, oriented to person, oriented to place, oriented to time, oriented to situation, CN II-XII grossly intact. ABSENT: mo tor sensory deficit Psychiatric exam: PRESENT: appropriate affect, normal mood. ABSENT: homicidal ideation, suicidal ideation Skin exam: PRESENT: dry, intact, warm. ABSENT: cyanosis, rash Results Laboratory Results: 02/10/19 05:18 02/10/19 05:18 02/09/19 02/09/19 02/10/19 16:00 20:50 05:18 WBC RBC Hgb Hct MCV MCH MCHC RDW Plt Count Seg Neutrophils % Lymphocytes % Monocytes % Eosinophils % Basophils % Absolute Neutrophils Absolute Lymphocytes Absolute Monocytes Absolute Eosinophils Absolute Basophils Carbonic Acid HCO3/H2CO3 Ratio ABG pH ABG pCO2 ABG pO2 ABG HCO3 ABG O2 Saturation ABG Base Excess FiO2 Sodium Potassium Chloride Carbon Dioxide Anion Gap BUN Creatinine Est GFR ( Amer) Est GFR (Non-Af Amer) Glucose Lactic Acid 4.5 H 5.0 H 3.1 H Calcium 02/10/19 02/10/19 02/10/19 05:18 05:18 06:10 WBC 19.0 H RBC 4.47 Hgb 12.7 Hct 39.3 MCV 88 MCH 28.3 MCHC 32.2 RDW 14.2 H Plt Count 350 Seg Neutrophils % Not Reportable Lymphocytes % Not Reportable Monocytes % Not Reportable Eosinophils % Not Reportable Basophils % Not Reportable Absolute Neutrophils Not Reportable Absolute Lymphocytes Not Reportable Absolute Monocytes Not Reportable Absolute Eosinophils Not Reportable Absolute Basophils Not Reportable Carbonic Acid 0.93 L HCO3/H2CO3 Ratio 21:1 ABG pH 7.43 ABG pCO2 30.8 L ABG pO2 62.2 L ABG HCO3 19.8 L ABG O2 Saturation 92.7 L ABG Base Excess -3.5 FiO2 28% Sodium 138.9 Potassium 4.6 Chloride 111 H Carbon Dioxide 18 L Anion Gap 10 BUN 12 Creatinine 0.71 Est GFR ( Amer) > 60 Est GFR (Non-Af Amer) > 60 Glucose 175 H Lactic Acid Calcium 9.8 02/10/19 05:18 NT-Pro-B Natriuret Pep 76 Impressions: Chest X-Ray 02/09/19 08:55 IMPRESSION: NO ACUTE RADIOGRAPHIC FINDING IN THE CHEST. Assessment & Plan - Diagnosis (1) Asthma exacerbation Qualifiers: Asthma severity: unspecified severity Asthma persistence: persistent Qualified Code(s): J45.901 - Unspecified asthma with (acute) exacerbation Is this a current diagnosis for this admission?: Yes Plan: Reduce the IV steroids Reduce the nebulizer treatment every 6 hours (2) Cough Is this a current diagnosis for this admission?: Yes Plan: Continues to Mucinex (3) Leukocytosis Qualifiers: Leukocytosis type: unspecified Qualified Code(s): D72.829 - Elevated white blood cell count, unspecified Is this a current diagnosis for this admission?: Yes Plan: Continues to IV antibiotic coverage - Time Time Spent with patient: 15-24 minutes Medications reviewed and adjusted accordingly: Yes Anticipated discharge: Home Within: Other - Plan Summary Plan Summary: Follow with the Dr. Mcdaniel Continues to current medications
[2019-02-10] MEDS: AZITHROMYCIN 500 MG in DEXTROSE 5%-WATER 250 ML IV SCH (22:00)
[2019-02-11] MEDS: LEVALBUTEROL HCL NEB 1.25 MG/3 ML AMPUL NEB SCH ×6 (00:17→20:44)
[2019-02-11] MEDS: CEFEPIME 2 GM/D5W RTU 2 GM/50 ML RTUPB IV SCH ×2 (05:19→17:23)
[2019-02-11] MEDS: METHYLPREDNISOLONE INJ 125 MG/2 ML SDV IV SCH (06:36)
[2019-02-11 07:51] LABS: HEMATOCRIT 39.5 % (36.0-47.0); HEMOGLOBIN 12.6 g/dL (12.0-15.5); MEAN CORPUSCULAR HEMOGLOBIN 28.3 pg (27.0-33.4); MEAN CORPUSCULAR HGB CONC 31.9 g/dL (32.0-36.0); MEAN CORPUSCULAR VOLUME 89 fl (80-97); RED BLOOD COUNT 4.45 10^6/uL (3.72-5.28); RED CELL DISTRIBUTION WIDTH 14.2 % (11.5-14.0); WHITE BLOOD COUNT 21.9 10^3/uL (4.0-10.5)
[2019-02-11 08:20] LABS: ABSOLUTE LYMPHOCYTES# (MANUAL) 1.1 10^3/uL (0.5-4.7); ABSOLUTE MONOCYTES # (MANUAL) 0.9 10^3/uL (0.1-1.4); ABSOLUTE NEUTROPHILS# (MANUAL) 19.9 10^3/uL (1.7-8.2); BAND NEUTROPHILS % (MANUAL) 1 % (3-5); BASOPHILS % (MANUAL) 0 % (0-2); EOSINOPHILS % (MANUAL) 0 % (0-6); LYMPHOCYTES % (MANUAL) 5 % (13-45); MONOCYTES % (MANUAL) 4 % (3-13); SEGMENTED NEUTROPHILS % (MAN) 90 % (42-78); TOTAL CELLS COUNTED 100
[2019-02-11 08:22] LABS: ANION GAP 10 (5-19); ANISOCYTOSIS SLIGHT; BLOOD UREA NITROGEN 18 mg/dL (7-20); CARBON DIOXIDE 19 mmol/L (22-30); CHLORIDE 108 mmol/L (98-107); GLUCOSE 142 mg/dL (75-110); POIKILOCYTOSIS SLIGHT; POLYCHROMASIA SLIGHT; POTASSIUM 4.7 mmol/L (3.6-5.0); SODIUM 137.2 mmol/L (137-145); TEAR DROP CELLS SLIGHT; TOXIC VACUOLATION PRESENT
[2019-02-11 08:23] LABS: PLATELET CLUMPS PRESENT; PLATELET COMMENT ADEQUATE; PLATELET COUNT 379 10^3/uL (150-450)
--- NOTE | 2019-02-11 08:29 | PDOC PROGRESS REPORT ---
Subjective Progress Note for:: 02/11/19 Subjective:: Patient is feeling much better Patient is off the oxygen's Patient is denied any chest pain to than any shortness of the breath Reason For Visit: ASTHMA WITH ACUTE EXACERBATIONS Physical Exam Vital Signs: Temp Pulse Resp BP Pulse Ox 98.4 F 102 H 18 137/79 H 96 02/11/19 00:00 02/11/19 07:00 02/11/19 04:26 02/11/19 00:00 02/11/19 04:26 Pulse Oximeter Continuous Start: 02/09/19 22:21 Freq: Status: Complete Protocol: Document 02/10/19 12:07 [facility] [place]Rec: 02/10/19 12:20 [facility] [id number] Pulse Oximetry Assessment Oxygen Saturation (92-100) 93 Oxygen Delivery Method Room Air Fraction of Inspired Oxygen (FIO2) 21 Equipment Usage Equipment Discontinued Continuous SpO2 Machine # N [id number] Intake & Output 02/10/19 02/11/19 02/12/19 06:59 06:59 06:59 Intake Total 1810 2896 Balance 1810 2896 Weight 115.2 kg General appearance: PRESENT: no acute distress, well-developed, well-nourished Head exam: PRESENT: atraumatic, normocephalic Eye exam: PRESENT: conjunctiva pink, EOMI, PERRLA. ABSENT: scleral icterus Ear exam: PRESENT: normal external ear exam Mouth exam: PRESENT: moist, tongue midline Neck exam: PRESENT: full ROM. ABSENT: carotid bruit, JVD, lymphadenopathy, thyromegaly Respiratory exam: PRESENT: clear to auscultation lucrecia Cardiovascular exam: PRESENT: RRR. ABSENT: diastolic murmur, rubs, systolic murmur Vascular exam: PRESENT: normal capillary refill GI/Abdominal exam: PRESENT: normal bowel sounds, soft. ABSENT: distended, guarding, mass, organolmegaly, rebound, tenderness Rectal exam: PRESENT: deferred Extremities exam: ABSENT: pedal edema Musculoskeletal exam: PRESENT: ambulatory Neurological exam: PRESENT: alert, awake, oriented to person, oriented to place, oriented to time, oriented to situation, CN II-XII grossly intact. ABSENT: motor sensory deficit Psychiatric exam: PRESENT: appropriate affect, normal mood. ABSENT: homicidal ideation, suicidal ideation Skin exam: PRESENT: dry, intact, warm. ABSENT: cyanosis, rash Results Laboratory Results: 02/11/19 07:07 Seg Neutrophils % Not Reportable Lymphocytes % Not Reportable Monocytes % Not Reportable Eosinophils % Not Reportable Basophils % Not Reportable Absolute Neutrophils Not Reportable Absolute Lymphocytes Not Reportable Absolute Monocytes Not Reportable Absolute Eosinophils Not Reportable Absolute Basophils Not Reportable 02/10/19 05:18 NT-Pro-B Natriuret Pep 76 Impressions: Chest X-Ray 02/09/19 08:55 IMPRESSION: NO ACUTE RADIOGRAPHIC FINDING IN THE CHEST. Assessment & Plan - Diagnosis (1) Asthma exacerbation Qualifiers: Asthma severity: unspecified severity Asthma persistence: persistent Qualified Code(s): J45.901 - Unspecified asthma with (acute) exacerbation Is this a current diagnosis for this admission?: Yes Plan: Currently all improving Reduce the IV steroid (2) Cough Is this a current diagnosis for this admission?: Yes Plan: Continues to Mucinex (3) Leukocytosis Qualifiers: Leukocytosis type: unspecified Qualified Code(s): D72.829 - Elevated white blood cell count, unspecified Is this a current diagnosis for this admission?: Yes Plan: Blood culture is so far negative Sputum culture is still pending Cover with the antibiotic - Time Time Spent with patient: 15-24 minutes Medications reviewed and adjusted accordingly: Yes Anticipated discharge: Home Within: within 48 hours - Plan Summary Plan Summary: Continues to current medication as able changes
[2019-02-11] MEDS: ENOXAPARIN SODIUM INJ 40 MG/0.4 ML DISP.SYRIN SUBCUT SCH (09:00)
[2019-02-11] MEDS: FAMOTIDINE 20 MG TABLET PO SCH ×2 (09:00→21:06)
[2019-02-11] MEDS: METHYLPREDNISOLONE INJ 40 MG/1 ML SDV IV SCH ×2 (13:57→21:06)
[2019-02-11] MEDS ORDERED: METHYLPREDNISOLONE INJ 125 MG/2 ML SDV IV SCH (14:00)
[2019-02-11] MEDS ORDERED: MAG HYDROX/AL HYDROX/SIMETH SUSP 30 ML UDCUP PO PRN (17:27)
--- NOTE | 2019-02-11 17:50 | RADIOLOGY REPORT (SQ) ---
EXAM DESCRIPTION: CHEST 2 VIEWS COMPLETED DATE/TIME: 02/11/2019 5:23 pm REASON FOR STUDY: asthma COMPARISON: 02/09/2019. EXAM PARAMETERS: NUMBER OF VIEWS: two views TECHNIQUE: Digital Frontal and Lateral radiographic views of the chest acquired. RADIATION DOSE: NA LIMITATIONS: none FINDINGS: LUNGS AND PLEURA: No opacities, masses or pneumothorax. No pleural effusion. MEDIASTINUM AND HILAR STRUCTURES: No masses or contour abnormalities. HEART AND VASCULAR STRUCTURES: Heart normal size. No evidence for failure. BONES: No acute findings. HARDWARE: None in the chest. OTHER: No other significant finding. IMPRESSION: NO ACUTE RADIOGRAPHIC FINDING IN THE CHEST. TECHNICAL DOCUMENTATION: JOB ID: [id number] [employer]- All Rights Reserved Reading location - IP/workstation name: [email or web address]
[2019-02-11] MEDS ORDERED: AZITHROMYCIN 250 MG TABLET PO SCH (22:00)
[2019-02-12] MEDS: LEVALBUTEROL HCL NEB 1.25 MG/3 ML AMPUL NEB SCH ×6 (00:03→21:53)
[2019-02-12] MEDS: METHYLPREDNISOLONE INJ 40 MG/1 ML SDV IV SCH (05:26)
[2019-02-12] MEDS: CEFEPIME 2 GM/D5W RTU 2 GM/50 ML RTUPB IV SCH (05:27)
[2019-02-12 06:13] LABS: HEMATOCRIT 37.3 % (36.0-47.0); HEMOGLOBIN 12.1 g/dL (12.0-15.5); MEAN CORPUSCULAR HEMOGLOBIN 28.9 pg (27.0-33.4); MEAN CORPUSCULAR HGB CONC 32.5 g/dL (32.0-36.0); MEAN CORPUSCULAR VOLUME 89 fl (80-97); PLATELET COUNT 347 10^3/uL (150-450); RED BLOOD COUNT 4.19 10^6/uL (3.72-5.28); RED CELL DISTRIBUTION WIDTH 14.1 % (11.5-14.0); WHITE BLOOD COUNT 20.8 10^3/uL (4.0-10.5)
[2019-02-12 06:29] LABS: ANION GAP 8 (5-19); BLOOD UREA NITROGEN 21 mg/dL (7-20); CALCIUM 9.7 mg/dL (8.4-10.2); CARBON DIOXIDE 21 mmol/L (22-30); CHLORIDE 108 mmol/L (98-107); GLUCOSE 140 mg/dL (75-110); POTASSIUM 4.5 mmol/L (3.6-5.0); SODIUM 136.7 mmol/L (137-145)
[2019-02-12 06:39] LABS: ABSOLUTE LYMPHOCYTES# (MANUAL) 1.7 10^3/uL (0.5-4.7); ABSOLUTE MONOCYTES # (MANUAL) 0.6 10^3/uL (0.1-1.4); ABSOLUTE NEUTROPHILS# (MANUAL) 18.5 10^3/uL (1.7-8.2); BASOPHILS % (MANUAL) 0 % (0-2); EOSINOPHILS % (MANUAL) 0 % (0-6); LYMPHOCYTES % (MANUAL) 8 % (13-45); MONOCYTES % (MANUAL) 3 % (3-13); SEGMENTED NEUTROPHILS % (MAN) 89 % (42-78); TOTAL CELLS COUNTED 100
[2019-02-12 06:40] LABS: PLATELET COMMENT ADEQUATE; RBC MORPHOLOGY COMMENT NORMO-CYTIC/CHROMIC; TOXIC VACUOLATION PRESENT
[2019-02-12] MEDS: ENOXAPARIN SODIUM INJ 40 MG/0.4 ML DISP.SYRIN SUBCUT SCH (09:14)
[2019-02-12] MEDS: FAMOTIDINE 20 MG TABLET PO SCH ×2 (09:14→22:02)
[2019-02-12] MEDS: DOXYCYCLINE HYCLATE 100 MG TABLET PO SCH ×2 (12:16→22:02)
--- NOTE | 2019-02-12 12:29 | PDOC PROGRESS REPORT ---
Subjective Progress Note for:: 02/12/19 Subjective:: Patient is currently doing well Patient is denied any chest pain to than any shortness of the breath No fever Patient's white count is stable patient still elevated I believe most likely from the steroid Patient is walking the hallway without any problems Reason For Visit: ASTHMA WITH ACUTE EXACERBATIONS Physical Exam Vital Signs: Temp Pulse Resp BP Pulse Ox 98.0 F 89 16 115/79 95 02/12/19 07:39 02/12/19 12:07 02/12/19 12:07 02/12/19 07:39 02/12/19 12:07 Pulse Oximeter Continuous Start: 02/09/19 22:21 Freq: Status: Complete Protocol: Document 02/10/19 12:07 [facility] [place] 02/10/19 12:20 [facility] [id number] Pulse Oximetry Assessment Oxygen Saturation (92-100) 93 Oxygen Delivery Method Room Air Fraction of Inspired Oxygen (FIO2) 21 Equipment Usage Equipment Discontinued Continuous SpO2 Machine # N 11 Intake & Output 02/11/19 02/12/19 02/13/19 06:59 06:59 06:59 Intake Total 2896 1138 Balance 2896 1138 Weight 115.2 kg General appearance: PRESENT: no acute distress, well-developed, well-nourished Head exam: PRESENT: atraumatic, normocephalic Eye exam: PRESENT: conjunctiva pink, EOMI, PERRLA. ABSENT: scleral icterus Ear exam: PRESENT: normal external ear exam Mouth exam: PRESENT: moist, tongue midline Neck exam: PRESENT: full ROM. ABSENT: carotid bruit, JVD, lymphadenopathy, thyromegaly Respiratory exam: PRESENT: clear to auscultation lucrecia Cardiovascular exam: PRESENT: RRR. ABSENT: diastolic murmur, rubs, systolic murmur Vascular exam: PRESENT: normal capillary refill GI/Abdominal exam: PRESENT: normal bowel sounds, soft. ABSENT: distended, guarding, mass, organolmegaly, rebound, tenderness Rectal exam: PRESENT: deferred Extremities exam: ABSENT: pedal edema Musculoskeletal exam: PRESENT: ambulatory Neurological exam: PRESENT: alert, awake, oriented to person, oriented to place, oriented to time, oriented to situation, CN II-XII grossly intact. ABSENT: motor sensory deficit Psychiatric exam: PRESENT: appropriate affect, normal mood. ABSENT: homicidal ideation, suicidal ideation Skin exam: PRESENT: dry, intact, warm. ABSENT: cyanosis, rash Results Laboratory Results: 02/12/19 05:58 02/12/19 05:58 02/12/19 02/12/19 02/12/19 05:58 05:58 05:58 WBC 20.8 H RBC 4.19 Hgb 12.1 Hct 37.3 MCV 89 MCH 28.9 MCHC 32.5 RDW 14.1 H Plt Count 347 Seg Neutrophils % Not Reportable Lymphocytes % Not Reportable Monocytes % Not Reportable Eosinophils % Not Reportable Basophils % Not Reportable Absolute Neutrophils Not Reportable Absolute Lymphocytes Not Reportable Absolute Monocytes Not Reportable Absolute Eosinophils Not Reportable Absolute Basophils Not Reportable Sodium 136.7 L Potassium 4.5 Chloride 108 H Carbon Dioxide 21 L Anion Gap 8 BUN 21 H Creatinine 0.84 Est GFR ( Amer) > 60 Est GFR (Non-Af Amer) > 60 Glucose 140 H Lactic Acid 2.3 H Calcium 9.7 02/10/19 05:18 NT-Pro-B Natriuret Pep 76 Impressions: Chest X-Ray 02/11/19 00:00 IMPRESSION: NO ACUTE RADIOGRAPHIC FINDING IN THE CHEST. Assessment & Plan - Diagnosis (1) Asthma exacerbation Qualifiers: Asthma severity: unspecified severity Asthma persistence: persistent Qualified Code(s): J45.901 - Unspecified asthma with (acute) exacerbation Is this a current diagnosis for this admission?: Yes Plan: Will DC the IV steroid start on a p.o. steroid (2) Cough Is this a current diagnosis for this admission?: Yes Plan: Continues to Mucinex (3) Leukocytosis Qualifiers: Leukocytosis type: unspecified Qualified Code(s): D72.829 - Elevated white blood cell count, unspecified Is this a current diagnosis for this admission?: Yes Plan: DC the IV antibiotics while patients remain afebrile Start on the doxycycline Continues the current other medications Repeat the CBC in the morning Patient's wants to go home will see tomorrow if the remains stable hopefully discharge at - Time Time Spent with patient: 15-24 minutes Medications reviewed and adjusted accordingly: Yes Anticipated discharge: Home Within: within 24 hours - Plan Summary Plan Summary: Continues to current medications
[2019-02-12] MEDS ORDERED: PREDNISONE 20 MG TABLET PO SCH (18:00)
[2019-02-13] MEDS: LEVALBUTEROL HCL NEB 1.25 MG/3 ML AMPUL NEB SCH ×3 (00:49→08:37)
[2019-02-13 07:04] LABS: ABSOLUTE LYMPHOCYTES (AUTO) 2.1 10^3/uL (0.5-4.7); ABSOLUTE MONOCYTES (AUTO) 1.2 10^3/uL (0.1-1.4); ABSOLUTE NEUT (AUTO) 12.4 10^3/uL (1.7-8.2); BASOPHILS % (AUTO) 0.3 % (0-2); EOSINOPHILS % (AUTO) 0.2 % (0-6); HEMATOCRIT 37.5 % (36.0-47.0); HEMOGLOBIN 12.4 g/dL (12.0-15.5); LYMPHOCYTES % (AUTO) 13.4 % (13-45); MEAN CORPUSCULAR VOLUME 88 fl (80-97); MONOCYTES % (AUTO) 7.5 % (3-13); PLATELET COUNT 373 10^3/uL (150-450); RED BLOOD COUNT 4.28 10^6/uL (3.72-5.28); RED CELL DISTRIBUTION WIDTH 14.2 % (11.5-14.0); SEGMENTED NEUTROPHILS % (AUTO) 78.6 % (42-78); TOTAL CELLS COUNTED % (AUTO) 100 %; WHITE BLOOD COUNT 15.8 10^3/uL (4.0-10.5)
[2019-02-13 07:20] LABS: ANION GAP 7 (5-19); BLOOD UREA NITROGEN 20 mg/dL (7-20); CALCIUM 9.1 mg/dL (8.4-10.2); CARBON DIOXIDE 27 mmol/L (22-30); CHLORIDE 105 mmol/L (98-107); GLUCOSE 100 mg/dL (75-110); POTASSIUM 4.1 mmol/L (3.6-5.0); SODIUM 139.3 mmol/L (137-145)
[2019-02-13 08:44] VITALS: BP 129/70
--- NOTE | 2019-02-13 12:37 | PDOC DISCHARGE SUMMARY ---
General - Admit/Disc Date/PCP Admission Date/Primary Care Provider: 02/09/19 15:24 SHAKEEL ESTES MD Discharge Date: 02/13/19 - Discharge Diagnosis (1) Asthma exacerbation Is this a current diagnosis for this admission?: Yes Summary: Currently all resolving Follow with the Dr. Mcdaniel as outpatients (2) Cough Is this a current diagnosis for this admission?: Yes Summary: Currently all improving (3) Leukocytosis Is this a current diagnosis for this admission?: Yes Summary: Currently all improving Patients remain afebrile Patient lactic acid is normal Most likely related to the steroid Patients covered with the doxycycline - Additional Information Discharge Diet: Regular Discharge Activity: Activity As Tolerated, Balance Activity w/Rest, Slowly Increase Activity Prescriptions: Doxycycline Hyclate [Vibramycin 100 mg Tablet] 100 mg PO Q12 #14 tablet Home Medications: Albuterol Sulfate [Ventolin 0.083% Neb 2.5 mg/3 mL Ampul] 1 vial NEB Q4HP PRN 02/09/19 Prednisone [Deltasone 20 mg Tablet] 20 mg PO DAILY 02/09/19 Tiotropium Sidman [Spiriva Handihaler 5 Cap/Kit (18 Mcg/Cap)] 1 cap IH Q12 02/09/19 Doxycycline Hyclate [Vibramycin 100 mg Tablet] 100 mg PO Q12 #14 tablet 02/13/19 History of Present Illness History of Present Illness: ALEK RENNER is a 43 year old female This is a 43-year-old female with a significant history of the asthma with the multiple hospital admissions for the acute exacerbations currently on a steroid dependence prednisone [address] daily see Dr. Mcdaniel's pretty much as outpatient seen couple of weeks back seen by myself in the last hospital admission in June did not following office came to the emergency department with a complaining of cough congestions and increasing more productivity of the sputum Patient's denied any fever or chills In the emergency department patient oxygen saturation is 90-93%'s and dropped to up to 89%'s patients received a several respiratory treatments Solu-Medrol and IV magnesium's Patient's chest x-ray was clear At this point discussed with Dr. Mcdaniel's patient's pulmonary and suggest a hospital admission give IV Solu-Medrol and respiratory treatments did not think patient need a CT of the chest today When I saw the patient in the emergency department as usual still quite a bit wheezing Patient is denied any chest pain Patient's denied recently any travel or contact with any sick persons At this point decided to admit the patient's to continues to monitor continues to pulse ox and oxygen supplements Hospital Course Hospital Course: This is a 43-year-old female with a significant history of the asthma very extensive evaluations done at [place] seen by the Dr. Mcdaniel is a local pulmonary l and a chronic steroid therapy came to the emergency department with shortness of the breath bilateral wheezing with asthma with acute exacerbations Patient admitting in the hospital start on IV steroid and IV antibiotic Discussed with the Dr. Mcdaniel's and suggest that continues to as above medications Patient's response very well and IV steroid was introduced and switched to the p.o. steroids Patient's blood culture and a sputum culture is all stable Patient to white count was elevated which happen all the time when patient in the hospital which most likely steroid induced But patient is covered with the antibiotic due to this bronchitis Patient's discharge with the doxycycline The patient has remained afebrile Patient's white count is all normal patient's Oxygen saturation is all normal with the room air Patient is walking the hallway without any problems Follow outpatient Dr. Mcdaniel in 1 week Follow in office 1 week Physical Exam Vital Signs: Temp Pulse Resp BP Pulse Ox 97.9 F 85 16 129/70 H 97 02/13/19 08:36 02/13/19 08:36 02/13/19 08:36 02/13/19 08:36 02/13/19 08:36 Pulse Oximeter Continuous Start: 02/09/19 22:2 1 Freq: Status: Complete Protocol: Document 02/10/19 12:07 [facility] [place]Rec: 02/10/19 12:20 [facility] [id number] Pulse Oximetry Assessment Oxygen Saturation (92-100) 93 Oxygen Delivery Method Room Air Fraction of Inspired Oxygen (FIO2) 21 Equipment Usage Equipment Discontinued Continuous SpO2 Machine # N 11 Intake & Output 02/12/19 02/13/19 02/14/19 06:59 06:59 06:59 Intake Total 1138 1075 Balance 1138 1075 Weight 115.2 kg 115.2 kg General appearance: PRESENT: no acute distress, well-developed, well-nourished Head exam: PRESENT: atraumatic, normocephalic Eye exam: PRESENT: conjunctiva pink, EOMI, PERRLA. ABSENT: scleral icterus Ear exam: PRESENT: normal external ear exam Mouth exam: PRESENT: moist, tongue midline Neck exam: PRESENT: full ROM. ABSENT: carotid bruit, JVD, lymphadenopathy, thyromegaly Respiratory exam: PRESENT: clear to auscultation lucrecia Cardiovascular exam: PRESENT: RRR. ABSENT: diastolic murmur, rubs, systolic murmur Vascular exam: PRESENT: normal capillary refill GI/Abdominal exam: PRESENT: normal bowel sounds, soft. ABSENT: distended, guarding, mass, organolmegaly, rebound, tenderness Rectal exam: PRESENT: deferred Extremities exam: ABSENT: pedal edema Musculoskeletal exam: PRESENT: ambulatory Neurological exam: PRESENT: alert, awake, oriented to person, oriented to place, oriented to time, oriented to situation, CN II-XII grossly intact. ABSENT: motor sensory deficit Psychiatric exam: PRESENT: appropriate affect, normal mood. ABSENT: homicidal ideation, suicidal ideation Skin exam: PRESENT: dry, intact, warm. ABSENT: cyanosis, rash Results Laboratory Results: 02/13/19 06:48 02/13/19 06:48 02/12/19 02/13/19 02/13/19 11:53 06:48 06:48 WBC 15.8 H RBC 4.28 Hgb 12.4 Hct 37.5 MCV 88 MCH 29.0 MCHC 33.0 RDW 14.2 H Plt Count 373 Seg Neutrophils % 78.6 H Lymphocytes % 13.4 Monocytes % 7.5 Eosinophils % 0.2 Basophils % 0.3 Absolute Neutrophils 12.4 H Absolute Lymphocytes 2.1 Absolute Monocytes 1.2 Absolute Eosinophils 0.0 Absolute Basophils 0.0 Sodium 139.3 Potassium 4.1 Chloride 105 Carbon Dioxide 27 Anion Gap 7 BUN 20 Creatinine 0.80 Est GFR ( Amer) > 60 Est GFR (Non-Af Amer) > 60 Glucose 100 Lactic Acid 1.6 Calcium 9.1 02/10/19 05:18 NT-Pro-B Natriuret Pep 76 Impressions: Chest X-Ray 02/11/19 00:00 IMPRESSION: NO ACUTE RADIOGRAPHIC FINDING IN THE CHEST. Qualifiers - * PATIENT BEING DISCHARGED WITH ANY OF THE FOLLOWING DIAGNOSIS: No VTE patient discharged on overlapping Therapy?: Yes Plan Time Spent: Greater than 30 Minutes - Continues to current medication as able Discharged with a tapering dose of the steroid Follow outpatients pulmonary Repeat CBC in 1 week
== END 2019-02-13 09:00 | disposition home or self-care (01) | DRG 203 ==
LOC: ER 08:26 → EH 15:07 → OBSVTOIN 15:24 → 4S 18:01
PROVIDERS: ADMIT Family Medicine; ATTEND Family Medicine
DX: J45.901 Unspecified asthma with (acute) exacerbation (principal); D72.829 Elevated white blood cell count, unspecified; Z79.52 Long term (current) use of systemic steroids; Z90.710 Acquired absence of both cervix and uterus; Z88.2 Allergy status to sulfonamides; Z79.51 Long term (current) use of inhaled steroids
CPT/HCPCS: 36415; 36600; 71046; 80048; 80053; 82803; 83605; 83735; 83880; 85025; 87040; 87070; 87205; 94640; 94762; 96361; 96374; 96375; 99285; J0456; J0692; J1650; J2920; J2930; J3475; J3490; J7030; J7060; J7512; J7620

== ENCOUNTER 2019-07-23 09:41 | Emergency (ER) | payer SELFPAY ==
[2019-07-23 10:40] LABS: ABSOLUTE BASOPHILS # (AUTO) 0.1 10^3/uL (0.0-0.2); ABSOLUTE EOSINOPHILS # (AUTO) 0.5 10^3/uL (0.0-0.6); ABSOLUTE LYMPHOCYTES (AUTO) 2.3 10^3/uL (0.5-4.7); ABSOLUTE MONOCYTES (AUTO) 0.8 10^3/uL (0.1-1.4); ABSOLUTE NEUT (AUTO) 13.2 10^3/uL (1.7-8.2); BASOPHILS % (AUTO) 0.8 % (0-2); EOSINOPHILS % (AUTO) 2.7 % (0-6); HEMATOCRIT 40.5 % (36.0-47.0); HEMOGLOBIN 12.9 g/dL (12.0-15.5); LYMPHOCYTES % (AUTO) 13.7 % (13-45); MEAN CORPUSCULAR HEMOGLOBIN 28.4 pg (27.0-33.4); MEAN CORPUSCULAR HGB CONC 31.9 g/dL (32.0-36.0); MEAN CORPUSCULAR VOLUME 89 fl (80-97); MONOCYTES % (AUTO) 4.9 % (3-13); PLATELET COUNT 367 10^3/uL (150-450); RED BLOOD COUNT 4.56 10^6/uL (3.72-5.28); RED CELL DISTRIBUTION WIDTH 13.9 % (11.5-14.0); SEGMENTED NEUTROPHILS % (AUTO) 77.9 % (42-78); TOTAL CELLS COUNTED % (AUTO) 100 %
[2019-07-23 10:44] LABS: APPEARANCE,URINE SLIGHTLY-CLOUDY; BILIRUBIN,URINE NEGATIVE (NEGATIVE); COLOR,URINE YELLOW; GLUCOSE, URINE NEGATIVE (NEGATIVE); KETONES,URINE NEGATIVE (NEGATIVE); LEUKOCYTE ESTERASE,URINE NEGATIVE (NEGATIVE); NITRITE,URINE NEGATIVE (NEGATIVE); PROTEIN,URINE 30 mg/dL (NEGATIVE); URINE SPECIFIC GRAVITY 1.012; UROBILINOGEN,URINE NEGATIVE mg/dL (<2.0)
[2019-07-23 10:48] LABS: ADD MANUAL MICROSCOPIC YES
[2019-07-23 10:52] LABS: ALBUMIN 3.8 g/dL (3.5-5.0); ALKALINE PHOSPHATASE 94 U/L (38-126); ANION GAP 8 (5-19); ASPARTATE AMINO TRANSFERASE 16 U/L (14-36); BILIRUBIN,DIRECT 0.1 mg/dL (0.0-0.4); BILIRUBIN,TOTAL 0.4 mg/dL (0.2-1.3); BLOOD UREA NITROGEN 12 mg/dL (7-20); CALCIUM 9.3 mg/dL (8.4-10.2); CARBON DIOXIDE 23 mmol/L (22-30); CHLORIDE 107 mmol/L (98-107); GLUCOSE 183 mg/dL (75-110); POTASSIUM 4.4 mmol/L (3.6-5.0); TOTAL PROTEIN 6.8 g/dL (6.3-8.2)
[2019-07-23 11:01] LABS: BACTERIA,URINE TRACE /HPF; WBC,URINE 0-1 /HPF
[2019-07-23] MEDS ORDERED: METHYLPREDNISOLONE INJ 125 MG/2 ML SDV IV ONE (11:21)
[2019-07-23] MEDS ORDERED: IPRATROPIUM/ALBUTEROL 0.5-2.5 MG/3 ML AMPUL NEB ONE (11:21)
[2019-07-23] MEDS ORDERED: KETOROLAC TROMETHAMINE INJ/PF 30 MG/1 ML SDV IV ONE (11:21)
--- NOTE | 2019-07-23 11:44 | RADIOLOGY REPORT (SQ) ---
EXAM DESCRIPTION: CT ABD/PELVIS NO ORAL OR IV COMPLETED DATE/TIME: 07/23/2019 11:28 am REASON FOR STUDY: Right flank pain with hematuria COMPARISON: CT abdomen pelvis, 03/09/2018 TECHNIQUE: CT scan of the abdomen and pelvis performed without intravenous or oral contrast. Images reviewed with lung, soft tissue, and bone windows. Reconstructed coronal and sagittal MPR images revi ewed. All images stored on PACS. All CT scanners at this facility use dose modulation, iterative reconstruction, and/or weight based d osing when appropriate to reduce radiation dose to as low as reasonably achievable (ALARA). [facility]: Dose Right [facility]: CareDose [facility]: Dose Right [facility]: Teradose 4D [facility]: [employer] RADIATION DOSE: 1015 mGy cm LIMITATIONS: None. FINDINGS: LOWER CHEST: There are new discrete nodules associated with bandlike scarring or atelectas is of the partially included medial segment right middle lobe measuring 1.0 and 0.7 cm. NON-CONTRASTED LIVER, SPLEEN, ADRENALS: Evaluation limited by lack of IV contrast. No identified sign ificant masses. PANCREAS: No masses. No peripancreatic inflammatory changes. GALLBLADDER: No identified stones by CT criteria. No inflammatory changes to suggest cholecystitis. RIGHT KIDNEY AND URETER: No suspicious masses. Assessment limited by lack of IV contrast. There is a 3 mm obstructive calculus of the proximal right ureter with mild associated right hydronephrosis and hydroureter. Additional nonobstructive calculi. LEFT KIDNEY AND URETER: No suspicious masses. Assessment limited by lack of IV contrast. Nonobstruc tive calculi. No hydronephrosis or hydroureter. AORTA AND RETROPERITONEUM: No aneurysm. No retroperitoneal masses or adenopathy. BOWEL AND PERITONEAL CAVITY: No obvious masses or inflammatory changes. No free fluid. APPENDIX: Normal. PELVIS, BLADDER, AND ABDOMINAL WALL:No abnormal masses. No free fluid. Bladder normal. BONES: No significant findings. OTHER: No other significant finding. IMPRESSION: 1. There is a 3 mm obstructive calculus of the proximal right ureter with mild associate d right hydronephrosis and hydroureter. 2. Multiple additional bilateral nonobstructive renal calculi. 3. There are new discrete nodules associated with bandlike scarring or atelectasis of the partially i ncluded medial segment right middle lobe measuring 1.0 and 0.7 cm when compared to prior examination dated 03/09/2018. Recommend follow-up CT examination of the chest to further evaluate. COMMENT: Quality ID # [id number]: Final reports with documentation of one or more dose reduction techniques (e.g., Automated exposure control, adjustment of the mA and/or kV according to patient size, use of iterative reconstruction technique) TECHNICAL DOCUMENTATION: JOB ID: [id number] [employer]- All Rights Reserved Reading location - IP/workstation name: [email or web address]
--- NOTE | 2019-07-23 12:03 | ER Document Report ---
Entered by SALMA RICK SCRIBE 07/23/19 1121 Acting as scribe for:MARCIE BELLO MD ED GI/ - General Chief Complaint: Flank Pain Stated Complaint: FLANK PAIN Time Seen by Provider: 07/23/19 11:08 Primary Care Provider: SHAKEEL ESTES MD [Primary Care Provider] - Follow up as needed Mode of Arrival: Ambulatory Information source: Patient Notes: 44-year-old female who presents to the emergency department today with complaints of right-sided flank pain. Patient states she has a history of kidney stones and it feels similar to her previous kidney stones. Patient also has some wheezing which she states is her asthma flaring up. Patient is on 20mg of prednisone daily already for her asthma. TRAVEL OUTSIDE OF THE [place] IN LAST 30 DAYS: No - Related Data Allergies/Adverse Reactions: Sulfa (Sulfonamide Antibiotics) Allergy (Verified 07/23/19 09:42) Past Medical History - General Information source: Patient - Social History Smoking Status: Never Smoker Cigarette use (# per day): No Chew tobacco use (# tins/day): No Frequency of alcohol use: None Drug Abuse: None Family History: Reviewed & Not Pertinent Patient has suicidal ideation: No Patient has homicidal ideation: No Pulmonary Medical History: Reports: Hx Asthma - Hospitalized January & February 2015, Hx Pneumonia - 3-4 yrs ago Past Surgical History: Reports: Hx Breast Surgery - left breast lump removed, Hx Genitourinary Surgery - Bladder tuck, Hx Hysterectomy, Hx Orthopedic Surgery - RIGHT ANKLE ORIF, Hx Tubal Ligation - Immunizations Hx Diphtheria, Pertussis, Tetanus Vaccination: Yes Hx Pneumococcal Vaccination: 02/07/15 Review of Systems - Review of Systems Constitutional: No symptoms reported EENT: No symptoms reported Cardiovascular: No symptoms reported Respiratory: See HPI, Wheezing Gastrointestinal: See HPI, Abdominal pain Genitourinary: See HPI, Flank pain - right Female Genitourinary: No symptoms reported Musculoskeletal: No symptoms reported Skin: No symptoms reported Hematologic/Lymphatic: No symptoms reported Neurological/Psychological: No symptoms reported -: Yes All other systems reviewed and negative Physical Exam - Vital signs Vitals: Temp Pulse Resp BP Pulse Ox 98.5 F 88 20 157/103 H 93 07/23/19 09:44 07/23/19 09:44 07/23/19 09:44 07/23/19 09:44 07/23/19 09:44 - Notes Notes: Physical Exam: General: Alert, appears uncomfortable. HEENT: Normocephalic. Atraumatic. PERRL. Extraocular movements intact. Oropharynx clear. Neck: Supple. Non-tender. Respiratory: No respiratory distress. Inspiratory and expiratory wheezing bilaterally. Cardiovascular: Regular rate and rhythm. Abdominal: Obese. RLQ tenderness with palpation. No distension. Normal Bowel Sounds. Back: Right CVA tenderness with percussion. Extremities: Moves all four extremities. Upper extremities: Normal inspection. Normal ROM. Lower extremities: Normal inspection. No edema. Normal ROM. Neurological: Normal cognition. AAOx4. Normal speech. Psychological: Normal affect. Normal Mood. Skin: Warm. Dry. Normal color. Course - Vital Signs Vital signs: Temp Pulse Resp BP Pulse Ox 98.3 F 86 16 130/80 H 97 07/23/19 12:49 07/23/19 12:49 07/23/19 12:49 07/23/19 12:49 07/23/19 12:49 - Laboratory Result Diagrams: 07/23/19 10:10 07/23/19 10:10 Laboratory results interpreted by me: 07/23/19 07/23/19 07/23/19 10:10 10:10 10:10 WBC 17.0 H MCHC 31.9 L Absolute Neuts (auto) 13.2 H Glucose 183 H Urine Protein 30 H Urine Blood LARGE H - Diagnostic Test Radiology reviewed: Image reviewed, Reports reviewed - Noncontrast CT scan abdomen pelvis shows a 3 mm obstructive calculus of the proximal right ureter with mild associated hydronephrosis hydroureter. There are multiple additional bilateral nonobstructive renal calculi. There are no new discrete nodules assoc iated with bandlike scarring or atelectasis of the partially included medial segment of the right middle lobe compared to prior examination on 03/09/2018. Follow-up CT exam of the chest to further evaluate is recommended. Discharge - Discharge Clinical Impression: Renal colic on right side, Calculus of proximal right ureter, Bilateral renal stones, Pulmonary nodules Condition: Stable Disposition: HOME, SELF-CARE Additional Instructions: Kidney Stone: You are passing a kidney stone. These stones are usually due to increased calcium or uric acid concentrations in your urine. Stones within the kidney itself are not painful. The pain occurs as the stone leaves the kidney to pass down the long tube, called the ureter, leading to the bladder. If the stone is small, it will usually pass by itself. Most patients can pass the stone at home. You will usually receive medications for pain, nausea or vomiting, and sometimes a medication to assist in passing the kidney stone. However, if the pain is very severe or if vomiting prevents you from taking oral pain medications, you may need to return for further treatment. Drink three or four quarts of fluids per day. You will be given pain medication (if needed) and urine strainers. Strain all your urine to see if the stone passes. If your doctor has asked you to bring the stone in for analysis, return with the stone once it has passed. Return if pain or vomiting become severe, if you develop a high fever, if you are unable to pass your urine, or if other unusual symptoms occur. Pulmonary Nodules: There were new nodules seen in the right middle lobe of your lung on the CT scan today compared to the scan done in February 2018. Start taking the Flomax tomorrow. Take ibuprofen 800 mg every 8 hours. Take the pain medication as prescribed if needed. Drink plenty of fluids throughout the day in the evening every day. Strain your urine. Follow-up with Dr. Estes to review your CT scan findings, and for appropriate referrals. RETURN TO THE EMERGENCY ROOM IF ANY NEW OR WORSENING SYMPTOMS. Prescriptions: Tamsulosin HCl [Flomax 0.4 mg Cap.sr] 0.4 mg PO DAILY #7 cap.sr.24h Oxycodone HCl/Acetaminophen [Percocet 5-325 mg Tablet] 1 tab PO ASDIR PRN #15 tablet PRN Reason: Referrals: SHAKEEL ESTES MD [Primary Care Provider] - Follow up in 3-5 days Scribe Attestation: 07/23/19 14:18 I personally performed the services described in the documentation, reviewed and edited the documentation which was dictated to the scribe in my presence, and it accurately records my words and actions. I personally performed the services described in the documentation, reviewed and edited the documentation which was dictated to the scribe in my presence, and it accurately records my words and actions.
[2019-07-23 12:51] VITALS: BP 130/80
[2019-07-23] MEDS ORDERED: TAMSULOSIN HCL 0.4 MG CAP.SR.24H PO ONE (14:09)
== END 2019-07-23 14:25 | disposition home or self-care (01) ==
LOC: ER 09:41
DX: N20.2 Calculus of kidney with calculus of ureter (principal); N20.0 Calculus of kidney; R91.8 Other nonspecific abnormal finding of lung field; R10.9 Unspecified abdominal pain; R06.2 Wheezing; Z87.442 Personal history of urinary calculi; Z88.2 Allergy status to sulfonamides; Z90.710 Acquired absence of both cervix and uterus
CPT/HCPCS: 94640; 99285; 96374; 96375; 36415; 83690; 84703; 85025; 80053; 81001; 74176; J2930; J1885; J7620

== ENCOUNTER 2019-07-29 08:04 | Emergency (ER) | payer SELFPAY ==
[2019-07-29 08:36] LABS: APPEARANCE,URINE CLEAR; BILIRUBIN,URINE NEGATIVE (NEGATIVE); COLOR,URINE YELLOW; GLUCOSE, URINE NEGATIVE (NEGATIVE); KETONES,URINE NEGATIVE (NEGATIVE); LEUKOCYTE ESTERASE,URINE NEGATIVE (NEGATIVE); NITRITE,URINE NEGATIVE (NEGATIVE); PROTEIN,URINE NEGATIVE (NEGATIVE); URINE SPECIFIC GRAVITY 1.008; UROBILINOGEN,URINE NEGATIVE mg/dL (<2.0)
--- NOTE | 2019-07-29 08:41 | ER Document Report ---
ED GI/ - General Chief Complaint: Flank Pain Stated Complaint: FLANK PAIN Time Seen by Provider: 07/29/19 08:30 Primary Care Provider: [facility] [Provider Group] - Follow up in 3-5 days SHAKEEL ESTES MD [Primary Care Provider] - Follow up in 3-5 days Notes: Patient is a 44-year-old female who presents to the emergency department with a chief complaint of right flank pain. She was seen here in the emergency department 6 days ago and was diagnosed with kidney stones. She has been taking her Flomax and has been increasing her fluid intake, but continues to have pain in her right flank area. She states that sitting and standing makes her pain worse, but bending over helps. She has had a hysterectomy and denies any vaginal discharge. Patient also has history of asthma. She is currently on prednisone and albuterol. She took a Percocet this morning at 3:30 and had no relief in her pain. TRAVEL OUTSIDE OF THE [place] IN LAST 30 DAYS: No - Related Data Allergies/Adverse Reactions: Sulfa (Sulfonamide Antibiotics) Allergy (Verified 07/29/19 08:13) Past Medical History - Social History Smoking Status: Never Smoker Family History: Reviewed & Not Pertinent - Past Medical History Cardiac Medical History: Denies: Hx Coronary Artery Disease, Hx Heart Attack, Hx Hypertension Pulmonary Medical History: Reports: Hx Asthma - Hospitalized January & February 2015, Hx Pneumonia - 3-4 yrs ago Denies: Hx Bronchitis, Hx COPD, Hx Intubation, Hx Tuberculosis Neurological Medical History: Denies: Hx Cerebrovascular Accident, Hx Seizures Renal/ Medical History: Reports: Hx Kidney Stones. Denies: Hx Peritoneal Dialysis Musculoskeletal Medical History: Denies Hx Arthritis Past Surgical History: Reports: Hx Breast Surgery - left breast lump removed, Hx Genitourinary Surgery - Bladder tuck, Hx Hysterectomy, Hx Orthopedic Surgery - RIGHT ANKLE ORIF, Hx Tubal Ligation. Denies: Hx Pacemaker - Immunizations Hx Diphtheria, Pertussis, Tetanus Vaccination: Yes Hx Pneumococcal Vaccination: 02/07/15 Review of Systems - Review of Systems Notes: REVIEW OF SYSTEMS: CONSTITUTIONAL : Denies recent illness. Denies recent unintentional weight loss. Denies fever, chills, or sweats. EENT: Denies eye, ear, throat, or mouth pain, discharge, or symptoms. Denies nasal or sinus congestion. CARDIOVASCULAR: Denies chest pain. RESPIRATORY: Denies shortness of breath, cough, congestion, difficulty breathing, or wheezing. GASTROINTESTINAL: Denies nausea, vomiting, and diarrhea. Denies abdominal pain. Denies constipation. GENITOURINARY: See HPI. MUSCULOSKELETAL: See HPI. Denies joint pain or swelling. SKIN: Denies rash, itchiness, or lesions HEMATOLOGIC : Denies easy bruising or bleeding. LYMPHATIC: Denies swollen, painful, enlarged glands. NEUROLOGICAL: Denies no numbness or tingling denies weakness. Denies headache. Denies altered mental status. Denies alteration in speech. PSYCHIATRIC: Denies stress, anxiety, alteration in sleep patterns, or depression. All other systems reviewed and negative. Physical Exam - Vital signs Vitals: Temp Pulse Resp BP Pulse Ox 97.6 F 105 H 18 144/87 H 97 07/29/19 08:08 07/29/19 08:08 07/29/19 08:08 07/29/19 08:08 07/29/19 08:08 - Notes Notes: PHYSICAL EXAMINATION: GENERAL: Appears well, healthy, well-nourished, no acute distress. HEAD: Normocephalic, atraumatic. EYES: PERRL, conjunctiva normal, all extraocular movements intact, sclera jayne cteric ENT: Moist mucous membranes. NECK: Supple, no noticeable swelling, redness, rash. Normal range of motion. LUNGS: Equal breath sounds bilaterally and clear to auscultation. No wheezes rales or rhonchi. CARDIOVASCULAR: S1-S2, regular rate, regular rhythm. Radial pulses 2+, normal. ABDOMEN: Normoactive bowel sounds. Soft, mildly tender right upper abdomen, no guarding, no rebound tenderness, and no masses palpated. EXTREMITIES: Normal strength and range of motion, no pitting or edema. No cyanosis. NEUROLOGICAL: Moves all extremities upon command. Strength 5/5 in all extrem ities. PSYCH: Normal mood, normal affect. SKIN: Warm, dry. No rash, lesions, ulcerations noted. Normal skin turgor. BACK: Right CVA tenderness. Course - Re-evaluation Re-evalutation: 07/29/19 09:58 Patient's hematology shows a white blood cell count of 19,300. No anemia noted. Her chemistries are unremarkable. Urine shows a large amount of blood, consistent with her kidney stones found on ultrasound. CT of the of the chest shows groundglass nodules in the right middle lobe, consistent with her wheezing from her asthma. She also has a 4 mm stone that has traveled from the right ureter to now in the right ureteral vesicular junction. She has mild hydroureteronephrosis. She also has a 5 mm stone in her bladder, which she most likely passed. Other stones are nonobstructing and unchanged. 07/29/19 10:09 I discussed this case with Dr. Morley and the patient will be started to cover pneumonia. She was also wheezing after her first DuoNeb treatment. She will receive a second dose of DuoNeb. 07/29/19 10:57 Patient's lung sounds have improved. I will give her a dose of Solu-Medrol and she will be sent home with prednisone. She will be started on Ceftin ear and follow-up with her primary care provider in regards to the pneumonia. I will add Toradol for pain relief. She will follow-up with urology in regards to this visit. Very low suspicion for an infected kidney stone, as there is no leukocytes in her urine. Follow-up precautions were given. Verbal discharge instructions were given to the patient. They verbalized understanding. They are stable for discharge. - Vital Signs Vital signs: Temp Pulse Resp BP Pulse Ox 97.6 F 105 H 18 144/87 H 97 07/29/19 08:08 07/29/19 08:08 07/29/19 08:08 07/29/19 08:08 07/29/19 08:08 - Laboratory Result Diagrams: 07/29/19 09:00 07/29/19 09:00 Laboratory results interpreted by me: 07/29/19 07/29/19 07/29/19 08:22 09:00 09:00 WBC 19.3 H Lymph % (Auto) 11.1 L Absolute Neuts (auto) 15.1 H Absolute Eos (auto) 0.7 H Seg Neutrophils % 78.6 H Glucose 118 H Urine Blood LARGE H Discharge - Discharge Clinical Impression: Calculus of proximal right ureter, Renal calculi Pneumonia Qualifiers: Pneumonia type: due to unspecified organism Laterality: right Lung location: unspecified part of lung Qualified Code(s): J18.9 - Pneumonia, unspecified organism Condition: Stable Disposition: HOME, SELF-CARE Additional Instructions: You were seen today in the emergency department for right back pain. You still have kidney stones. One stone has passed into the bladder and another is moving down to your bladder. You can continue the pain medication you are on. You are also being placed on Toradol to help with pain relief. You also are being treated for pneumonia. Take your antibiotics as prescribed. You are also being placed on prednisone, steroid to help with your breathing. Please take this medication with your current prednisone dosage. Follow-up with urology and your primary care provider. If you have worsening symptoms, please return to the emergency department. Prescriptions: Ketorolac Tromethamine [Toradol 10 mg Tablet] 10 mg PO Q6HP PRN #20 tablet PRN Reason: Prednisone [Deltasone 20 mg Tablet] 2 tab PO DAILY 5 Days #10 tablet Cefdinir [Omnicef 300 mg Capsule] 1 cap PO BID 5 Days #10 capsule Referrals: [facility] [Provider Group] - Follow up in 3-5 days SHAKEEL ESTES MD [Primary Care Provider] - Follow up in 3-5 days
[2019-07-29] MEDS ORDERED: NORMAL SALINE 1000 ML 1,000 ML IV ONE (08:42)
[2019-07-29] MEDS ORDERED: KETOROLAC TROMETHAMINE INJ/PF 30 MG/1 ML SDV IV ONE (08:42)
[2019-07-29 09:09] LABS: ABSOLUTE BASOPHILS # (AUTO) 0.1 10^3/uL (0.0-0.2); ABSOLUTE EOSINOPHILS # (AUTO) 0.7 10^3/uL (0.0-0.6); ABSOLUTE LYMPHOCYTES (AUTO) 2.1 10^3/uL (0.5-4.7); ABSOLUTE MONOCYTES (AUTO) 1.1 10^3/uL (0.1-1.4); ABSOLUTE NEUT (AUTO) 15.1 10^3/uL (1.7-8.2); BASOPHILS % (AUTO) 0.6 % (0-2); EOSINOPHILS % (AUTO) 3.8 % (0-6); HEMATOCRIT 37.6 % (36.0-47.0); HEMOGLOBIN 12.1 g/dL (12.0-15.5); LYMPHOCYTES % (AUTO) 11.1 % (13-45); MEAN CORPUSCULAR HEMOGLOBIN 28.4 pg (27.0-33.4); MEAN CORPUSCULAR HGB CONC 32.3 g/dL (32.0-36.0); MEAN CORPUSCULAR VOLUME 88 fl (80-97); MONOCYTES % (AUTO) 5.9 % (3-13); PLATELET COUNT 374 10^3/uL (150-450); RED BLOOD COUNT 4.27 10^6/uL (3.72-5.28); RED CELL DISTRIBUTION WIDTH 13.9 % (11.5-14.0); SEGMENTED NEUTROPHILS % (AUTO) 78.6 % (42-78); TOTAL CELLS COUNTED % (AUTO) 100 %; WHITE BLOOD COUNT 19.3 10^3/uL (4.0-10.5)
[2019-07-29 09:27] LABS: ALBUMIN 3.9 g/dL (3.5-5.0); ALKALINE PHOSPHATASE 85 U/L (38-126); ANION GAP 8 (5-19); ASPARTATE AMINO TRANSFERASE 30 U/L (14-36); BILIRUBIN,DIRECT 0.3 mg/dL (0.0-0.4); BILIRUBIN,TOTAL 0.9 mg/dL (0.2-1.3); BLOOD UREA NITROGEN 16 mg/dL (7-20); CALCIUM 8.8 mg/dL (8.4-10.2); CARBON DIOXIDE 26 mmol/L (22-30); CHLORIDE 104 mmol/L (98-107); GLUCOSE 118 mg/dL (75-110); POTASSIUM 4.7 mmol/L (3.6-5.0); TOTAL PROTEIN 6.8 g/dL (6.3-8.2)
--- NOTE | 2019-07-29 09:37 | RADIOLOGY REPORT (SQ) ---
EXAM DESCRIPTION: CT CHEST WITHOUT; CT ABD/PELVIS NO ORAL OR IV COMPLETED DATE/TIME: 07/29/2019 9:15 am REASON FOR STUDY: right flank pain COMPARISON: 07/23/2019 TECHNIQUE: CT scan of the chest performed without intravenous contrast using helical scanning techni que. Images reviewed with lung, soft tissue and bone windows. Reconstructed coronal and sagittal MPR images reviewed. All images stored on PACS. CT scan of the abdomen and pelvis performed without intravenous contrast and withoutoral contrast usi ng helical scanning technique with dynamic intravenous contrast injection. Images reviewed with lung , soft tissue and bone windows. Reconstructed coronal and sagittal MPR images reviewed. All images stored on PACS. All CT scanners at this facility use dose modulation, iterative reconstruction, and/or weight based d osing when appropriate to reduce radiation dose to as low as reasonably achievable (ALARA). [facility]: Dose Right [facility]: CareDose [facility]: Dose Right [facility]: Teradose 4D [facility]: Smart Rosalind RADIATION DOSE: CT Rad equipment meets quality standard of care and radiation dose reduction techniq ues were employed. CTDIvol: 20.8 mGy. DLP: 1507 mGy-cm. mGy. LIMITATIONS: No technical limitations. FINDINGS: CHEST: AXILLAE: No adenopathy. CHEST WALL: No masses. No subcutaneous air. LUNGS: Mild patchy centrilobular ground-glass nodules within the right middle lobe, largest measuring 10 mm (series 4, image 39), stable from recent prior. No additional airspace disease. No significa nt pleural effusion. No pneumothorax. No discrete solid masses. THYROID: No masses or significant asymmetry. HILAR AND MEDIASTINAL STRUCTURES: No identified masses or abnormal nodes. AORTA AND GREAT VESSELS: No aneurysm. HEART: No pericardial effusion. HARDWARE AND LIFELINES: None. BONES: No significant finding. Mild dextroconvex thoracic curvature. OTHER: No other significant finding. ABDOMEN AND PELVIS: LIVER: Normal size. No masses. No dilated ducts. SPLEEN: Normal size. No focal lesions. PANCREAS: No masses. No significant calcifications. No adjacent inflammation or peripancreatic flui d collections. Pancreatic duct not dilated. GALLBLADDER: No identified stones by CT criteria. No inflammatory changes to suggest cholecystitis. ADRENAL GLANDS: No significant masses or asymmetry. RIGHT KIDNEY AND URETER: No solid masses. Assessment limited by lack of IV contrast. There has been progression of the previously seen 4 mm right ureteral stone canal at the level of the ureteral vesic ular junction. There is persistent mild fullness of the collecting system upstream. Additional nono bstructing stones within the lower pole measuring up to 8 mm and conglomerate are stable. LEFT KIDNEY AND URETER: No solid masses. Assessment limited by lack of IV contrast. Unchanged puncta te nonobstructing stones. No hydronephrosis. AORTA AND VESSELS: No aneurysm. RETROPERITONEUM: No retroperitoneal adenopathy, hemorrhage or masses. APPENDIX: Normal. LARGE AND SMALL BOWEL: No dilatation. No masses. No wall thickening. ABDOMINAL WALL: No hernia masses. Diastases recti. Obesity. PERITONEAL CAVITY: No free air. No free fluid. No peritoneal implants or masses. PELVIS: 2 stones within the urinary bladder, largest measuring 5 mm. No focal bladder wall thickenin g. No free pelvic fluid or adenopathy. BONES: No acute bony abnormality. No suspicious osseous lesions. OTHER: No other significant finding. IMPRESSION: 1. Mild patchy centrilobular ground-glass nodules within the right middle lobe, likely infectious/ inflammatory. Recommend follow-up to ensure resolution. 2. Progression of the previously seen 4 mm stone within the right ureter which now resides at the le mis of the right ureteral vesicular junction. Mild persistent upstream hydroureteronephrosis. Addit ional 5 mm bladder stone noted. 3. Additional unchanged bilateral nonobstructing renal stones. TECHNICAL DOCUMENTATION: JOB ID: [id number] Quality ID # [id number]: Final reports with documentation of one or more dose reduction techniques (e.g., Au tomated exposure control, adjustment of the mA and/or kV according to patient size, use of iterative reconstruction technique) 2010 [employer]- All Rights Reserved Reading location - IP/workstation name: [email or web address]-
[2019-07-29] MEDS ORDERED: IPRATROPIUM/ALBUTEROL 0.5-2.5 MG/3 ML AMPUL NEB ONE ×2 (09:42→10:09)
[2019-07-29] MEDS ORDERED: CEFTRIAXONE 2 GM/D5W RTU 2 GM/50 ML RTUPB IV ONE (10:05)
[2019-07-29] MEDS ORDERED: AZITHROMYCIN 250 MG TABLET PO ONE (10:05)
[2019-07-29] MEDS ORDERED: METHYLPREDNISOLONE INJ 125 MG/2 ML SDV IV ONE (10:45)
[2019-07-29 11:22] VITALS: BP 129/69
== END 2019-07-29 11:27 | disposition home or self-care (01) ==
LOC: ER 08:04
DX: N20.2 Calculus of kidney with calculus of ureter (principal); J18.9 Pneumonia, unspecified organism; R10.9 Unspecified abdominal pain; Z87.442 Personal history of urinary calculi; Z88.2 Allergy status to sulfonamides; Z90.710 Acquired absence of both cervix and uterus
CPT/HCPCS: 36415; 85025; 80053; 81001; 71250; 74176; J2930; J1885; J7030; J7620; J0696; 94640; 96361; 96365; 96375; 99284

== ENCOUNTER 2019-09-10 07:10 | Observation (INO) | payer SELFPAY ==
[2019-09-10 07:50] LABS: VENOUS BLOOD BASE EXCESS -1.1 mmol/L; VENOUS BLOOD HCO3 24.5 mmol/L (20-32); VENOUS BLOOD PCO2 44.2 mmHg (35-63); VENOUS BLOOD PH 7.36 (7.30-7.42)
[2019-09-10 07:52] LABS: HEMATOCRIT 38.5 % (36.0-47.0); HEMOGLOBIN 12.1 g/dL (12.0-15.5); MEAN CORPUSCULAR HEMOGLOBIN 28.2 pg (27.0-33.4); MEAN CORPUSCULAR HGB CONC 31.4 g/dL (32.0-36.0); MEAN CORPUSCULAR VOLUME 90 fl (80-97); PLATELET COUNT 332 10^3/uL (150-450); RED BLOOD COUNT 4.29 10^6/uL (3.72-5.28); RED CELL DISTRIBUTION WIDTH 14.5 % (11.5-14.0); WHITE BLOOD COUNT 13.4 10^3/uL (4.0-10.5)
[2019-09-10 08:09] LABS: ALBUMIN 3.7 g/dL (3.5-5.0); ALKALINE PHOSPHATASE 103 U/L (38-126); ANION GAP 8 (5-19); ASPARTATE AMINO TRANSFERASE 15 U/L (14-36); BILIRUBIN,DIRECT 0.1 mg/dL (0.0-0.4); BILIRUBIN,TOTAL 0.5 mg/dL (0.2-1.3); BLOOD UREA NITROGEN 10 mg/dL (7-20); CALCIUM 8.9 mg/dL (8.4-10.2); CARBON DIOXIDE 24 mmol/L (22-30); CHLORIDE 108 mmol/L (98-107); GLUCOSE 142 mg/dL (75-110); POTASSIUM 3.8 mmol/L (3.6-5.0)
--- NOTE | 2019-09-10 08:39 | RADIOLOGY REPORT (SQ) ---
EXAM DESCRIPTION: CHEST 2 VIEWS COMPLETED DATE/TIME: 09/10/2019 7:42 am REASON FOR STUDY: inspir/expir wheezing, difficulty breathing COMPARISON: 02/11/2019 EXAM PARAMETERS: NUMBER OF VIEWS: two views TECHNIQUE: Digital Frontal and Lateral radiographic views of the chest acquired. RADIATION DOSE: NA LIMITATIONS: none FINDINGS: LUNGS AND PLEURA: No opacities, masses or pneumothorax. No pleural effusion. MEDIASTINUM AND HILAR STRUCTURES: No masses or contour abnormalities. HEART AND VASCULAR STRUCTURES: Heart normal size. No evidence for failure. BONES: No acute findings. HARDWARE: None in the chest. OTHER: No other significant finding. IMPRESSION: No acute abnormality of the lungs. No focal airspace opacity. TECHNICAL DOCUMENTATION: JOB ID: [id number] [employer]- All Rights Reserved Reading location - IP/workstation name: [email or web address]
[2019-09-10] MEDS ORDERED: IPRATROPIUM BROMIDE 0.02% NEB 0.5 MG/2.5 ML AMPUL NEB ONE (09:14)
[2019-09-10] MEDS ORDERED: ALBUTEROL SULFATE 0.083% NEB 2.5 MG/3 ML AMPUL NEB ONE (09:15)
--- NOTE | 2019-09-10 09:20 | ER Document Report ---
ED General - General Chief Complaint: Breathing Difficulty Stated Complaint: RESPIRATORY DISTRESS Time Seen by Provider: 09/10/19 09:05 Primary Care Provider: SHAKEEL ESTES MD [Primary Care Provider] - Follow up as needed TRAVEL OUTSIDE OF THE [place] IN LAST 30 DAYS: No - HPI Notes: Patient presents with acute onset of asthma exacerbation. Patient is a Dr. Estes patient. She states she has not had any recent cough congestion fevers or illnesses. This was sudden onset that occurred this morning. She has been taking her inhaled asthma medications. She is on prednisone daily 20 mg for several years due to her severe asthma. She is run out of her steroids for the last 3 days. She was given a 125 Solu-Medrol in route and 3 duo nebs prior to arrival. - Related Data Allergies/Adverse Reactions: Sulfa (Sulfonamide Antibiotics) Allergy (Verified 09/10/19 07:12) Past Medical History - Social History Smoking Status: Never Smoker Family History: Reviewed & Not Pertinent Patient has suicidal ideation: No Patient has homicidal ideation: No - Past Medical History Cardiac Medical History: Denies: Hx Coronary Artery Disease, Hx Heart Attack, Hx Hypertension Pulmonary Medical History: Reports: Hx Asthma - Hospitalized January & February 2015, Hx Pneumonia - 3-4 yrs ago Denies: Hx Bronchitis, Hx COPD, Hx Intubation, Hx Tuberculosis Neurological Medical History: Denies: Hx Cerebrovascular Accident, Hx Seizures Renal/ Medical History: Reports: Hx Kidney Stones. Denies: Hx Peritoneal Dialysis Musculoskeletal Medical History: Denies Hx Arthritis Past Surgical History: Reports: Hx Breast Surgery - left breast lump removed, Hx Genitourinary Surgery - Bladder tuck, Hx Hysterectomy, Hx Orthopedic Surgery - RIGHT ANKLE ORIF, Hx Tubal Ligation. Denies: Hx Pacemaker - Immunizations Hx Diphtheria, Pertussis, Tetanus Vaccination: Yes Hx Pneumococcal Vaccination: 02/07/15 Review of Systems - Review of Systems Constitutional: No symptoms reported EENT: No symptoms reported Cardiovascular: No symptoms reported Respiratory: See HPI Gastrointestinal: No symptoms reported Genitourinary: No symptoms reported Female Genitourinary: No symptoms reported Musculoskeletal: No symptoms reported Skin: No symptoms reported Hematologic/Lymphatic: No symptoms reported Neurological/Psychological: No symptoms reported Physical Exam - Vital signs Vitals: Temp 98.5 F 09/10/19 07:10 - General General appearance: Appears well, Alert - HEENT Head: Normocephalic, Atraumatic Conjunctiva: Normal Pupils: PERRL - Respiratory Respiratory status: No respiratory distress, Other - No stridor no wheezing audibly. Patient has diffuse mild wheezing with good air movement on auscultation with prolonged and expiratory breath phase - Cardiovascular Rhythm: Tachycardia Heart sounds: Normal auscultation Murmur: No Course - Re-evaluation Re-evalutation: 09/10/19 09:19 Overall well-appearing patient she is tachycardic but she had 3 nebulizer treatments. Will provide another duo nebulizer treatment and reevaluate. Steroids of Brendon been provided. She is saturating at 94% on room air at this time. 09/10/19 11:41 Patient has adequate air movement but continues to have wheezing and delayed and expiratory breath phase. She is also tachycardic and saturating approximate 91% do not feel safe for discharge will be admitted to the hospital for further breathing treatments and steroids to help with her asthma exacerbation. - Vital Signs Vital signs: Temp Pulse Resp BP Pulse Ox 98.4 F 119 H 18 112/69 94 09/10/19 07:13 09/10/19 09:00 09/10/19 10:30 09/10/19 10:17 09/10/19 10:30 - Laboratory Result Diagrams: 09/10/19 07:39 09/10/19 07:39 Laboratory results interpreted by me: 09/10/19 09/10/19 07:39 07:39 WBC 13.4 H MCHC 31.4 L RDW 14.5 H Chloride 108 H Glucose 142 H Discharge - Discharge Clinical Impression: Respiratory distress Acute asthma exacerbation Qualifiers: Asthma severity: unspecified severity Asthma persistence: unspecified Qualified Code(s): J45.901 - Unspecified asthma with (acute) exacerbation Condition: Good Disposition: ADMITTED INPATIENT Admitting Provider: Surinder (Hospitalist) Unit Admitted: Telemetry Referrals: SHAKEEL ESTES MD [Primary Care Provider] - Follow up as needed
[2019-09-10] MEDS ORDERED: ACETAMINOPHEN 325 MG TABLET PO PRN (12:08)
[2019-09-10] MEDS ORDERED: OXYCODONE-ACETAMINOPHEN 5-325 MG TABLET PO PRN (12:08)
[2019-09-10] MEDS ORDERED: ONDANSETRON HCL INJ/PF 4 MG/2 ML SDV IV PRN (12:08)
[2019-09-10] MEDS ORDERED: ZOLPIDEM TARTRATE 5 MG TABLET PO PRN (12:08)
[2019-09-10] MEDS ORDERED: MAG HYDROX/AL HYDROX/SIMETH SUSP 30 ML UDCUP PO PRN (12:08)
[2019-09-10] MEDS ORDERED: DEXTROSE 40% GEL 15 GM TUBE PO PRN ×2 (12:16)
[2019-09-10] MEDS ORDERED: GLUCAGON,HUMAN RECOMB 1 MG INJ IM PRN (12:16)
[2019-09-10] MEDS ORDERED: DEXTROSE 50%-WATER 25 GM/50 ML DISP.SYRIN IV PRN ×2 (12:16)
--- NOTE | 2019-09-10 12:27 | PDOC H&P ---
History of Present Illness Admission Date/PCP: 09/10/2019 No primary care Patient complains of: Shortness of breath, cough, wheeze History of Present Illness: ALEK RENNER is a 44 year old female with long-standing history of asthma and steroid dependency presents to the ER with an acute exacerbation of her asthma. Patient states she ran out of steroids several days ago and has not seen her primary care practitioner as she was fired from his service. Patient does have Symbicort at home although she does not take it daily and had run out of albuterol recently. She had no treatment prior to arrival other than home albuterol therapy and all active is aggravating factor. Past Medical History Cardiac Medical History: Denies: Coronary Artery Disease, Myocardial Infarction, Hypertension Pulmonary Medical History: Reports: Asthma - Hospitalized January & February 2015, Pneumonia - 3-4 yrs ago Denies: Bronchitis, Chronic Obstructive Pulmonary Disease (COPD), Intubation, Tuberculosis Neurological Medical History: Denies: Seizures Musculoskeltal Medical History: Denies: Arthritis Hematology: Reports: Anemia - Currently Past Surgical History Past Surgical History: Reports: Hysterectomy, Orthopedic Surgery - RIGHT ANKLE ORIF, Tubal Ligation Denies: Pacemaker Social History Information Source: Patient Lives with: Family Smoking Status: Never Smoker Frequency of Alcohol Use: None Hx Recreational Drug Use: No Drugs: None Hx Prescription Drug Abuse: No - Advance Directive Resuscitation Status: Full Code Family History Family History: Other - Patient is adopted and does not know her true family Parental Family History Reviewed: Yes Children Family History Reviewed: Yes Sibling(s) Family History Reviewed.: Yes Medication/Allergy Home Medications: Albuterol Sulfate [Ventolin 0.083% Neb 2.5 mg/3 mL Ampul] 1 vial NEB Q4HP PRN 02/09/19 Prednisone [Deltasone 20 mg Tablet] 20 mg PO DAILY 02/09/19 Tiotropium [place] [Spiriva Handihaler 5 Cap/Kit (18 Mcg/Cap)] 1 cap IH Q12 02/09/19 Doxycycline Hyclate [Vibramycin 100 mg Tablet] 100 mg PO Q12 #14 tablet 02/13/19 Oxycodone HCl/Acetaminophen [Percocet 5-325 mg Tablet] 1 tab PO ASDIR PRN #15 tablet 07/23/19 Tamsulosin HCl [Flomax 0.4 mg Cap.sr] 0.4 mg PO DAILY #7 cap.sr.24h 07/23/19 Cefdinir [Omnicef 300 mg Capsule] 1 cap PO BID 5 Days #10 capsule 07/29/19 Ketorolac Tromethamine [Toradol 10 mg Tablet] 10 mg PO Q6HP PRN #20 tablet 07/29/19 Prednisone [Deltasone 20 mg Tablet] 2 tab PO DAILY 5 Days #10 tablet 07/29/19 Allergies/Adverse Reactions: Sulfa (Sulfonamide Antibiotics) Allergy (Verified 09/10/19 07:12) Review of Systems Constitutional: ABSENT: chills, fever(s), headache(s), weight gain, weight loss Eyes: ABSENT: visual disturbances Ears: ABSENT: hearing changes Cardiovascular: ABSENT: chest pain, dyspnea on exertion, edema, orthropnea, palpitations Respiratory: PRESENT: cough, dyspnea, other - Wheeze. ABSENT: hemoptysis Gastrointestinal: ABSENT: abdominal pain, constipation, diarrhea, hematemesis, hematochezia, nausea, vomiting Genitourinary: ABSENT: dysuria, hematuria Musculoskeletal: ABSENT: joint swelling Integumentary: ABSENT: rash, wounds Neurological: ABSENT: abnormal gait, abnormal speech, confusion, dizziness, focal weakness, syncope Psychiatric: ABSENT: anxiety, depression, homidical ideation, suicidal ideation Endocrine: ABSENT: cold intolerance, heat intolerance, polydipsia, polyuria Hematologic/Lymphatic: ABSENT: easy bleeding, easy bruising Physical Exam Vital Signs: Temp Pulse Resp BP Pulse Ox 98.4 F 119 H 17 133/76 H 96 09/10/19 07:13 09/10/19 09:00 09/10/19 12:01 09/10/19 12:01 09/10/19 12:01 Intake & Output 09/09/19 09/10/19 09/11/19 06:59 06:59 06:59 Weight 262 kg General appearance: PRESENT: no acute distress, well-developed, well-nourished Head exam: PRESENT: atraumatic, normocephalic Eye exam: PRESENT: conjunctiva pink, EOMI, PERRLA. ABSENT: scleral icterus Ear exam: PRESENT: normal external ear exam Mouth exam: PRESENT: moist, tongue midline Neck exam: ABSENT: carotid bruit, JVD, lymphadenopathy, thyromegaly Respiratory exam: PRESENT: decreased breath sounds, symmetrical, tachypnea, unlabored, wheezes. ABSENT: rales, rhonchi Cardiovascular exam: PRESENT: RRR, tachycardia. ABSENT: diastolic murmur, rubs, systolic murmur Pulses: PRESENT: normal dorsalis pedis pul Vascular exam: PRESENT: normal capillary refill GI/Abdominal exam: PRESENT: normal bowel sounds, soft. ABSENT: distended, guarding, mass, organolmegaly, rebound, tenderness Rectal exam: PRESENT: deferred Extremities exam: PRESENT: full ROM. ABSENT: calf tenderness, clubbing, pedal edema Neurological exam: PRESENT: alert, awake, oriented to person, oriented to place, oriented to time, oriented to situation, CN II-XII grossly intact. ABSENT: motor sensory deficit Psychiatric exam: PRESENT: appropriate affect, normal mood. ABSENT: homicidal ideation, suicidal ideation Skin exam: PRESENT: dry, intact, warm. ABSENT: cyanosis, rash Results Laboratory Results: 09/10/19 07:39 09/10/19 07:39 09/10/19 09/10/19 09/10/19 07:39 07:39 07:39 WBC 13.4 H RBC 4.29 Hgb 12.1 Hct 38.5 MCV 90 MCH 28.2 MCHC 31.4 L RDW 14.5 H Plt Count 332 VBG pH 7.36 VBG pCO2 44.2 VBG HCO3 24.5 VBG Base Excess -1.1 Sodium 140.4 Potassium 3.8 Chloride 108 H Carbon Dioxide 24 Anion Gap 8 BUN 10 Creatinine 0.77 Est GFR ( Amer) > 60 Glucose 142 H Calcium 8.9 Total Bilirubin 0.5 AST 15 Alkaline Phosphatase 103 Total Protein 7.0 Albumin 3.7 Impressions: Chest X-Ray 09/10/19 00:00 IMPRESSION: No acute abnormality of the lungs. No focal airspace opacity. Assessment and Plan - Diagnosis (1) Chronic asthma with acute exacerbation Is this a current diagnosis for this admission?: Yes Plan: 09/10/2019-admit to [facility]. Albuterol nebs every 4 with ipratropium bromide twice daily. Pulmicort inhaled 0.5 mg twice daily. Singulair 10 mg p.o. daily. Patient reports she takes 20 mg of prednisone which is been taking for her disease for 8 years. She would like to be weaned off of steroids if possible. Given the chronicity and recurrent exacerbations I am placing patient on theophylline 300 mg p.o. daily. Solu-Medrol 40 mill grams IV 3 times daily. We will continue to follow make adjustments based on patient needs. (2) Hyperglycemia Is this a current diagnosis for this admission?: Yes Plan: 09/10/2019-A1c. Carbohydrate controlled diet with GILMA and at bedtime sliding scale insulin. This could be secondary to chronic steroid use will make change Medicare based on needs. (3) Morbid obesity Is this a current diagnosis for this admission?: Yes Plan: 09/10/2019-educated on benefits of dietary modifications. Will obtain a lipid panel and treat as appropriate (4) Tachycardia Is this a current diagnosis for this admission?: Yes Plan: 09/10/2019-unknown etiology. Will obtain TSH T4. Place patient on Coreg 12.5 mg p.o. twice daily and titrate to effect to keep heart rate less than 100. (5) Leukocytosis Is this a current diagnosis for this admission?: Yes Plan: 09/10/2019-most likely reactional to steroid use. Will follow - Time Time Spent with patient: 35 or more minutes
[2019-09-10] MEDS ORDERED: MONTELUKAST SODIUM 10 MG TABLET PO ONE (12:30)
[2019-09-10] MEDS ORDERED: THEOPHYLLINE ANHYDROUS 300 MG TAB.SR.12H PO ONE (12:30)
[2019-09-10] MEDS: METHYLPREDNISOLONE INJ 40 MG/1 ML SDV IV SCH ×2 (13:19→21:05)
[2019-09-10] MEDS: ALBUTEROL SULFATE 0.083% NEB 2.5 MG/3 ML AMPUL NEB SCH ×3 (13:20→20:03)
[2019-09-10] MEDS ORDERED: INFLUENZA QUAD (6MOS+) 2019-20 VAC 0.5 ML SYR IM ONE (16:05)
[2019-09-10] MEDS: INSULIN REG, HUMAN 100 UNIT/ML 3 ML VIAL (PYX) SUBCUT SCH ×2 (16:58→21:46)
[2019-09-10] MEDS ORDERED: METOPROLOL TARTRATE PF/INJ 5 MG/5 ML SDV IV ONE (19:00)
[2019-09-10] MEDS: BUDESONIDE NEB 0.5 MG/2 ML AMPUL NEB SCH (20:03)
[2019-09-10] MEDS: IPRATROPIUM BROMIDE 0.02% NEB 0.5 MG/2.5 ML AMPUL NEB SCH (20:03)
[2019-09-10] MEDS: CARVEDILOL 12.5 MG TABLET PO SCH (21:05)
[2019-09-11] MEDS: ALBUTEROL SULFATE 0.083% NEB 2.5 MG/3 ML AMPUL NEB SCH ×3 (00:06→07:47)
[2019-09-11] MEDS: METHYLPREDNISOLONE INJ 40 MG/1 ML SDV IV SCH (05:23)
[2019-09-11 06:02] LABS: HEMATOCRIT 38.3 % (36.0-47.0); HEMOGLOBIN 12.3 g/dL (12.0-15.5); MEAN CORPUSCULAR HEMOGLOBIN 28.8 pg (27.0-33.4); MEAN CORPUSCULAR VOLUME 90 fl (80-97); PLATELET COUNT 366 10^3/uL (150-450); RED BLOOD COUNT 4.26 10^6/uL (3.72-5.28); RED CELL DISTRIBUTION WIDTH 14.3 % (11.5-14.0); WHITE BLOOD COUNT 23.9 10^3/uL (4.0-10.5)
[2019-09-11 06:14] LABS: ANION GAP 10 (5-19); BLOOD UREA NITROGEN 13 mg/dL (7-20); CALCIUM 9.7 mg/dL (8.4-10.2); CARBON DIOXIDE 19 mmol/L (22-30); CHLORIDE 108 mmol/L (98-107); CHOLESTEROL 298.63 mg/dL (0-200); GLUCOSE 205 mg/dL (75-110); PHOSPHORUS 3.4 mg/dL (2.5-4.5); POTASSIUM 4.6 mmol/L (3.6-5.0); TRIGLYCERIDES 67 mg/dL (<150)
[2019-09-11 06:53] LABS: DIRECT LDL 219 mg/dL (<100)
[2019-09-11] MEDS: BUDESONIDE NEB 0.5 MG/2 ML AMPUL NEB SCH (07:47)
[2019-09-11] MEDS: IPRATROPIUM BROMIDE 0.02% NEB 0.5 MG/2.5 ML AMPUL NEB SCH (07:47)
[2019-09-11] MEDS: INSULIN REG, HUMAN 100 UNIT/ML 3 ML VIAL (PYX) SUBCUT SCH (08:10)
[2019-09-11 08:13] LABS: FREE T4 (FREE THYROXINE) 1.02 ng/dL (0.78-2.19)
[2019-09-11 08:27] LABS: THYROID STIMULATING HORMONE 0.39 uIU/mL (0.47-4.68)
--- NOTE | 2019-09-11 08:54 | PDOC DISCHARGE SUMMARY ---
Impression - Admit/DC Date/PCP Admission Date/Primary Care Provider: 09/10/19 12:58 SHAKEEL ESTES MD Discharge Date: 09/11/19 - Discharge Diagnosis (1) Chronic asthma with acute exacerbation Is this a current diagnosis for this admission?: Yes (2) Hyperglycemia Is this a current diagnosis for this admission?: Yes (3) Morbid obesity Is this a current diagnosis for this admission?: Yes (4) Tachycardia Is this a current diagnosis for this admission?: Yes (5) Leukocytosis Is this a current diagnosis for this admission?: Yes (6) Dyslipidemia Is this a current diagnosis for this admission?: Yes (7) Hyperthyroidism Is this a current diagnosis for this admission?: Yes (8) Type 2 diabetes mellitus with obesity Is this a current diagnosis for this admission?: Yes - Additional Information Resuscitation Status: Full Code Discharge Activity: Activity As Tolerated Referrals: SHAKEEL ESTES MD [Primary Care Provider] - Follow up as needed Prescriptions: Carvedilol [Coreg 12.5 mg Tablet] 12.5 mg PO Q12 #60 tablet Carvedilol [Coreg 12.5 mg Tablet] 12.5 mg PO Q12 #60 tablet Prednisone [Deltasone 20 mg Tablet] 20 mg PO DAILY #30 Ipratropium/Albuterol Sulfate [Duoneb 3 ml Ampul] 3 ml NEB BID #90 vial.neb Atorvastatin Calcium [Lipitor 40 mg Tablet] 40 mg PO QHS #30 tablet Metformin HCl 500 mg PO BID #60 tablet Methimazole [Tapazole 5 mg Tablet] 5 mg PO DAILY #30 tablet Theophylline Anhydrous [Surya-Dur 300 mg Tab.sr] 300 mg PO DAILY #30 tab.sr.12h Home Medications: Albuterol Sulfate [Proair HFA Inhalation Aerosol 8.5 gm MDI] 2 puff IH ASDIR PRN 09/10/19 Atorvastatin Calcium [Lipitor 40 mg Tablet] 40 mg PO QHS #30 tablet 09/11/19 Carvedilol [Coreg 12.5 mg Tablet] 12.5 mg PO Q12 #60 tablet 09/11/19 Carvedilol [Coreg 12.5 mg Tablet] 12.5 mg PO Q12 #60 tablet 09/11/19 Ipratropium/Albuterol Sulfate [Duoneb 3 ml Ampul] 3 ml NEB BID #90 vial.neb 09/11/19 Metformin HCl 500 mg PO BID #60 tablet 09/11/19 Methimazole [Tapazole 5 mg Tablet] 5 mg PO DAILY #30 tablet 09/11/19 Prednisone [Deltasone 20 mg Tablet] 20 mg PO DAILY #30 09/11/19 Theophylline Anhydrous [Surya-Dur 300 mg Tab.sr] 300 mg PO DAILY #30 tab.sr.12h 09/11/19 History of Present Illiness History of Present Illness: ALEK RENNER is a 44 year old female with long-standing history of asthma and steroid dependency presents to the ER with an acute exacerbation of her asthma. Patient states she ran out of steroids several days ago and has not seen her primary care practitioner as she was fired from his service. Patient does have Symbicort at home although she does not take it daily and had run out of albuterol recently. She had no treatment prior to arrival other than home albuterol therapy and all active is aggravating factor. Hospital Course Hospital Course: Patient was in the ER with an acute exacerbation of chronic asthma. Patient was placed on IMCU given duo nebs, theophylline, IV steroids. Patient showed gradual improvement. Patient is able speak in full sentences and has good room air saturations. Further work-up of patient found she has hyperthyroidism for which I placed on methimazole 5 mill grams p.o. daily, Coreg 12.5 mg p.o. twice daily. Patient also found to have type 2 diabetes mellitus for which I placed her on metformin 500 mg p.o. twice daily. Patient had dyslipidemia with a LDL of 219 which I gave her Lipitor 40 mg p.o. daily. I will educate patient on dietary recommendations have her follow-up in clinic in 1 week. Physical Exam Vital Signs: Temp Pulse Resp BP Pulse Ox 97.5 F 101 H 18 118/61 99 09/11/19 07:56 09/11/19 07:56 09/11/19 07:56 09/11/19 07:56 09/11/19 07:56 Intake & Output 09/10/19 09/11/19 09/12/19 06:59 06:59 06:59 Intake Total 240 Output Total 200 Balance 40 Weight 120.4 kg General appearance: PRESENT: no acute distress, well-developed, well-nourished Head exam: PRESENT: atraumatic, normocephalic Eye exam: PRESENT: conjunctiva pink, EOMI, PERRLA. ABSENT: scleral icterus Ear exam: PRESENT: normal external ear exam Mouth exam: PRESENT: moist, tongue midline Neck exam: ABSENT: carotid bruit, JVD, lymphadenopathy, thyromegaly Respiratory exam: PRESENT: clear to auscultation lucrecia. ABSENT: rales, rhonchi, wheezes Cardiovascular exam: PRESENT: RRR. ABSENT: diastolic murmur, rubs, systolic murmur Pulses: PRESENT: normal dorsalis pedis pul Vascular exam: PRESENT: normal capillary refill GI/Abdominal exam: PRESENT: normal bowel sounds, soft. ABSENT: distended, guarding, mass, organolmegaly, rebound, tenderness Rectal exam: PRESENT: deferred Extremities exam: PRESENT: full ROM. ABSENT: calf tenderness, clubbing, pedal edema Neurological exam: PRESENT: alert, awake, oriented to person, oriented to place, oriented to time, oriented to situation, CN II-XII grossly intact. ABSENT: motor sensory deficit Psychiatric exam: PRESENT: appropriate affect, normal mood. ABSENT: homicidal ideation, suicidal ideation Skin exam: PRESENT: dry, intact, warm. ABSENT: cyanosis, rash Results Laboratory Results: WBC 23.9 10^3/uL (4.0-10.5) H 09/11/19 05:10 RBC 4.26 10^6/uL (3.72-5.28) 09/11/19 05:10 Hgb 12.3 g/dL (12.0-15.5) 09/11/19 05:10 Hct 38.3 % (36.0-47.0) 09/11/19 05:10 MCV 90 fl (80-97) 09/11/19 05:10 MCH 28.8 pg (27.0-33.4) 09/11/19 05:10 MCHC 32.0 g/dL (32.0-36.0) 09/11/19 05:10 RDW 14.3 % (11.5-14.0) H 09/11/19 05:10 Plt Count 366 10^3/uL (150-450) 09/11/19 05:10 VBG pH 7.36 (7.30-7.42) 09/10/19 07:39 VBG pCO2 44.2 mmHg (35-63) 09/10/19 07:39 VBG HCO3 24.5 mmol/L (20-32) 09/10/19 07:39 VBG Base Excess -1.1 mmol/L 09/10/19 07:39 Sodium 136.5 mmol/L (137-145) L 09/11/19 05:10 Potassium 4.6 mmol/L (3.6-5.0) 09/11/19 05:10 Chloride 108 mmol/L (98-107) H 09/11/19 05:10 Carbon Dioxide 19 mmol/L (22-30) L 09/11/19 05:10 Anion Gap 10 (5-19) 09/11/19 05:10 BUN 13 mg/dL (7-20) 09/11/19 05:10 Creatinine 0.69 mg/dL (0.52-1.25) 09/11/19 05:10 Est GFR ( Amer) > 60 (>60) 09/11/19 05:10 Est GFR (MDRD) Non-Af > 60 (>60) 09/11/19 05:10 Glucose 205 mg/dL (75-110) H 09/11/19 05:10 POC Glucose 185 mg/dL (70-110) H 09/11/19 07:55 Hemoglobin A1c % 7.2 % (4.7-6.0) H 09/11/19 05:10 Calcium 9.7 mg/dL (8.4-10.2) 09/11/19 05:10 Phosphorus 3.4 mg/dL (2.5-4.5) 09/11/19 05:10 Magnesium 2.4 mg/dL (1.6-2.3) H 09/11/19 05:10 Total Bilirubin 0.5 mg/dL (0.2-1.3) 09/10/19 07:39 Direct Bilirubin 0.1 mg/dL (0.0-0.4) 09/10/19 07:39 Neonat Total Bilirubin Not Reportable 09/10/19 07:39 Neonat Direct Bilirubin Not Reportable 09/10/19 07:39 Neonat Indirect Bili Not Reportable 09/10/19 07:39 AST 15 U/L (14-36) 09/10/19 07:39 ALT 20 U/L (<35) 09/10/19 07:39 Alkaline Phosphatase 103 U/L (38-126) 09/10/19 07:39 Total Protein 7.0 g/dL (6.3-8.2) 09/10/19 07:39 Albumin 3.7 g/dL (3.5-5.0) 09/10/19 07:39 Triglycerides 67 mg/dL (<150) 09/11/19 05:10 Cholesterol 298.63 mg/dL (0-200) H 09/11/19 05:10 LDL Cholesterol Direct 219 mg/dL (<100) H 09/11/19 05:10 VLDL Cholesterol 13.0 mg/dL (10-31) 09/11/19 05:10 HDL Cholesterol 65 mg/dL (>40) 09/11/19 05:10 TSH 0.39 uIU/mL (0.47-4.68) L 09/11/19 05:10 Free T4 1.02 ng/dL (0.78-2.19) 09/11/19 05:10 Impressions: Chest X-Ray 09/10/19 00:00 IMPRESSION: No acute abnormality of the lungs. No focal airspace opacity. Plan Time Spent: Greater than 30 Minutes Stroke Is this a Stroke Patient?: No Acute Heart Failure - Is this a Heart Failure Patient?: No
[2019-09-11] MEDS: CARVEDILOL 12.5 MG TABLET PO SCH (09:51)
[2019-09-11 10:24] VITALS: BP 131/65
== END 2019-09-11 11:00 | disposition home or self-care (01) ==
LOC: ER 07:10 → EH 12:58 → 3N 15:21
PROVIDERS: ADMIT Hospitalist; ATTEND Hospitalist
DX: J45.901 Unspecified asthma with (acute) exacerbation (principal); E11.65 Type 2 diabetes mellitus with hyperglycemia; E66.01 Morbid (severe) obesity due to excess calories; R00.0 Tachycardia, unspecified; D72.829 Elevated white blood cell count, unspecified; E78.5 Hyperlipidemia, unspecified; E05.90 Thyrotoxicosis, unspecified without thyrotoxic crisis or storm; E66.9 Obesity, unspecified; F19.20 Other psychoactive substance dependence, uncomplicated; Z79.899 Other long term (current) drug therapy; Z87.01 Personal history of pneumonia (recurrent); Z23 Encounter for immunization
CPT/HCPCS: 94640 ×4; 99285; 96374; 36415 ×2; 84439; 82962 ×2; 83735; 84100; 84443; 85027 ×2; 80048; 80053; 83036; 82803; 80061; 71046; 90686; G0378 ×3; J2920 ×2; J3490 ×4; J1815 ×2

== ENCOUNTER 2019-11-24 22:19 | Emergency (ER) | payer SELFPAY ==
[2019-11-25] MEDS ORDERED: IPRATROPIUM/ALBUTEROL 0.5-2.5 MG/3 ML AMPUL NEB ONE (00:10)
--- NOTE | 2019-11-25 00:13 | ER Document Report ---
ED Medical Screen (RME) - General Chief Complaint: Shortness Of Breath Stated Complaint: SHORTNESS OF BREATH Time Seen by Provider: 11/25/19 00:09 Notes: Patient is a 44-year-old female with a history of hyperthyroidism, high cholesterol, diabetes, hypertension, asthma who presents to the emergency department with a chief complaint of shortness of breath. Patient reports she has had some sinus drainage and shortness of breath with wheezing that started this morning and gradually got worse throughout the day. Patient reports she has used her albuterol rescue inhaler without much relief. Patient reports she does not smoke. Patient reports low-grade fever and chills. Patient also reports having chest pain. TRAVEL OUTSIDE OF THE [place] IN LAST 30 DAYS: No - Related Data Allergies/Adverse Reactions: Sulfa (Sulfonamide Antibiotics) Allergy (Verified 11/24/19 23:58) Home Medications: ALBUTEROL. THYROID. HEART RATE Past Medical History - Social History Family history: Reviewed & Not Pertinent - Past Medical History Cardiac Medical History: Denies: Hx Coronary Artery Disease, Hx Heart Attack, Hx Hypertension Pulmonary Medical History: Reports: Hx Asthma - Hospitalized January & February 2015, Hx Pneumonia - 3-4 yrs ago Denies: Hx Bronchitis, Hx COPD, Hx Intubation, Hx Tuberculosis Neurological Medical History: Denies: Hx Cerebrovascular Accident, Hx Seizures Renal/ Medical History: Reports: Hx Kidney Stones. Denies: Hx Peritoneal Dialysis Musculoskeltal Medical History: Denies Hx Arthritis Past Surgical History: Reports: Hx Breast Surgery - left breast lump removed, Hx Genitourinary Surgery - Bladder tuck, Hx Hysterectomy, Hx Orthopedic Surgery - RIGHT ANKLE ORIF, Hx Tubal Ligation. Denies: Hx Pacemaker - Immunizations Hx Diphtheria, Pertussis, Tetanus Vaccination: Yes Physical Exam - Vital signs Vitals: Temp Pulse Resp BP Pulse Ox 100.5 F H 113 H 22 H 141/90 H 93 11/24/19 22:34 11/24/19 22:34 11/24/19 22:34 11/24/19 22:34 11/24/19 22:34 - Respiratory Notes: Diffuse expiratory wheezing noted throughout. Course - Re-evaluation Re-evalutation: 11/25/19 00:12 Patient has had a low-grade temp of 100.5 as well as a slight tachycardia. We will give a DuoNeb, check basic labs and obtain a chest x-ray to rule out pneumonia. I have greeted and performed a rapid initial assessment of this patient. A comprehensive ED assessment and evaluation of the patient, analysis of test results and completion of the medical decision making process will be conducted by additional ED providers. - Vital Signs Vital signs: Temp Pulse Resp BP Pulse Ox 100.5 F H 113 H 22 H 141/90 H 93 11/24/19 22:34 11/24/19 22:34 11/24/19 22:34 11/24/19 22:34 11/24/19 22:34
[2019-11-25 00:47] LABS: HEMATOCRIT 39.9 % (36.0-47.0); HEMOGLOBIN 12.6 g/dL (12.0-15.5); MEAN CORPUSCULAR HEMOGLOBIN 28.8 pg (27.0-33.4); MEAN CORPUSCULAR HGB CONC 31.7 g/dL (32.0-36.0); MEAN CORPUSCULAR VOLUME 91 fl (80-97); PLATELET COUNT 348 10^3/uL (150-450); RED BLOOD COUNT 4.39 10^6/uL (3.72-5.28); RED CELL DISTRIBUTION WIDTH 14.5 % (11.5-14.0); WHITE BLOOD COUNT 18.5 10^3/uL (4.0-10.5)
[2019-11-25 00:55] LABS: ALKALINE PHOSPHATASE 104 U/L (38-126); ANION GAP 11 (5-19); ASPARTATE AMINO TRANSFERASE 16 U/L (14-36); BILIRUBIN,DIRECT 0.2 mg/dL (0.0-0.4); BILIRUBIN,TOTAL 0.5 mg/dL (0.2-1.3); BLOOD UREA NITROGEN 12 mg/dL (7-20); CALCIUM 9.6 mg/dL (8.4-10.2); CARBON DIOXIDE 23 mmol/L (22-30); CHLORIDE 104 mmol/L (98-107); GLUCOSE 229 mg/dL (75-110); POTASSIUM 4.5 mmol/L (3.6-5.0); TOTAL PROTEIN 7.1 g/dL (6.3-8.2)
--- NOTE | 2019-11-25 00:59 | RADIOLOGY REPORT (SQ) ---
EXAM DESCRIPTION: [facility]: XR CHEST 2 VIEWS Views: 2 CLINICAL HISTORY: 44 years Female, chest pain, cough, wheezing COMPARISON: 09/10/2019 FINDINGS: There is no definite acute infiltrate, although there is a very subtle slightly increased density in the right upper lung field is new since the prior exam. No pneumothorax or pleural effusion. Cardiomediastinal silhouette is within normal limits. Bony structures are unremarkable for age. IMPRESSION: 1. No definite infiltrate. A subtle density in the right upper lobe could be a mild/early focal pneumonia, or an area of mild subsegmental atelectasis. Please correlate with clinical findings.
[2019-11-25 01:14] LABS: ABSOLUTE LYMPHOCYTES# (MANUAL) 0.7 10^3/uL (0.5-4.7); ABSOLUTE MONOCYTES # (MANUAL) 0.2 10^3/uL (0.1-1.4); BASOPHILS % (MANUAL) 0 % (0-2); EOSINOPHILS % (MANUAL) 1 % (0-6); LYMPHOCYTES % (MANUAL) 4 % (13-45); MONOCYTES % (MANUAL) 1 % (3-13); SEGMENTED NEUTROPHILS % (MAN) 94 % (42-78); TOTAL CELLS COUNTED 100
[2019-11-25 01:15] LABS: ANISOCYTOSIS SLIGHT; OVALOCYTES SLIGHT; PLATELET COMMENT ADEQUATE; POIKILOCYTOSIS SLIGHT; TOXIC GRANULATION 1+
[2019-11-25 02:43] VITALS: BP 135/79
--- NOTE | 2019-11-25 05:38 | EKG REPORT ---
SEVERITY:- OTHERWISE NORMAL ECG - SINUS TACHYCARDIA : Confirmed by: Oksana Shen MD 25-Nov-2019 05:37:12
== END 2019-11-25 05:08 | disposition left against medical advice (07) ==
LOC: ER 22:19
DX: J45.909 Unspecified asthma, uncomplicated (principal); R06.02 Shortness of breath; R09.89 Other specified symptoms and signs involving the circulatory and respiratory systems; R50.9 Fever, unspecified; R00.0 Tachycardia, unspecified; E05.90 Thyrotoxicosis, unspecified without thyrotoxic crisis or storm; E11.9 Type 2 diabetes mellitus without complications; Z79.899 Other long term (current) drug therapy; Z88.2 Allergy status to sulfonamides; Z87.01 Personal history of pneumonia (recurrent); Z53.20 Procedure and treatment not carried out because of patient's decision for unspecified reasons
CPT/HCPCS: 93005; 94640; 99281; 36415; 85025; 80053; 84484; 71046; 93010; J7620

== ENCOUNTER 2020-01-31 23:26 | Inpatient (IN) | payer SELFPAY ==
[2020-01-31] MEDS ORDERED: METHYLPREDNISOLONE INJ 125 MG/2 ML SDV IV ONE (23:33)
[2020-01-31] MEDS ORDERED: IPRATROPIUM/ALBUTEROL 0.5-2.5 MG/3 ML AMPUL NEB ONE (23:33)
[2020-01-31] MEDS: ALBUTEROL SULFATE 0.083% NEB 2.5 MG/3 ML AMPUL NEB SCH ×2 (23:40→23:52)
[2020-01-31] MEDS: MAGNESIUM SULFATE/D5W 1 GM/100 ML RTUPB IV SCH (23:51)
--- NOTE | 2020-01-31 23:51 | ER Document Report ---
ED Respiratory Problem - General Chief Complaint: Asthma Exacerbation Stated Complaint: ASTHMA Time Seen by Provider: 01/31/20 23:37 Mode of Arrival: Ambulatory Information source: Patient Notes: Patient is a 44-year-old female with history of asthma presenting in an acute asthma exacerbation. The nursing staff tells me that patient's O2 sats were in the low 80s when she arrived at the front door. At the time of my initial evaluation she is on 6 L of O2 via nasal cannula and she has a DuoNeb going. Patient is alert, oriented, her oxygen saturation is currently 95%, she is speaking in complete sentences. She denies any fever or recent coughing. She has not had any recent travel. She has never been intubated for her asthma. TRAVEL OUTSIDE OF THE [place] IN LAST 30 DAYS: No - Related Data Allergies/Adverse Reactions: Sulfa (Sulfonamide Antibiotics) Allergy (Verified 11/24/19 23:58) Past Medical History - General Information source: Patient - Social History Smoking Status: Never Smoker Frequency of alcohol use: None Drug Abuse: None Family History: Other - Patient is adopted and does not know her true family - Past Medical History Cardiac Medical History: Denies: Hx Coronary Artery Disease, Hx Heart Attack, Hx Hypertension Pulmonary Medical History: Reports: Hx Asthma - Hospitalized January & February 2015, Hx Pneumonia - 3-4 yrs ago Denies: Hx Bronchitis, Hx COPD, Hx Intubation, Hx Tuberculosis Neurological Medical History: Denies: Hx Cerebrovascular Accident, Hx Seizures Renal/ Medical History: Reports: Hx Kidney Stones. Denies: Hx Peritoneal Dialysis Musculoskeletal Medical History: Denies Hx Arthritis Past Surgical History: Reports: Hx Breast Surgery - left breast lump removed, Hx Genitourinary Surgery - Bladder tuck, Hx Hysterectomy, Hx Orthopedic Surgery - RIGHT ANKLE ORIF, Hx Tubal Ligation. Denies: Hx Pacemaker - Immunizations Hx Diphtheria, Pertussis, Tetanus Vaccination: Yes Hx Pneumococcal Vaccination: 02/07/15 Review of Systems - Review of Systems Constitutional: denies: Fever EENT: No symptoms reported Cardiovascular: No symptoms reported Respiratory: Short of breath, Wheezing Gastrointestinal: No symptoms reported Genitourinary: No symptoms reported Female Genitourinary: No symptoms reported Musculoskeletal: No symptoms reported Skin: No symptoms reported Hematologic/Lymphatic: No symptoms reported Neurological/Psychological: No symptoms reported Physical Exam - Vital signs Vitals: Temp 97.8 F 01/31/20 23:26 - Notes Notes: PHYSICAL EXAMINATION: GENERAL: Well-nourished and in moderate distress. HEAD: Atraumatic, normocephalic. EYES: Pupils equal round and reactive to light, extraocular movements intact, conjunctiva are normal. ENT: Nares patent, oropharynx clear without exudates. Moist mucous membranes. NECK: Normal range of motion, supple without lymphadenopathy LUNGS: Inspiratory and expiratory wheezes noted bilaterally. Increased work of breathing. HEART: Regular rate and rhythm without murmurs ABDOMEN: Soft, nontender, nondistended abdomen. No guarding, no rebound. No masses appreciated. Female : deferred Musculoskeletal: Normal range of motion, no pitting or edema. No cyanosis. NEUROLOGICAL: Cranial nerves grossly intact. Normal speech. Normal sensory, motor exams PSYCH: Normal mood, normal affect. SKIN: Warm, Dry, normal turgor, no rashes or lesions noted. Course - Re-evaluation Re-evalutation: 01/31/20 23:49 Patient is on nasal cannula oxygen and has a DuoNeb going. She has inspiratory and expiratory wheezes throughout. Additional orders for IV magnesium initiated. On reevaluation patient has improved however she still has significant expiratory wheezes. Nursing staff ambulated the patient and she dropped to 87% on room air. Patient does not wear oxygen at home. She is still tachypneic. Will consult for admission. 02/01/20 02:30 Patient accepted for admission by Dr. Collado. - Vital Signs Vital signs: Temp Pulse Resp BP Pulse Ox 97.8 F 20 141/86 H 93 01/31/20 23:26 02/01/20 02:31 02/01/20 02:31 02/01/20 02:31 Discharge - Discharge Clinical Impression: Acute asthma exacerbation Qualifiers: Asthma severity: severe Asthma persistence: persistent Qualified Code(s): J45.5 1 - Severe persistent asthma with (acute) exacerbation Condition: Fair Disposition: ADMITTED INPATIENT Admitting Provider: [facility] (Hospitalist) Unit Admitted: Medical Floor
[2020-02-01] MEDS: MAGNESIUM SULFATE/D5W 1 GM/100 ML RTUPB IV SCH (00:21)
--- NOTE | 2020-02-01 00:43 | RADIOLOGY REPORT (SQ) ---
EXAM DESCRIPTION: X-RAY CHEST TWO VIEWS CLINICAL HISTORY: 44 years, Female, sob COMPARISON: None. FINDINGS: PA and lateral chest radiographs were performed at 0034 hours on 02/01/2020. The lungs are well expanded and clear. The costophrenic sulci are sharp. The cardiac silhouette, hilar regions, trachea, soft tissues and bony structures are unremarkable aside from degenerative changes. IMPRESSION: No acute cardiopulmonary disease.
[2020-02-01] MEDS ORDERED: IPRATROPIUM/ALBUTEROL 0.5-2.5 MG/3 ML AMPUL NEB ONE (00:52)
[2020-02-01] MEDS ORDERED: TEMAZEPAM 15 MG CAPSULE PO PRN (02:58)
[2020-02-01] MEDS ORDERED: RINGERS SOLUTION,LACTATED 1,000 ML IV PRN (02:58)
[2020-02-01] MEDS ORDERED: ONDANSETRON HCL INJ/PF 4 MG/2 ML SDV IV PRN (02:58)
[2020-02-01] MEDS ORDERED: MAGNESIUM HYDROXIDE SUSP 30 ML UDCUP PO PRN (02:58)
[2020-02-01] MEDS ORDERED: MAG HYDROX/AL HYDROX/SIMETH SUSP 30 ML UDCUP PO PRN (02:58)
[2020-02-01] MEDS ORDERED: GUAIFENESIN SYRP 200 MG/10 ML UDC PO PRN (03:06)
[2020-02-01] MEDS ORDERED: ACETAMINOPHEN 325 MG TABLET PO PRN (03:06)
[2020-02-01] MEDS ORDERED: LORAZEPAM INJ 2 MG/1 ML VIAL IV PRN (03:06)
[2020-02-01] MEDS ORDERED: HYDRALAZINE HCL INJ/PF 20 MG/1 ML SDV IV PRN (03:06)
[2020-02-01] MEDS: LEVALBUTEROL HCL NEB 0.63 MG/3 ML AMPUL NEB PRN ×2 (05:01→12:45)
--- NOTE | 2020-02-01 05:24 | PDOC H&P ---
History of Present Illness Admission Date/PCP: 02/01/2020 02:25 No local PCP Patient complains of: Dyspnea History of Present Illness: ALEK RENNER is a 44 year old female who presented to the emergency room with a 1 day history of dyspnea. She admits initially developing mild tightness in her breathing causing dyspnea on the late evening of 01/30/2020. Despite use of her nebulized regimen and vigilant taking of her medications, she progressively worsened and her response to her home nebulizer treatments became negligible thus causing her to present to the hospital for assistance with her now severe dyspnea. She admits the sudden onset of severe dyspnea associated with wheezing and air hunger and accompanied by the requirement for use of accessory muscles of respiration in order to breathe. She denies other associated or accompanying signs and symptoms. She admits numerous prior similar episodes due to her chronic severe extrinsic asthma. She has not identified any aggravating or ameliorating factors for her asthma. In the emergency room she was found to be in acute hypoxic respiratory failure and was treated with supplemental oxygen via nasal cannula and given intravenous Solu-Medrol as well as several nebulizer therapy treatments. She responded in part to the treatment with an improvement however she was unable to tolerate any exertion without supplemental oxygen which she does not have available at home. Patient was subsequently admitted to the hospital for further evaluation and treatment. Past Medical History Cardiac Medical History: Reports: Hyperlipidema - A familial hyperlipidemia variant is strongly suspected, Hypertension Denies: Atrial Fibrillation, Congestive Heart Failure, Coronary Artery Disease, DVT, Myocardial Infarction, Pulmonary Embolism Pulmonary Medical History: Reports: Asthma - Severe chronic extrinsic asthma, Pneumonia, Respiratory Failure Denies: Bronchitis, Chronic Obstructive Pulmonary Disease (COPD), Intubation, Tuberculosis EENT Medical History: Denies: Cataracts, Ears - Hearing aids Neurological Medical History: Denies: Hemorrhagic CVA, Ischemic CVA, Seizures Endocrine Medical History: Reports: Diabetes Mellitus Type 2 - Borderline diabetes mellitus type 2 per patient, Hyperthyroidism, Obesity Denies: Diabetes Mellitus Type 1, Hypothyroidism Renal/ Medical History: Reports: Nephrolithiasis Denies: Chronic Kidney Disease Malignancy Medical History: Reports: None GI Medical History: Reports: Gastroesophageal Reflux Disease Denies: Cirrhosis, Crohn's Disease, Hepatitis, Hiatal Hernia, Peptic Ulcer Disease, Ulcerative Colitis Musculoskeltal Medical History: Denies: Arthritis Skin Medical History: Denies: Eczema, Psoriasis Psychiatric Medical History: Denies: Alcohol Dependency, Substance Abuse, Tobacco Dependency Traumatic Medical History: Reports: None Hematology: Reports: Anemia Denies: Bleeding Tendencies Infectious Medical History: Reports: None Past Surgical History Past Surgical History: Reports: Hysterectomy, Orthopedic Surgery - Right ankle: open reduction with internal fixation, Tubal Ligation Social History Information Source: Patient Lives with: Family Smoking Status: Never Smoker Electronic Cigarette use?: No Frequency of Alcohol Use: None Hx Recreational Drug Use: No Drugs: None Hx Prescription Drug Abuse: No - Advance Directive Resuscitation Status: Full Code Surrogate healthcare decision maker:: Anali Jordan Family History Family History: None Family History: The patient was adopted as an and is not aware of any of her biologic family medical history Parental Family History Reviewed: No Children Family History Reviewed: No Sibling(s) Family History Reviewed.: No Medication/Allergy Home Medications: Albuterol Sulfate [Proair HFA Inhalation Aerosol 8.5 gm MDI] 2 puff IH ASDIR PRN 09/10/19 Carvedilol [Coreg 12.5 mg Tablet] 12.5 mg PO Q12 #60 tablet 09/11/19 Methimazole [Tapazole 5 mg Tablet] 5 mg PO DAILY #30 tablet 09/11/19 Prednisone [Deltasone 20 mg Tablet] 20 mg PO DAILY #30 09/11/19 Atorvastatin Calcium [Lipitor 40 mg Tablet] 20 mg PO QHS 02/01/20 Glipizide [Glocotrol 5 Mg Tablet] 5 mg PO DAILY 02/01/20 Ipratropium/Albuterol Sulfate [Duoneb 3 ml Ampul] 3 ml NEB BIDP PRN 02/01/20 Theophylline Anhydrous [Surya-Dur 300 mg Tab.sr] 300 mg PO BID 02/01/20 Allergies/Adverse Reactions: Sulfa (Sulfonamide Antibiotics) Allergy (Verified 11/24/19 23:58) Review of Systems Constitutional: ABSENT: chills, fever(s) Eyes: ABSENT: visual disturbances, other - Eye pain Ears: ABSENT: hearing changes, other - Ear pain Nose, Mouth, and Throat: ABSENT: headache(s), sore throat Cardiovascular: PRESENT: dyspnea on exertion. ABSENT: chest pain, edema, orthropnea, palpitations Respiratory: PRESENT: as per HPI, dyspnea - Severe, other - Severe wheezing. ABSENT: cough Gastrointestinal: ABSENT: abdominal pain, constipation, diarrhea, nausea, vomiting Genitourinary: ABSENT: dysuria, hematuria Musculoskeletal: ABSENT: back pain, joint swelling, muscle weakness Integumentary: ABSENT: pruritus, rash Neurological: ABSENT: confusion, convulsions, focal weakness, memory loss, syncope Psychiatric: ABSENT: anxiety, depression Endocrine: ABSENT: cold intolerance, heat intolerance, polydipsia, polyphagia, polyuria Hematologic/Lymphatic: ABSENT: easy bleeding, easy bruising Allergic/Immunologic: PRESENT: seasonal rhinorrhea Physical Exam Vital Signs: Temp Pulse Resp BP Pulse Ox 97.8 F 20 124/74 94 01/31/20 23:26 02/01/20 01:30 02/01/20 01:30 02/01/20 01:30 Intake & Output 01/30/20 01/31/20 02/01/20 23:59 23:59 23:59 Intake Total 150 Balance 150 Weight 122.5 kg General appearance: PRESENT: no acute distress, cooperative, morbidly obese, other - On supplemental oxygen via nasal cannula while at rest at the time my evaluation Head exam: PRESENT: atraumatic, normocephalic Eye exam: PRESENT: conjunctiva pink, other - Xanthelasmas of the medial superior eyelid bilaterally are noted. ABSENT: conjunctival injection, scleral icterus Ear exam: PRESENT: normal external ear exam. ABSENT: bleeding, drainage Mouth exam: PRESENT: neck supple. ABSENT: dry mucosa Neck exam: ABSENT: thyromegaly, tracheal deviation Respiratory exam: PRESENT: prolonged expiratory phas - Prolonged expiratory phase noted throughout all soto, symmetrical, tachypnea - Tachypnea noted, wheezes - Expiratory wheezes noted throughout all soto Cardiovascular exam: PRESENT: RRR. ABSENT: clicks, gallop, rubs Pulses: PRESENT: normal radial pulses, normal dorsalis pedis pul Vascular exam: PRESENT: normal capillary refill. ABSENT: pallor GI/Abdominal exam: PRESENT: normal bowel sounds, soft. ABSENT: tenderness Rectal exam: PRESENT: deferred Extremities exam: ABSENT: joint swelling, pedal edema Musculoskeletal exam: ABSENT: deformity, dislocation Neurological exam: PRESENT: alert, oriented to person, oriented to place, oriented to time, oriented to situation, CN II-XII grossly intact. ABSENT: motor sensory deficit Psychiatric exam: PRESENT: anxious, normal mood Skin exam: PRESENT: dry, intact, warm, other - Xanthelasmas as noted above.. ABSENT: jaundice, rash, urticaria Results Impressions: Chest X-Ray 01/31/20 23:33 IMPRESSION: No acute cardiopulmonary disease. Assessment and Plan - Diagnosis (1) Chronic asthma with acute exacerbation Qualifiers: Asthma severity: severe Asthma persistence: persistent Qualified Code(s): J45.51 - Severe persistent asthma with (acute) exacerbation Is this a current diagnosis for this admission?: Yes (2) Acute respiratory failure with hypoxia Is this a current diagnosis for this admission?: Yes (3) Hyperthyroidism Is this a current diagnosis for this admission?: Yes (4) Hypertension Qualifiers: Hypertension type: unspecified Qualified Code(s): I10 - Essential (primary) hypertension Is this a current diagnosis for this admission?: Yes (5) Familial hyperlipidemia Is this a current diagnosis for this admission?: Yes (6) Type 2 diabetes mellitus with obesity Is this a current diagnosis for this admission?: Yes (7) Morbid obesity Is this a current diagnosis for this admission?: Yes - Plan Summary Summary: Patient is admitted to the medical floor where she will receive routine supportive and symptomatic cares. She will receive an aggressive pulmonary toilet utilizing nebulized Xopenex, Atrovent and Pulmicort. She will be continued on IV Solu-Medrol 40 mg every 6 hours x 3 doses to complete her initial burst therapy dosing. She will receive supplemental oxygen via nasal cannula and/or advanced airway pressure support devices such as BiPAP or CPAP as needed to maintain an adequate oxygen saturation. Patient will be continued on her usual medications, if appropriate, once her medication list has been verified and reconciled. A hemoglobin A1c, lipid profile and thyroid profile will be obtained. CBCs, metabolic profiles and magnesium levels will be obtained as appropriate. A registered dietitian consultation will be obtained to aid the patient in the management of her diabetes and obesity. Patient will be placed on a diabetic and cardiac restricted diet. - Time Time Spent with patient: 25-34 minutes Medications reviewed and adjusted accordingly: Yes Anticipated discharge: Home - Inpatient Certification Based on my medical assessment, after consideration of the patient's comorbidities, presenting symptoms, or acuity I expect that the services needed warrant INPATIENT care.: Yes I certify that my determination is in accordance with my understanding of Medicare's requirements for reasonable and necessary INPATIENT services [42 CFR 412.3e].: Yes Medical Necessity: Significant Comorbidiites Make Outpatient Treatment Too Risky, Need Close Monitoring Due to Risk of Patient Decompensation, Need for Nebulizer Therapy and Monitoring of Response, Risk of Complication if Not Cared For in Hospital
[2020-02-01] MEDS ORDERED: GLUCAGON,HUMAN RECOMB 1 MG INJ IM PRN (05:25)
[2020-02-01] MEDS ORDERED: DEXTROSE 50%-WATER 25 GM/50 ML DISP.SYRIN IV PRN ×2 (05:25)
[2020-02-01] MEDS ORDERED: DEXTROSE 40% GEL 15 GM TUBE PO PRN ×3 (05:25→13:34)
[2020-02-01] MEDS: METHYLPREDNISOLONE INJ 40 MG/1 ML SDV IV SCH ×3 (05:41→17:54)
[2020-02-01] MEDS: HEPARIN SOD (PORCINE) 5,000 UNIT/ML 1 ML VIAL SUBCUT SCH ×3 (05:42→22:37)
[2020-02-01 07:15] LABS: CHOLESTEROL 227.58 mg/dL (0-200); TRIGLYCERIDES 72 mg/dL (<150)
[2020-02-01 07:26] LABS: DIRECT LDL 139 mg/dL (<100)
[2020-02-01 07:32] LABS: FREE T3 3.23 pg/mL (2.77-5.27)
[2020-02-01 07:46] LABS: THYROID STIMULATING HORMONE 0.46 uIU/mL (0.47-4.68)
[2020-02-01] MEDS: IPRATROPIUM BROMIDE 0.02% NEB 0.5 MG/2.5 ML AMPUL NEB SCH ×2 (07:56→16:00)
[2020-02-01] MEDS: BUDESONIDE NEB 0.5 MG/2 ML AMPUL NEB SCH ×2 (07:56→21:20)
[2020-02-01] MEDS: LEVALBUTEROL HCL NEB 1.25 MG/3 ML AMPUL NEB SCH ×2 (07:56→16:00)
[2020-02-01] MEDS: INSULIN REG, HUMAN 100 UNIT/ML 3 ML VIAL (PYX) SUBCUT SCH ×2 (08:04→13:10)
[2020-02-01] MEDS: FAMOTIDINE 20 MG TABLET PO SCH ×2 (09:42→22:36)
[2020-02-01] MEDS: DOCUSATE SODIUM 100 MG CAPSULE PO SCH ×2 (09:42→17:54)
[2020-02-01] MEDS: METHIMAZOLE 5 MG TABLET PO SCH (14:31)
[2020-02-01] MEDS: INSULIN LISPRO 100 UNIT/ML 3 ML VIAL SUBCUT SCH ×2 (16:46→22:36)
[2020-02-01] MEDS ORDERED: ATORVASTATIN CALCIUM 20 MG TABLET PO SCH (22:00)
[2020-02-01] MEDS: THEOPHYLLINE ANHYDROUS 300 MG TAB.SR.12H PO SCH (22:36)
[2020-02-01] MEDS: CARVEDILOL 12.5 MG TABLET PO SCH (22:36)
[2020-02-02] MEDS: LEVALBUTEROL HCL NEB 1.25 MG/3 ML AMPUL NEB SCH ×2 (00:35→08:24)
[2020-02-02] MEDS: IPRATROPIUM BROMIDE 0.02% NEB 0.5 MG/2.5 ML AMPUL NEB SCH ×2 (00:35→08:24)
[2020-02-02] MEDS: HEPARIN SOD (PORCINE) 5,000 UNIT/ML 1 ML VIAL SUBCUT SCH (05:07)
[2020-02-02 07:38] LABS: HEMATOCRIT 38.1 % (36.0-47.0); HEMOGLOBIN 12.3 g/dL (12.0-15.5); MEAN CORPUSCULAR HEMOGLOBIN 28.7 pg (27.0-33.4); MEAN CORPUSCULAR HGB CONC 32.2 g/dL (32.0-36.0); MEAN CORPUSCULAR VOLUME 89 fl (80-97); RED BLOOD COUNT 4.28 10^6/uL (3.72-5.28); RED CELL DISTRIBUTION WIDTH 14.9 % (11.5-14.0); WHITE BLOOD COUNT 25.1 10^3/uL (4.0-10.5)
[2020-02-02] MEDS ORDERED: GLIPIZIDE 5 MG TABLET PO SCH (08:00)
[2020-02-02 08:07] LABS: ANION GAP 11 (5-19); BLOOD UREA NITROGEN 19 mg/dL (7-20); CALCIUM 9.5 mg/dL (8.4-10.2); CARBON DIOXIDE 23 mmol/L (22-30); CHLORIDE 103 mmol/L (98-107); GLUCOSE 206 mg/dL (75-110); POTASSIUM 4.3 mmol/L (3.6-5.0)
[2020-02-02] MEDS: BUDESONIDE NEB 0.5 MG/2 ML AMPUL NEB SCH (08:24)
[2020-02-02] MEDS: INSULIN LISPRO 100 UNIT/ML 3 ML VIAL SUBCUT SCH ×2 (08:27→12:08)
[2020-02-02 08:31] LABS: PLATELET COUNT 368 10^3/uL (150-450)
[2020-02-02] MEDS: DOCUSATE SODIUM 100 MG CAPSULE PO SCH (09:56)
[2020-02-02] MEDS ORDERED: PREDNISONE 20 MG TABLET PO SCH (10:00)
[2020-02-02] MEDS: CARVEDILOL 12.5 MG TABLET PO SCH (10:01)
[2020-02-02] MEDS: THEOPHYLLINE ANHYDROUS 300 MG TAB.SR.12H PO SCH (10:01)
[2020-02-02] MEDS: METHIMAZOLE 5 MG TABLET PO SCH (10:02)
[2020-02-02] MEDS: FAMOTIDINE 20 MG TABLET PO SCH (10:02)
--- NOTE | 2020-02-02 10:51 | PDOC DISCHARGE SUMMARY ---
Impression - Admit/DC Date/PCP Admission Date/Primary Care Provider: 02/01/20 02:59 Discharge Date: 02/02/20 - Discharge Diagnosis (1) Chronic asthma with acute exacerbation Is this a current diagnosis for this admission?: Yes (2) Acute respiratory failure with hypoxia Is this a current diagnosis for this admission?: Yes (3) Familial hyperlipidemia Is this a current diagnosis for this admission?: Yes (4) Hypertension Is this a current diagnosis for this admission?: Yes (5) Hyperthyroidism Is this a current diagnosis for this admission?: Yes (6) Morbid obesity Is this a current diagnosis for this admission?: Yes (7) Type 2 diabetes mellitus with obesity Is this a current diagnosis for this admission?: Yes - Assessment Summary: . - Additional Information Resuscitation Status: Full Code Discharge Diet: Regular Discharge Activity: Slowly Increase Activity Referrals: [facility] [Outside] (CLINIC IS NOT SCHEDULING ANY IN CLINIC APPTS. OF NOW. INFORMATION WAS GIVING TO CLINIC STAFF AND THEY WILL CALL PATIENT.) Prescriptions: Prednisone [Deltasone 20 mg Tablet] 40 mg PO DAILY 4 Days tablet Budesonide/Formoterol Fumarate [Symbicort Hfa 160-4.5 Mcg Inhaler 6 gm] 1 puff IH Q12 #1 inhaler Home Medications: Albuterol Sulfate [Proair HFA Inhalation Aerosol 8.5 gm MDI] 2 puff IH Q4HP PRN 09/10/19 Methimazole [Tapazole 5 mg Tablet] 5 mg PO DAILY #30 tablet 09/11/19 Albuterol Sulfate [Ventolin 0.083% Neb 2.5 mg/3 mL Ampul] 1 vial NEB Q4 02/01/20 Atorvastatin Calcium [Lipitor 40 mg Tablet] 20 mg PO QHS 02/01/20 Carvedilol [Coreg 12.5 mg Tablet] 12.5 mg PO BID 02/01/20 Glipizide [Glucotrol 5 mg Tablet] 5 mg PO DAILY 02/01/20 Theophylline Anhydrous [Surya-Dur 300 mg Tab.sr] 300 mg PO BID 02/01/20 Budesonide/Formoterol Fumarate [Symbicort Hfa 160-4.5 Mcg Inhaler 6 gm] 1 puff IH Q12 #1 inhaler 02/02/20 Prednisone [Deltasone 20 mg Tablet] 40 mg PO DAILY 4 Days tablet 02/02/20 History of Present Illiness History of Present Illness: ALEK RENNER is a 44 year old female who presented to the emergency room with a 1 day history of dyspnea. She admits initially developing mild tightness in her breathing causing dyspnea on the late evening of 01/30/2020. Despite use of her nebulized regimen and vigilant taking of her medications, she progressively worsened and her response to her home nebulizer treatments became negligible thus causing her to present to the hospital for assistance with her now severe dyspnea. She admits the sudden onset of severe dyspnea associated with wheezing and air hunger and accompanied by the requirement for use of accessory muscles of respiration in order to breathe. She denies other associated or accompanying signs and symptoms. She admits numerous prior similar episodes due to her chronic severe extrinsic asthma. She has not identified any aggravating or ameliorating factors for her asthma. In the emergency room she was found to be in acute hypoxic respiratory failure and was treated with supplemental oxygen via nasal cannula and given intravenous Solu-Medrol as well as several nebulizer therapy treatments. She responded in part to the treatment with an improvement however she was unable to tolerate any exertion without supplemental oxygen which she does not have available at home. Patient was subsequently admitted to the hospital for further evaluation and treatment. Hospital Course Hospital Course: Patient on presentation was noted to be hypoxic even dropping to 90% on 3 L nasal cannula. Physical exam revealed significant wheezing. She was also noted to be tachypneic with some work of breathing and placed on the BiPAP. Chest x- ray was normal. Patient was started on treatment for acute asthma exacerbation and placed on frequent nebulizer treatments, IV Solu-Medrol which was later transitioned to oral prednisone. Her breathing improved significantly and she was able to be taken off the BiPAP yesterday morning. Patient's breathing and respiratory status continues to improve and today patient has been able to come off all oxygen supplement and is maintaining adequate sats on room air when examined in the room this morning. Patient also states that she was able to walk around and she did not feel short of breath when doing so. Patient endorses that she has her albuterol nebulizer solution and her nebulizer machine which have instructed her to use about 4 times a day for the next 5 days and then go back to using on an as-needed basis. Patient is being discharged with prednisone to be taken for 4 days as well as Symbicort inhaler. Physical Exam Vital Signs: Temp Pulse Resp BP Pulse Ox 98.0 F 112 H 18 109/63 92 02/02/20 07:52 02/02/20 08:27 02/02/20 08:27 02/02/20 07:52 02/02/20 08:27 Intake & Output 02/01/20 02/02/20 02/03/20 06:59 06:59 06:59 Intake Total 150 2277 Balance 150 2277 Weight 121.6 kg 123.5 kg 123.5 kg General appearance: PRESENT: no acute distress, cooperative, morbidly obese. ABSENT: mild distress, severe distress Neck exam: ABSENT: JVD Respiratory exam: PRESENT: symmetrical, unlabored, wheezes - Improved from yesterday. ABSENT: accessory muscle use, rales, retraction, tachypnea Musculoskeletal exam: PRESENT: ambulatory Neurological exam: PRESENT: alert, awake, oriented to person, oriented to place, oriented to time Psychiatric exam: ABSENT: agitated, anxious Results Laboratory Results: WBC 25.1 10^3/uL (4.0-10.5) H 02/02/20 06:35 RBC 4.28 10^6/uL (3.72-5.28) 02/02/20 06:35 Hgb 12.3 g/dL (12.0-15.5) 02/02/20 06:35 Hct 38.1 % (36.0-47.0) 02/02/20 06:35 MCV 89 fl (80-97) 02/02/20 06:35 MCH 28.7 pg (27.0-33.4) 02/02/20 06:35 MCHC 32.2 g/dL (32.0-36.0) 02/02/20 06:35 RDW 14.9 % (11.5-14.0) H 02/02/20 06:35 Plt Count 368 10^3/uL (150-450) 02/02/20 06:35 Sodium 137.1 mmol/L (137-145) 02/02/20 06:35 Potassium 4.3 mmol/L (3.6-5.0) 02/02/20 06:35 Chloride 103 mmol/L (98-107) 02/02/20 06:35 Carbon Dioxide 23 mmol/L (22-30) 02/02/20 06:35 Anion Gap 11 (5-19) 02/02/20 06:35 BUN 19 mg/dL (7-20) 02/02/20 06:35 Creatinine 0.66 mg/dL (0.52-1.25) 02/02/20 06:35 Est GFR ( Amer) > 60 (>60) 02/02/20 06:35 Est GFR (MDRD) Non-Af > 60 (>60) 02/02/20 06:35 Glucose 206 mg/dL (75-110) H 02/02/20 06:35 POC Glucose 195 mg/dL (70-110) H 02/02/20 05:21 Hemoglobin A1c % 8.0 % (4.7-6.0) H 02/01/20 06:04 Calcium 9.5 mg/dL (8.4-10.2) 02/02/20 06:35 Magnesium 2.3 mg/dL (1.6-2.3) 02/02/20 06:35 Triglycerides 72 mg/dL (<150) 02/01/20 06:04 Cholesterol 227.58 mg/dL (0-200) H 02/01/20 06:04 LDL Cholesterol Direct 139 mg/dL (<100) H 02/01/20 06:04 VLDL Cholesterol 14.0 mg/dL (10-31) 02/01/20 06:04 HDL Cholesterol 89 mg/dL (>40) 02/01/20 06:04 TSH 0.46 uIU/mL (0.47-4.68) L 02/01/20 06:04 Free T3 pg/mL 3.23 pg/mL (2.77-5.27) 02/01/20 06:04 Impressions: Chest X-Ray 01/31/20 23:33 IMPRESSION: No acute cardiopulmonary disease. Plan Time Spent: Less than 30 Minutes Stroke Is this a Stroke Patient?: No Acute Heart Failure - Is this a Heart Failure Patient?: No
[2020-02-02 12:20] VITALS: BP 133/80
== END 2020-02-02 12:55 | disposition home or self-care (01) | DRG 189 ==
LOC: ER 23:26 → EH 02-01 02:59 → 4S 02-01 04:10
PROVIDERS: ADMIT Emergency Medicine; ATTEND Internal Medicine
PROC: 5A09357 Assistance with Respiratory Ventilation, Less than 24 Consecutive Hours, Continuous Positive Airway Pressure (ICD-10-PCS; principal; 2020-02-01)
DX: J96.01 Acute respiratory failure with hypoxia (principal); J45.51 Severe persistent asthma with (acute) exacerbation; Z68.41 Body mass index [BMI] 40.0-44.9, adult; E78.49 Other hyperlipidemia; E66.01 Morbid (severe) obesity due to excess calories; E11.9 Type 2 diabetes mellitus without complications; E05.90 Thyrotoxicosis, unspecified without thyrotoxic crisis or storm; I10 Essential (primary) hypertension; E21.3 Hyperparathyroidism, unspecified; K21.9 Gastro-esophageal reflux disease without esophagitis; Z79.899 Other long term (current) drug therapy; Z88.2 Allergy status to sulfonamides
CPT/HCPCS: 36415; 71046; 80048; 80061; 82962; 83036; 83735; 84443; 84481; 85027; 94640; 94660; 96365; 96375; 99285; J1815; J2920; J2930; J3475; J3490; J7120; J7512; J7614; J7620

== ENCOUNTER 2020-02-22 15:03 | Emergency (ER) | payer SELFPAY ==
[2020-02-22] MEDS ORDERED: TERBUTALINE SULFATE INJ/PF 1 MG/1 ML SDV SUBCUT ONE (15:36)
[2020-02-22] MEDS ORDERED: PREDNISONE 20 MG TABLET PO ONE (15:36)
--- NOTE | 2020-02-22 15:49 | ER Document Report ---
ED Respiratory Problem - General Chief Complaint: Asthma Exacerbation Stated Complaint: MED REFILL/ASTHMA MED Time Seen by Provider: 02/22/20 15:26 Primary Care Provider: [facility] [Provider Group] - Follow up in 3-5 days Notes: Patient is a 44-year-old female who presents emergency department with a chief complaint of shortness of breath. Patient has a history of asthma and COPD. Patient states she ran out of her prednisone. She normally takes 20 mg daily. She ran out of her medicine yesterday. She has been using her albuterol inhaler to help with her shortness of breath, but has had little relief. Denies any chest pain. TRAVEL OUTSIDE OF THE [place] IN LAST 30 DAYS: No - Related Data Allergies/Adverse Reactions: Sulfa (Sulfonamide Antibiotics) Allergy (Verified 02/22/20 15:24) Past Medical History - General Information source: Patient - Social History Smoking Status: Never Smoker Family History: None - Past Medical History Cardiac Medical History: Reports: Hx Hypercholesterolemia - A familial hyperlipidemia variant is strongly suspected, Hx Hypertension Denies: Hx Atrial Fibrillation, Hx Congestive Heart Failure, Hx Coronary Artery Disease, Hx DVT, Hx Heart Attack, Hx Pulmonary Embolism Pulmonary Medical History: Reports: Hx Asthma - Severe chronic extrinsic asthma, Hx Pneumonia, Hx Respiratory Failure Denies: Hx Bronchitis, Hx COPD, Hx Intubation, Hx Tuberculosis Neurological Medical History: Denies: Hx Cerebrovascular Accident, Hx Seizures Endocrine Medical History: Reports: Hx Diabetes Mellitus Type 2 - Borderline diabetes mellitus type 2 per patient, Hx Hyperthyroidism. Denies: Hx Diabetes Mellitus Type 1, Hx Hypothyroidism Renal/ Medical History: Reports: Hx Kidney Stones. Denies: Hx Peritoneal Dialysis GI Medical History: Reports: Hx Gastroesophageal Reflux Disease. Denies: Hx Cirrhosis, Hx Crohn's Disease, Hx Hepatitis, Hx Hiatal Hernia, Hx Ulcerative Colitis Musculoskeletal Medical History: Denies Hx Arthritis Skin Medical History: Denies Hx Eczema, Denies Hx Psoriasis Psychiatric Medical History: Denies: Hx Depression Infectious Medical History: Denies: Hx Hepatitis Past Surgical History: Reports: Hx Breast Surgery - left breast lump removed, Hx Genitourinary Surgery - Bladder tuck, Hx Hysterectomy, Hx Orthopedic Surgery - Right ankle: open reduction with internal fixation, Hx Tubal Ligation. Denies: Hx Pacemaker - Immunizations Hx Diphtheria, Pertussis, Tetanus Vaccination: Yes Hx Pneumococcal Vaccination: 03/30/15 Review of Systems - Review of Systems Notes: REVIEW OF SYSTEMS: CONSTITUTIONAL : Denies recent illness. Denies recent unintentional weight loss. Denies fever, chills, or sweats. EENT: Denies eye, ear, throat, or mouth pain, discharge, or symptoms. Denies nasal or sinus congestion. CARDIOVASCULAR: Denies chest pain. RESPIRATORY: See HPI. GASTROINTESTINAL: Denies nausea, vomiting, and diarrhea. Denies abdominal pain. Denies constipation. GENITOURINARY: Denies difficulty urinating, burning, blood in urine, urgency or frequency. MUSCULOSKELETAL: Denies neck and back pain. Denies joint pain or swelling. SKIN: Denies rash, itchiness, or lesions HEMATOLOGIC : Denies easy bruising or bleeding. LYMPHATIC: Denies swollen, painful, enlarged glands. NEUROLOGICAL: Denies no numbness or tingling denies weakness. Denies headache. Denies altered mental status. Denies alteration in speech. PSYCHIATRIC: Denies stress, anxiety, alteration in sleep patterns, or depression. All other systems reviewed and negative. Physical Exam - Vital signs Vitals: Temp Pulse Resp BP Pulse Ox 98.3 F 96 22 H 138/86 H 97 02/22/20 15:10 02/22/20 15:10 02/22/20 15:10 02/22/20 15:10 02/22/20 15:10 - Notes Notes: PHYSICAL EXAMINATION: GENERAL: Appears well, healthy, well-nourished, no acute distress. HEAD: Normocephalic, atraumatic. EYES: PERRL, conjunctiva normal, all extraocular movements intact, sclera nonicteric ENT: Moist mucous membranes. NECK: Supple, no noticeable swelling, redness, rash. Normal range of motion. LUNGS: Inspiratory and expiratory wheezes noted throughout all lung soto. CARDIOVASCULAR: S1-S2, regular rate, regular rhythm. Radial pulses 2+, normal. ABDOMEN: Normoactive bowel sounds. Soft, nontender, no guarding, no rebound tenderness, and no masses palpated. EXTREMITIES: Normal strength and range of motion, no pitting or edema. No cyanosis. NEUROLOGICAL: Moves all extremities upon command. Strength 5/5 in all extremities. PSYCH: Normal mood, normal affect. SKIN: Warm, dry. No rash, lesions, ulcerations noted. Normal skin turgor. Course - Re-evaluation Re-evalutation: 02/22/20 16:59 Patient states that she feels better after receiving terbutaline and prednisone. We will continue her normal prednisone at home. Chest x-ray is normal. No pneumonia noted. She will follow-up with [facility]. Follow-up precautions were given. Verbal discharge instructions were given to the patient. They verbalized understanding. They are stable for discharge. - Vital Signs Vital signs: Temp Pulse Resp BP Pulse Ox 98.6 F 99 20 127/71 H 96 02/22/20 17:32 02/22/20 17:32 02/22/20 17:32 02/22/20 17:32 02/22/20 17:32 Discharge - Discharge Clinical Impression: Asthma exacerbation Qualifiers: Asthma severity: mild Asthma persistence: intermittent Qualified Code(s): J45.21 - Mild intermittent asthma with (acute) exacerbation Condition: Stable Disposition: HOME, SELF-CARE Instructions: Asthma ([facility]), Inhaled Bronchodilators ([facility]) Additional Instructions: You are seen today in the emergency department for your asthma. Please follow- up with the [facility] in regards to this visit. You are being restarted on your steroids. Take them as directed. Prescriptions: Prednisone [Deltasone 20 mg Tablet] 1 tab PO DAILY #30 tablet Referrals: [facility] [Provider Group] - Follow up in 3-5 days
--- NOTE | 2020-02-22 16:39 | RADIOLOGY REPORT (SQ) ---
EXAM DESCRIPTION: CHEST SINGLE VIEW IMAGES COMPLETED DATE/TIME: 02/22/2020 4:18 pm REASON FOR STUDY: shortness of breath COMPARISON: PA and lateral views of the chest from 02/01/2020. EXAM PARAMETERS: NUMBER OF VIEWS: One view TECHNIQUE: An AP view of the chest was obtained. RADIATION DOSE: NA LIMITATIONS: None. FINDINGS: LUNGS AND PLEURA: No consolidation, pleural effusion or pneumothorax. MEDIASTINUM AND HILAR STRUCTURES: No mediastinal or hilar contour abnormality. HEART AND VASCULAR STRUCTURES: The cardiac silhouette and pulmonary vasculature are within normal beltran its. BONES: No acute findings. HARDWARE: None in the chest. OTHER: No other finding. IMPRESSION: No acute cardiopulmonary process. TECHNICAL DOCUMENTATION: JOB ID: [id number] 2010 [employer]- All Rights Reserved Reading location - IP/workstation name: [email or web address]
[2020-02-22 17:35] VITALS: BP 127/71
== END 2020-02-22 17:36 | disposition home or self-care (01) ==
LOC: ER 15:03
DX: Z76.0 Encounter for issue of repeat prescription (principal); J45.21 Mild intermittent asthma with (acute) exacerbation; J45.901 Unspecified asthma with (acute) exacerbation; I10 Essential (primary) hypertension; E11.9 Type 2 diabetes mellitus without complications
CPT/HCPCS: 99283; 96372; 71045; J7512; J3105

== ENCOUNTER 2020-05-27 20:21 | Emergency (ER) | payer SELFPAY ==
--- NOTE | 2020-05-27 22:03 | RADIOLOGY REPORT (SQ) ---
XR CHEST 1 VIEW HISTORY: Chest pain. COMPARISON: 02/22/2020 FINDINGS: The heart size is within normal limits. There is no pulmonary vascular congestion. No consolidation, pleural effusion, or pneumothorax is seen. The bony structures are preserved. IMPRESSION: No evidence of acute cardiopulmonary disease.
--- NOTE | 2020-05-27 22:36 | ER Document Report ---
HPI - HPI Patient complains to provider of: Loss of taste Time Seen by Provider: 05/27/20 22:30 Onset: Other - This 45-year-old female presented to the emergency room today stating she had a loss of taste and generalized intermittent malaise for the last 48 hours Onset/Duration: Intermittent Severity: Moderate Associated Symptoms: None Exacerbated by: Denies Relieved by: Denies Similar symptoms previously: No Recently seen / treated by doctor: No - REPRODUCTIVE Reproductive: DENIES: : Past Medical History - General Information source: Patient - Social History Smoking Status: Never Smoker Cigarette use (# per day): No Chew tobacco use (# tins/day): No Smoking Education Provided: No Frequency of alcohol use: Rare Drug Abuse: None Family History: None - Past Medical History Cardiac Medical History: Reports: Hx Hypercholesterolemia - A familial hy perlipidemia variant is strongly suspected, Hx Hypertension Denies: Hx Atrial Fibrillation, Hx Congestive Heart Failure, Hx Coronary Artery Disease, Hx DVT, Hx Heart Attack, Hx Pulmonary Embolism Pulmonary Medical History: Reports: Hx Asthma - Severe chronic extrinsic asthma, Hx Pneumonia, Hx Respiratory Failure Denies: Hx Bronchitis, Hx COPD, Hx Intubation, Hx Tuberculosis Neurological Medical History: Denies: Hx Cerebrovascular Accident, Hx Seizures Endocrine Medical History: Reports: Hx Diabetes Mellitus Type 2 - Borderline diabetes mellitus type 2 per patient, Hx Hyperthyroidism. Denies: Hx Diabetes Mellitus Type 1, Hx Hypothyroidism Renal/ Medical History: Reports: Hx Kidney Stones. Denies: Hx Peritoneal Dialysis GI Medical History: Reports: Hx Gastroesophageal Reflux Disease. Denies: Hx Cirrhosis, Hx Crohn's Disease, Hx Hepatitis, Hx Hiatal Hernia, Hx Ulcerative Colitis Musculoskeletal Medical History: Denies Hx Arthritis Skin Medical History: Denies Hx Eczema, Denies Hx Psoriasis Psychiatric Medical History: Denies: Hx Depression Infectious Medical History: Denies: Hx Hepatitis Past Surgical History: Reports: Hx Breast Surgery - left breast lump removed, Hx Genitourinary Surgery - Bladder tuck, Hx Hysterectomy, Hx Orthopedic Surgery - Right ankle: open reduction with internal fixation, Hx Tubal Ligation. Denies: Hx Pacemaker - Immunizations Hx Diphtheria, Pertussis, Tetanus Vaccination: Yes Hx Pneumococcal Vaccination: 02/07/15 Vertical Provider Document - CONSTITUTIONAL Agree With Documented VS: Yes - INFECTION CONTROL TRAVEL OUTSIDE OF THE [place] IN LAST 30 DAYS: No - HEENT HEENT: Atraumatic, Normocephalic, PERRLA - NECK Neck: Normal Inspection - RESPIRATORY Respiratory: Breath Sounds Normal, No Respiratory Distress - CARDIOVASCULAR Cardiovascular: Regular Rate, Regular Rhythm - GI/ABDOMEN Gastrointestinal: Abdomen Soft, Abdomen Non-Tender - BACK Back: Normal Inspection - MUSCULOSKELETAL/EXTREMETIES Musculoskeletal/Extremeties: MAEW - DERM Integumentary: Warm Course - Re-evaluation Re-evalutation: 05/27/20 23:42 No chest pain no shortness of breath no exertional chest pain no exertional shortness of breath been the patient had a long conversation about COVID self- isolation increasing fluid antipyretics as needed follow-up with PMD in 3 to 5 days. - Laboratory Result Diagrams: 05/27/20 22:36 05/27/20 22:36 Laboratory results interpreted by me: 05/27/20 23:42 Labs- All tests 24 hr 05/27/20 05/27/20 05/27/20 22:36 22:36 22:36 WBC 13.0 H RBC 4.50 Hgb 13.2 Hct 40.9 MCV 91 MCH 29.4 MCHC 32.4 RDW 14.1 H Plt Count 332 Lymph % (Auto) 7.6 L [place] % (Auto) 1.0 L Eos % (Auto) 0.4 Baso % (Auto) 0.9 Absolute Neuts (auto) 11.7 H Absolute Lymphs (auto) 1.0 Absolute Monos (auto) 0.1 Absolute Eos (auto) 0.0 Absolute Basos (auto) 0.1 Seg Neutrophils % 90.1 H Sodium 134.1 L Potassium 4.6 Chloride 105 Carbon Dioxide 21 L Anion Gap 8 BUN 7 Creatinine 0.68 Est GFR ( Amer) > 60 Est GFR (MDRD) Non-Af > 60 Glucose 310 H Calcium 9.6 Total Bilirubin 0.4 Direct Bilirubin 0.0 Neonat Total Bilirubin Not Reportable Neonat Direct Bilirubin Not Reportable Neonat Indirect Bili Not Reportable AST 30 ALT 25 Alkaline Phosphatase 123 Troponin I < 0.012 Total Protein 7.4 Albumin 4.2 - Diagnostic Test Radiology results interpreted by me: 05/27/20 23:42 Chest X-Ray 05/27/20 20:34 IMPRESSION: No evidence of acute cardiopulmonary disease. Discharge - Discharge Clinical Impression: Viral respiratory illness Condition: Good Disposition: HOME, SELF-CARE Instructions: Acetaminophen, Fever ([facility]), Viral Syndrome ([facility]), Upper Res piratory Illness ([facility]) Additional Instructions: Patient should self isolate pending COVID testing increase fluid intake antipyretics as needed follow-up with PMD return for any change worsening condition. Prescriptions: Ibuprofen [Motrin 600 Mg Tablet] 600 mg PO TID #15 tablet Forms: Return to Work
[2020-05-27 23:00] LABS: ABSOLUTE BASOPHILS # (AUTO) 0.1 10^3/uL (0.0-0.2); ABSOLUTE MONOCYTES (AUTO) 0.1 10^3/uL (0.1-1.4); ABSOLUTE NEUT (AUTO) 11.7 10^3/uL (1.7-8.2); BASOPHILS % (AUTO) 0.9 % (0-2); EOSINOPHILS % (AUTO) 0.4 % (0-6); HEMATOCRIT 40.9 % (36.0-47.0); HEMOGLOBIN 13.2 g/dL (12.0-15.5); LYMPHOCYTES % (AUTO) 7.6 % (13-45); MEAN CORPUSCULAR HEMOGLOBIN 29.4 pg (27.0-33.4); MEAN CORPUSCULAR HGB CONC 32.4 g/dL (32.0-36.0); MEAN CORPUSCULAR VOLUME 91 fl (80-97); PLATELET COUNT 332 10^3/uL (150-450); RED CELL DISTRIBUTION WIDTH 14.1 % (11.5-14.0); SEGMENTED NEUTROPHILS % (AUTO) 90.1 % (42-78); TOTAL CELLS COUNTED % (AUTO) 100 %
[2020-05-27 23:19] LABS: ALBUMIN 4.2 g/dL (3.5-5.0); ALKALINE PHOSPHATASE 123 U/L (38-126); ANION GAP 8 (5-19); ASPARTATE AMINO TRANSFERASE 30 U/L (14-36); BILIRUBIN,TOTAL 0.4 mg/dL (0.2-1.3); BLOOD UREA NITROGEN 7 mg/dL (7-20); CALCIUM 9.6 mg/dL (8.4-10.2); CARBON DIOXIDE 21 mmol/L (22-30); CHLORIDE 105 mmol/L (98-107); GLUCOSE 310 mg/dL (75-110); POTASSIUM 4.6 mmol/L (3.6-5.0); TOTAL PROTEIN 7.4 g/dL (6.3-8.2)
[2020-05-27 23:56] VITALS: BP 140/80
--- NOTE | 2020-05-28 11:53 | EKG REPORT ---
SEVERITY:- NORMAL ECG - SINUS RHYTHM : Confirmed by: Filipe Ordoñez MD 28-May-2020 11:52:39
== END 2020-05-27 23:56 | disposition home or self-care (01) ==
LOC: ER 20:21
DX: B34.9 Viral infection, unspecified (principal); J98.9 Respiratory disorder, unspecified; R43.9 Unspecified disturbances of smell and taste; R53.81 Other malaise; E78.00 Pure hypercholesterolemia, unspecified; I10 Essential (primary) hypertension; Z20.828 Contact with and (suspected) exposure to other viral communicable diseases
CPT/HCPCS: 93005; 99284; 36415; 85025; 87635; 80053; 84484; 71045; 93010; C9803

== ENCOUNTER 2020-08-02 10:07 | Emergency (ER) | payer SELFPAY ==
--- NOTE | 2020-08-02 11:19 | ER Document Report ---
ED Medical Screen (RME) - General Chief Complaint: Palpitations Stated Complaint: PALPITATIONS Time Seen by Provider: 08/02/20 11:02 TRAVEL OUTSIDE OF THE [place] IN LAST 30 DAYS: No - HPI Notes: 08/02/20 11:11 45-year-old female with a history of asthma presents to the emergency room for complaints of sudden onset palpitations that started at 9 AM this morning. She states that her heart rate was in the 130s. States she also felt a sharp left sided chest pain that lasted only a few seconds and then went away, states a few days ago she fell like someone was sitting on her chest for a short period of time. Denies any prior history of palpitations. Does take prednisone and albuterol treatments, she did give herself an albuterol treatment this morning. Denies any prior cardiac history. I have greeted and performed a rapid initial assessment of this patient. A comprehensive ED assessment and evaluation of the patient, analysis of test results and completion of the medical decision making process will be conducted by additional ED providers. PHYSICAL EXAMINATION: GENERAL: Well-appearing, well-nourished and in no acute distress. HEAD: Atraumatic, normocephalic. EYES: Pupils equal round extraocular movements intact, conjunctiva are normal. NECK: Normal range of motion CV: tachycardia LUNGS: No respiratory distress - Related Data Allergies/Adverse Reactions: Sulfa (Sulfonamide Antibiotics) Allergy (Verified 02/22/20 15:24) Past Medical History - Social History Frequency of alcohol use: None Drug Abuse: None Family history: Reviewed & Not Pertinent - Past Medical History Cardiac Medical History: Reports: Hx Hypercholesterolemia - A familial hyperlipidemia variant is strongly suspected, Hx Hypertension Denies: Hx Atrial Fibrillation, Hx Congestive Heart Failure, Hx Coronary Artery Disease, Hx DVT, Hx Heart Attack, Hx Pulmonary Embolism Pulmonary Medical History: Reports: Hx Asthma - Severe chronic extrinsic asthma, Hx Pneumonia, Hx Respiratory Failure Denies: Hx Bronchitis, Hx COPD, Hx Intubation, Hx Tuberculosis Neurological Medical History: Denies: Hx Cerebrovascular Accident, Hx Seizures Endocrine Medical History: Reports: Hx Diabetes Mellitus Type 2 - Borderline diabetes mellitus type 2 per patient, Hx Hyperthyroidism. Denies: Hx Diabetes Mellitus Type 1, Hx Hypothyroidism Renal/ Medical History: Reports: Hx Kidney Stones. Denies: Hx Peritoneal Dialysis GI Medical History: Reports: Hx Gastroesophageal Reflux Disease. Denies: Hx Cirrhosis, Hx Crohn's Disease, Hx Hepatitis, Hx Hiatal Hernia, Hx Ulcerative Colitis Musculoskeltal Medical History: Denies Hx Arthritis Skin Medical History: Denies Hx Eczema, Denies Hx Psoriasis Psychiatric Medical History: Denies: Hx Depression Infectious Medical History: Denies: Hx Hepatitis Past Surgical History: Reports: Hx Breast Surgery - left breast lump removed, Hx Genitourinary Surgery - Bladder tuck, Hx Hysterectomy, Hx Orthopedic Surgery - Right ankle: open reduction with internal fixation, Hx Tubal Ligation. Denies: Hx Pacemaker - Immunizations Hx Diphtheria, Pertussis, Tetanus Vaccination: Yes Physical Exam - Vital signs Vitals: Temp Pulse Resp BP Pulse Ox 98.4 F 124 H 18 133/80 H 96 08/02/20 10:19 08/02/20 10:19 08/02/20 10:08/02/20 10:19 08/02/20 10:19 Course - Vital Signs Vital signs: Temp Pulse Resp BP Pulse Ox 98.4 F 124 H 18 133/80 H 96 08/02/20 10:19 08/02/20 10:19 08/02/20 10:19 08/02/20 10:19 08/02/20 10:19
[2020-08-02 11:39] LABS: HEMATOCRIT 40.4 % (36.0-47.0); HEMOGLOBIN 13.4 g/dL (12.0-15.5); MEAN CORPUSCULAR HEMOGLOBIN 29.7 pg (27.0-33.4); MEAN CORPUSCULAR HGB CONC 33.1 g/dL (32.0-36.0); MEAN CORPUSCULAR VOLUME 90 fl (80-97); PLATELET COUNT 306 10^3/uL (150-450); RED BLOOD COUNT 4.49 10^6/uL (3.72-5.28); RED CELL DISTRIBUTION WIDTH 14.5 % (11.5-14.0); WHITE BLOOD COUNT 18.4 10^3/uL (4.0-10.5)
[2020-08-02 11:42] LABS: APPEARANCE,URINE CLEAR; BILIRUBIN,URINE NEGATIVE (NEGATIVE); COLOR,URINE YELLOW; GLUCOSE, URINE >=500 mg/dL (NEGATIVE); KETONES,URINE 20 mg/dL (NEGATIVE); LEUKOCYTE ESTERASE,URINE NEGATIVE (NEGATIVE); NITRITE,URINE NEGATIVE (NEGATIVE); PROTEIN,URINE NEGATIVE (NEGATIVE); URINE SPECIFIC GRAVITY 1.024; UROBILINOGEN,URINE NEGATIVE mg/dL (<2.0)
--- NOTE | 2020-08-02 12:01 | RADIOLOGY REPORT (SQ) ---
EXAM DESCRIPTION: CHEST 2 VIEWS IMAGES COMPLETED DATE/TIME: 08/02/2020 11:39 am REASON FOR STUDY: Palpitations, intermittent chest pain COMPARISON: 05/27/2020. EXAM PARAMETERS: NUMBER OF VIEWS: two views TECHNIQUE: Digital Frontal and Lateral radiographic views of the chest acquired. RADIATION DOSE: NA LIMITATIONS: none FINDINGS: LUNGS AND PLEURA: No opacities, masses or pneumothorax. No pleural effusion. MEDIASTINUM AND HILAR STRUCTURES: No masses or contour abnormalities. HEART AND VASCULAR STRUCTURES: Heart normal size. No evidence for failure. BONES: No acute findings. HARDWARE: None in the chest. OTHER: No other significant finding. IMPRESSION: NO ACUTE RADIOGRAPHIC FINDING IN THE CHEST. TECHNICAL DOCUMENTATION: JOB ID: [id number] 2010 [employer]- All Rights Reserved Reading location - IP/workstation name: [email or web address]
[2020-08-02 12:07] LABS: ABSOLUTE LYMPHOCYTES# (MANUAL) 0.6 10^3/uL (0.5-4.7); ABSOLUTE MONOCYTES # (MANUAL) 0.7 10^3/uL (0.1-1.4); BASOPHILS % (MANUAL) 0 % (0-2); EOSINOPHILS % (MANUAL) 0 % (0-6); LYMPHOCYTES % (MANUAL) 3 % (13-45); MONOCYTES % (MANUAL) 4 % (3-13); RBC MORPHOLOGY COMMENT NORMO-CYTIC/CHROMIC; SEGMENTED NEUTROPHILS % (MAN) 93 % (42-78); TOTAL CELLS COUNTED 100
[2020-08-02 12:08] LABS: PLATELET COMMENT ADEQUATE
[2020-08-02 12:26] LABS: ALBUMIN 4.2 g/dL (3.5-5.0); ALKALINE PHOSPHATASE 136 U/L (38-126); ANION GAP 14 (5-19); ASPARTATE AMINO TRANSFERASE 22 U/L (14-36); BILIRUBIN,DIRECT 0.2 mg/dL (0.0-0.4); BILIRUBIN,TOTAL 0.6 mg/dL (0.2-1.3); BLOOD UREA NITROGEN 9 mg/dL (7-20); CALCIUM 9.2 mg/dL (8.4-10.2); CARBON DIOXIDE 18 mmol/L (22-30); CHLORIDE 101 mmol/L (98-107); GLUCOSE 362 mg/dL (75-110); POTASSIUM 3.9 mmol/L (3.6-5.0); TOTAL PROTEIN 7.1 g/dL (6.3-8.2)
--- NOTE | 2020-08-02 14:35 | EKG REPORT ---
SEVERITY:- OTHERWISE NORMAL ECG - SINUS TACHYCARDIA : Confirmed by: Oksana Shen MD 02-Aug-2020 14:34:43
[2020-08-02] MEDS ORDERED: NORMAL SALINE 1000 ML 1,000 ML IV ONE (14:37)
--- NOTE | 2020-08-02 14:52 | ER Document Report ---
ED General - General Chief Complaint: Palpitations Stated Complaint: PALPITATIONS Time Seen by Provider: 08/02/20 11:02 TRAVEL OUTSIDE OF THE [place] IN LAST 30 DAYS: No - HPI Notes: Patient is a 45-year-old female who presents to the emergency department for evaluation of the sensation of palpitations that are heart was racing. She states this started suddenly at 9 AM. She states it has improved since then. She used her phone to take her heart rate, states it was as high as 138. She states that the sensation has improved, for a while she did feel like she had a weight on her chest. She reports a similar sensation a few days ago. Neither of these sensations were associated with exertion. She states she does feel slightly short of breath with this as well. She states she took her regular me dications as prescribed this morning. She did also use her asthma medication. The patient has been on chronic prednisone for several years. Patient denies any personal history of blood clots. She has had no recent prolonged immobilization or surgeries. No history of cancer. - Related Data Allergies/Adverse Reactions: Sulfa (Sulfonamide Antibiotics) Allergy (Verified 02/22/20 15:24) Past Medical History - General Information source: Patient - Social History Smoking Status: Never Smoker Frequency of alcohol use: None Drug Abuse: None Family History: Other - Patient adopted, unsure - Past Medical History Cardiac Medical History: Reports: Hx Hypercholesterolemia - A familial hyperlipidemia variant is strongly suspected, Hx Hypertension Denies: Hx Atrial Fibrillation, Hx Congestive Heart Failure, Hx Coronary Artery Disease, Hx DVT, Hx Heart Attack, Hx Pulmonary Embolism Pulmonary Medical History: Reports: Hx Asthma - Severe chronic extrinsic asthma, Hx Pneumonia, Hx Respiratory Failure Denies: Hx Bronchitis, Hx COPD, Hx Intubation, Hx Tuberculosis Neurological Medical History: Denies: Hx Cerebrovascular Accident, Hx Seizures Endocrine Medical History: Reports: Hx Diabetes Mellitus Type 2 - Borderline diabetes mellitus type 2 per patient, Hx Hyperthyroidism. Denies: Hx Diabetes Mellitus Type 1, Hx Hypothyroidism Renal/ Medical History: Reports: Hx Kidney Stones. Denies: Hx Peritoneal Dialysis GI Medical History: Reports: Hx Gastroesophageal Reflux Disease. Denies: Hx Cirrhosis, Hx Crohn's Disease, Hx Hepatitis, Hx Hiatal Hernia, Hx Ulcerative Colitis Musculoskeletal Medical History: Denies Hx Arthritis Skin Medical History: Denies Hx Eczema, Denies Hx Psoriasis Psychiatric Medical History: Denies: Hx Depression Infectious Medical History: Denies: Hx Hepatitis Past Surgical History: Reports: Hx Breast Surgery - left breast lump removed, Hx Genitourinary Surgery - Bladder tuck, Hx Hysterectomy, Hx Orthopedic Surgery - Right ankle: open reduction with internal fixation, Hx Tubal Ligation. Denies: Hx Pacemaker - Immunizations Hx Diphtheria, Pertussis, Tetanus Vaccination: Yes Hx Pneumococcal Vaccination: 02/07/15 Review of Systems - Review of Systems Constitutional: No symptoms reported EENT: No symptoms reported Cardiovascular: See HPI Respiratory: See HPI Gastrointestinal: No symptoms reported Genitourinary: No symptoms reported Musculoskeletal: No symptoms reported Skin: No symptoms reported Neurological/Psychological: No symptoms reported Physical Exam - Vital signs Vitals: Temp Pulse Resp BP Pulse Ox 98.4 F 124 H 18 133/80 H 96 08/02/20 10:19 08/02/20 10:19 08/02/20 10:19 08/02/20 10:08/02/20 10:19 - Notes Notes: This is a very pleasant 45-year-old female who appears her stated age, no acute distress. Vital signs reviewed, please refer to chart. Head is normocephalic, atraumatic. Pupils equal round, reactive to light. Neck is supple without meningismus. Heart reveals mild tachycardia with normal S1, S2. Lungs are clear to auscultation bilaterally. Abdomen is soft, nontender, normoactive bowel sounds throughout. Extremities without cyanosis, clubbing. Posterior calves are nontender. Peripheral pulses are equal. Skin is warm and dry. Patient is awake, alert, neurological exam is nonfocal. Course - Re-evaluation Re-evalutation: 08/02/20 14:50 Patient presents to the emergency department for evaluation of palpitations. On arrival her heart rate was in the 120s. She had laboratory investigations and imaging is ordered through triage. Laboratory investigations revealed a leukocytosis, likely secondary to her chronic prednisone therapy. The patient also has mild hyponatremia as well as a decrease in her bicarb. I do suspect some mild dehydration, the patient was given IV fluids. Otherwise, her initial troponin is undetectable. A second troponin will be added given her multiple risk factors, although certainly anginal chest pain would be unlikely given the fact that it was nonexertional. Her EKG fails to show any significant changes other than rate. Patient is currently stable, awaiting second troponin. We will continue to monitor. 08/02/20 17:06 Patient's repeat troponin is completely undetectable. She has no symptoms at this time whatsoever. She is only gotten about 300 cc of her fluids, her current heart rate is 105. She is asymptomatic. I do not have a clear etiology for tachycardia, but she has no shortness of breath. She actually has a diagnosis of tachycardia here in the hospital charting in the past. It is sinus. She was no other acute symptoms. I told the patient that she needs to call her doctor tomorrow morning to establish follow-up as soon as possible. She voiced understanding. Otherwise she is to continue to stay hydrated, take her home medications, and return to the ED with worsening or new concerning symptoms of any sort. - Vital Signs Vital signs: Temp Pulse Resp BP Pulse Ox 98.4 F 124 H 21 H 117/89 H 93 08/02/20 10:19 08/02/20 10:19 08/02/20 16:01 08/02/20 16:01 08/02/20 16:01 - Laboratory Result Diagrams: 08/02/20 11:25 08/02/20 11:25 Laboratory results interpreted by me: 08/02/20 08/02/20 08/02/20 11:15 11:25 11:25 WBC 18.4 H RDW 14.5 H Seg Neuts % (Manual) 93 H Lymphocytes % (Manual) 3 L Abs Neuts (Manual) 17.1 H Sodium 132.6 L Carbon Dioxide 18 L Glucose 362 H Alkaline Phosphatase 136 H Urine Glucose (UA) >=500 H Urine Ketones 20 H - Diagnostic Test Radiology reviewed: Reports reviewed Radiology results interpreted by me: 08/02/20 17:07 Chest X-Ray 08/02/20 11:10 IMPRESSION: NO ACUTE RADIOGRAPHIC FINDING IN THE CHEST. Discharge - Discharge Clinical Impression: Tachycardia, Palpitations, Hyponatremia Condition: Stable Disposition: HOME, SELF-CARE Instructions: Palpitations (Irregular or Rapid Heartrate) ([facility]), Beta Blockers ([facility]) Additional Instructions: Continue to take your regular medications as prescribed. Follow-up with your primary care provider this week. If you develop chest pain, increased discolored breathing, or any other new concerning symptoms, please return immediately to the ER for further evaluation.
[2020-08-02 18:20] VITALS: BP 137/88
== END 2020-08-02 18:24 | disposition home or self-care (01) ==
LOC: ER 10:07
DX: R00.0 Tachycardia, unspecified (principal); R00.2 Palpitations; E87.1 Hypo-osmolality and hyponatremia; E11.9 Type 2 diabetes mellitus without complications; I10 Essential (primary) hypertension; Z88.2 Allergy status to sulfonamides
CPT/HCPCS: 93005; 99285; 96360; 96361; 36415; 83735; 84443; 85025; 80053; 81001; 84484; 71046; 93010; J7030